=== PATIENT | female | born 1940 ===

== ENCOUNTER 2021-10-03 14:04 | Inpatient (IN) | payer MEDICARE, OTHER ==
[~2021-10-03] VITALS: Ht 152.4 cm; Wt 58.9 kg
--- NOTE | 2021-10-03 15:00 | NUR ---
Admission Note with Justification for Admission to [facility] Patient admitted to [facility] for protective oversight for emergency stabilization of acute psychiatric crisis. Pt admitted from: Home Mode of arrival: POV Accompanied By: Family Precipitating behaviors that initiated intake and admission: Description of failure of out patient attempts at stabilization in previous setting list behavior and medication trials: Behaviors and assessment findings upon admission: Patient is friendly with staff. She is upset with family as they told her she is just coming to do PT not to be admitted. She has a small skin tear on left forearm. She reports 10/10 anxiety, denies SI/pain/discomfort. Patient is A/O X3, not oriented to situation as she wasn't informed. She has upper dentures. She has clean clothes on but skin is dirty under breast. Plan: Admit for protective oversight for adjustment and stabilization of medications, behaviors and mood. Intense treatment regimen including groups, medication adjustments, therapy, consistent regimen for ADL's, self care, and sleep hygiene. Daily monitoring by Inpatient staff, Psychiatry, and Medical Physician.
[2021-10-03 16:28] VITALS: BP 160/85
[2021-10-03] MEDS ORDERED: METHYL SALICYLATE/MENTHOL TOPICAL OINTMENT 57GM TUBE. TP PRN (17:00)
[2021-10-03] MEDS ORDERED: MAGNESIUM HYDROXIDE 2,400 MG/30 ML ORAL.SUSP. PO PRN (17:00)
[2021-10-03] MEDS ORDERED: DONE10TA7 PO (18:30)
[2021-10-03] MEDS ORDERED: ASPI-171 PO (18:30)
[2021-10-03] MEDS ORDERED: CELE-20 PO (18:30)
[2021-10-03] MEDS ORDERED: LISI5TAB15 PO (18:30)
[2021-10-03] MEDS ORDERED: ATOR40TA59 PO (18:30)
[2021-10-03] MEDS ORDERED: ALPR0.254 PO (18:30)
[2021-10-03] MEDS ORDERED: MULT-445 PO (19:36)
[2021-10-03] MEDS ORDERED: LIDO700A21 TP (19:36)
[2021-10-03] MEDS ORDERED: traZODone 50 MG TABLET. PO PRN (19:45)
[2021-10-03 19:47] LABS: BASO % 0 % (0-3); EOS # 0.1 x10^3/uL (0.0-0.7); EOS % 1 % (0-3); HEMATOCRIT 37.7 % (36.0-47.0); HEMOGLOBIN 12.6 g/dL (12.0-15.5); LYMPH # 1.4 x10^3/uL (1.0-4.8); LYMPH % 16 % (24-48); MEAN CORPUSCULAR HEMOGLOBIN 31 pg (25-35); MEAN CORPUSCULAR HGB CONC 34 g/dL (31-37); MEAN CORPUSCULAR VOLUME 93 fL (79-100); MONO # 0.7 x10^3/uL (0.0-1.1); MONO % 8 % (0-9); NEUT # 6.6 x10^3uL (1.8-7.7); NEUT % 74 % (31-73); PLATELET COUNT 206 x10^3/uL (140-400); RED BLOOD COUNT 4.05 x10^6/uL (3.50-5.40); RED CELL DISTRIBUTION WIDTH 14.1 % (11.5-14.5); WHITE BLOOD COUNT 8.9 x10^3/uL (4.0-11.0)
[2021-10-03 20:00] LABS: ALBUMIN 3.3 g/dL (3.4-5.0); ALBUMIN/GLOBULIN RATIO 0.9 (1.0-1.7); CALCIUM 8.7 mg/dL (8.5-10.1); CREATININE 0.9 mg/dL (0.6-1.0); GFR 59.8; MAGNESIUM 2.4 mg/dL (1.8-2.4); POTASSIUM 3.9 mmol/L (3.5-5.1); TOTAL BILIRUBIN 0.4 mg/dL (0.2-1.0); TOTAL PROTEIN 7.1 g/dL (6.4-8.2)
[2021-10-03] MEDS: DONEPEZIL HCL 10 MG TABLET PO SCH (20:30)
[2021-10-03] MEDS: ALPRAZolam 0.25 MG TABLET PO SCH (20:30)
[2021-10-03] MEDS: PATCH REMOVAL. MC SCH (20:30)
--- NOTE | 2021-10-03 20:32 | PDOC ---
Exam Note: Rip Note: Please also refer to the separate dictated note~for this date of service dictated separately.~Patient seen individually. Discussed the patient with Nursing staff reviewed the chart.~Reviewed interim history and current functioning. Reviewed vital signs,~Labs/ Radiology~and current medications noted below. Continue current treatment with the changes noted in the dictated addendum note Assessment: Vital Signs/I&O: Vital Signs Date Time Temp Pulse Resp B/P (MAP) Pulse Ox O2 Delivery O2 Flow Rate FiO2 10/03/21 16:28 98.6 91 18 160/85 (110) 97 Labs: Laboratory Tests Test 10/03/21 19:33 Sodium Level 144 mmol/L (136-145) Potassium Level 3.9 mmol/L (3.5-5.1) Chloride Level 107 mmol/L (98-107) Carbon Dioxide Level 27 mmol/L (21-32) Anion Gap 10 (6-14) Blood Urea Nitrogen 14 mg/dL (7-20) Creatinine 0.9 mg/dL (0.6-1.0) Estimated GFR (Cockcroft-Gault) 59.8 BUN/Creatinine Ratio 16 (6-20) Glucose Level 95 mg/dL (70-99) Calcium Level 8.7 mg/dL (8.5-10.1) Magnesium Level 2.4 mg/dL (1.8-2.4) Total Bilirubin 0.4 mg/dL (0.2-1.0) Aspartate Amino Transferase (AST) 21 U/L (15-37) Alanine Aminotransferase (ALT) 19 U/L (14-59) Alkaline Phosphatase 83 U/L (46-116) Total Protein 7.1 g/dL (6.4-8.2) Albumin 3.3 g/dL (3.4-5.0) L Albumin/Globulin Ratio 0.9 (1.0-1.7) L Current Medications: Meds: Current Medications Medications (Trade) Dose Ordered Sig/Mayito Route PRN Reason Start Time Stop Time Status Last Admin Dose Admin Alprazolam (Xanax) 0.25 mg QHS PO 10/03/21 21:00 10/03/21 20:30 Donepezil HCl (Aricept) 10 mg QHS PO 10/03/21 21:00 10/03/21 20:30 I have reviewed the current psychotropics carefully including drug interactions. Risk benefit ratio favors no change other than as noted in my dictated progress note. NÉSTOR WONG MD Oct 03, 2021 20:32
[2021-10-03] MEDS ORDERED: DONEPEZIL 23 MG TABLET PO SCH (21:00)
[2021-10-03] MEDS ORDERED: ALPRAZolam 0.25 MG TABLET PO ONE (21:00)
[2021-10-03] MEDS ORDERED: PATCH REMOVAL. MC SCH (21:00)
--- NOTE | 2021-10-03 22:28 | NUR ---
Pt located in her room this evening. Pt pleasant and interactive. Appears very anxious and is hyperverbal. A/O x3, except to situation. Pt states that her 4 children brought her here and told her she was going to PT. Pt compliant with whole medications. Pt knew the 2 pills that she takes at night and what their indications were. Pt reported that she has had numerous falls; she has broken her L femur, both knees and her right wrist is currently healing from a recent fall. Pt currently sleeping in bed with bed alarm on.
[2021-10-04 00:23] LABS: BACTERIA,URINE FEW /HPF (0-FEW); BILIRUBIN,URINE NEG (NEG); CLARITY,URINE CLEAR; COLOR,URINE YELLOW; GLUCOSE,URINE NEG (NEG); NITRITE,URINE NEG (NEG); RBC,URINE 0 /HPF (0-2); UROBILINOGEN,URINE 0.2 mg/dL (0.2 mg/dL)
[2021-10-04 00:24] LABS: SQUAMOUS EPITHELIAL CELL,UR FEW /LPF
[2021-10-04 05:52] VITALS: BP 126/73
[2021-10-04] MEDS ORDERED: ASPIRIN CHEWABLE 81 MG TABLET. PO SCH (08:00)
[2021-10-04] MEDS: ASPIRIN ENTERIC COATED 81 MG TABLET.DR. PO SCH (09:00)
[2021-10-04] MEDS ORDERED: LISINOPRIL 5 MG TABLET. PO SCH (09:00)
[2021-10-04] MEDS ORDERED: ATORVASTATIN CALCIUM 20 MG TABLET PO SCH ×2 (09:00)
[2021-10-04] MEDS: LISINOPRIL 5 MG TABLET. PO SCH (09:00)
[2021-10-04] MEDS ORDERED: CELECOXIB 100 MG CAPSULE PO SCH (09:00)
[2021-10-04] MEDS ORDERED: LIDOCAINE (700MG/PATCH) PATCH. TD SCH (09:00)
[2021-10-04] MEDS: LIDOCAINE (700MG/PATCH) PATCH. TP SCH (09:00)
[2021-10-04] MEDS: MULTIVITAMIN with MINERAL TABLET. PO SCH (09:01)
[2021-10-04] MEDS: CELECOXIB 100 MG CAPSULE PO SCH (09:01)
[2021-10-04 15:23] VITALS: BP 124/59
--- NOTE | 2021-10-04 15:33 | NUR ---
Nursing note: Patient is in bed room for morning medication & assessment. She is compliant with medications taken whole. She is alert and oriented x 4, she needed reminders for situation. She ambulates independently with walker, can be unstable at times. She denies any SI at this time. Patient denies pain/discomfort. She can be forgetful, anxious, & hyperverbal. She walked in the hallway several times through the day. She is currently in her room. Will continue to monitor.
--- NOTE | 2021-10-04 16:10 | NUR ---
BRIANNA received a call from pt dtr/DENNY, Jaylene, and informed her that SW planned to see pt tomorrow and would also call her to confirm pt reports. Jaylene wanted to let SW know that she would not be going home. Pt has medical issues and his main concern is his heart; he does not feel that he is able to care for pt as she has had more falls and he completes most of the house work. This has been discussed with pt but the family is able to recognize pt does not have a great memory and are not sure she has retained this. SW will attempt to have this discussion with pt and see if she remembers having this conversation and touch base with her tomorrow.
[2021-10-04 16:55] LABS: THYROID STIM HORMONE (TSH) 1.624 uIU/mL (0.358-3.740)
--- NOTE | 2021-10-04 20:55 | PDOC ---
Exam Note: Rip Note: Please also refer to the separate dictated note~for this date of service dictated separately.~Patient seen individually. Discussed the patient with Nursing staff reviewed the chart.~Reviewed interim history and current functioning. Reviewed vital signs,~Labs/ Radiology~and current medications noted below. Continue current treatment with the changes noted in the dictated addendum note Assessment: Vital Signs/I&O: Vital Signs Date Time Temp Pulse Resp B/P (MAP) Pulse Ox O2 Delivery O2 Flow Rate FiO2 10/04/21 15:23 97.8 79 18 124/59 (80) 97 I & O 10/03/21 10/03/21 10/04/21 15:00 23:00 07:00 Intake Total 600 ml Balance 600 ml Labs: Laboratory Tests Test 10/03/21 22:30 Urine Collection Type Unknown Urine Color Yellow Urine Clarity Clear Urine pH 6.0 Urine Specific Rudyard 1.025 Urine Protein Neg (NEG-TRACE) Urine Glucose (UA) Neg mg/dL (NEG) Urine Ketones (Stick) Neg mg/dL (NEG) Urine Blood Neg (NEG) Urine Nitrite Neg (NEG) Urine Bilirubin Neg (NEG) Urine Urobilinogen Dipstick 0.2 mg/dL (0.2 mg/dL) Urine Leukocyte Esterase Small (NEG) Urine RBC 0 /HPF (0-2) Urine WBC 1-4 /HPF (0-4) Urine Squamous Epithelial Cells Few /LPF Urine Bacteria Few /HPF (0-FEW) Current Medications: Meds: Current Medications Medications (Trade) Dose Ordered Sig/Mayito Route PRN Reason Start Time Stop Time Status Last Admin Dose Admin Alprazolam (Xanax) 0.25 mg QHS PO 10/03/21 21:00 10/03/21 20:30 Aspirin (Aspirin Enteric Coated) 81 mg DAILY PO 10/04/21 09:00 10/04/21 09:00 Donepezil HCl (Aricept) 10 mg QHS PO 10/03/21 21:00 10/03/21 20:30 Lisinopril (Prinivil) 5 mg DAILY PO 10/04/21 09:00 10/04/21 09:00 Atorvastatin Calcium (Lipitor) 40 mg DAILY PO 10/04/21 09:00 10/04/21 09:01 Celecoxib (CeleBREX) 200 mg DAILY PO 10/04/21 09:00 10/04/21 09:01 Multivitamins/ Calcium (Thera-M Plus) 1 tab DAILY PO 10/04/21 09:00 10/04/21 09:01 I have reviewed the current psychotropics carefully including drug interactions. Risk benefit ratio favors no change other than as noted in my dictated progress note. NÉSTOR WONG MD Oct 04, 2021 20:55
[2021-10-04] MEDS: PATCH REMOVAL. MC SCH (21:00)
[2021-10-04] MEDS: DONEPEZIL HCL 10 MG TABLET PO SCH (21:36)
[2021-10-04] MEDS: ALPRAZolam 0.25 MG TABLET PO SCH (21:36)
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
[2021-10-05 00:38] LABS: THYROXINE 7.7 ug/dL (4.5-12.0)
[2021-10-05 01:13] LABS: HEMOGLOBIN A1C 5.8 % (4.8-5.6)
--- NOTE | 2021-10-05 04:35 | NUR ---
Nursing Note The patient was located in her room for her assessment and medication pass. The patient took her medication whole. The patient was alert to name, date and location. The patient is currently sleeping in her room.
[2021-10-05 06:09] VITALS: BP 123/72
[2021-10-05] MEDS: ASPIRIN ENTERIC COATED 81 MG TABLET.DR. PO SCH (08:25)
[2021-10-05] MEDS: MULTIVITAMIN with MINERAL TABLET. PO SCH (08:25)
[2021-10-05] MEDS: SERTRALINE 25 MG TABLET. PO SCH (08:25)
[2021-10-05] MEDS: CELECOXIB 100 MG CAPSULE PO SCH (08:26)
[2021-10-05] MEDS: LISINOPRIL 5 MG TABLET. PO SCH (08:26)
[2021-10-05] MEDS: LIDOCAINE (700MG/PATCH) PATCH. TP SCH (09:00)
--- NOTE | 2021-10-05 09:14 | NUR ---
Pt A&Ox4, pleasant and cooperative. She is compliant with whole meds. She is appropriate with her interactions and is absent of disruptive behaviors on the unit. She c/o 8/10 pain in the R shoulder, Lidocaine patch applied and reassessment is pending. Plan of care continues, will pass to next shift.
--- NOTE | 2021-10-05 12:42 | CONS ---
DATE OF CONSULTATION: 10/04/2021 REASON FOR CONSULTATION: Medical management. HISTORY OF PRESENT ILLNESS: The patient is an 81-year-old female patient who presented from home ____ on account of being paranoid with suicidal thoughts, wants to , sundowning, agitated, helpless, decreased appetite. She is agitated, expresses no one likes her; hopeless, feels worthless, has no appetite and sleeps excessively. She was seen by her primary care physician and was started on Xanax and Aricept. Her family has been visiting here with support with care; however, apparently her grandson has committed suicide at 15 years, couple of years ago that she mentioned that and was therefore admitted to [facility] for inpatient psychiatric stabilization. PAST MEDICAL HISTORY: Significant for hypertension, hyperlipidemia. Has also generalized osteoarthritis as well as essential tremors. PAST SURGICAL HISTORY: Significant for left femur fracture, status post open reduction internal fixation, bilateral total knee arthroplasty and fracture of the right forearm treated with splint. PAST PSYCHIATRIC HISTORY: Significant for anxiety, paranoia and dementia. ALLERGIES: SHE IS ALLERGIC TO PENICILLIN. MEDICATIONS: She is currently on Aricept 10 mg once a day, atorvastatin calcium 40 mg at bedtime, lisinopril 5 mg once a day, aspirin 81 mg once a day, Celebrex 200 mg once a day, alprazolam 0.25 mg at bedtime. She is on Lidoderm patch apply topically for 12 hours on, 12 hours off. Multivitamin 1 tablet once a day. FAMILY HISTORY: Noncontributory. SOCIAL HISTORY: She is and lives with her second . She does not smoke, drink alcohol or recreational drugs. REVIEW OF SYSTEMS: As per history of present illness. PHYSICAL EXAMINATION: GENERAL: When I examined her, she was sitting comfortably in her chair in no apparent respiratory distress. No pallor, jaundice, cyanosis or thyromegaly. No jugular venous distention. No limb edema. VITAL SIGNS: Her heart rate was 79, blood pressure is 124/59, temperature was 97.8, respiratory rate was 18 and oxygen saturation was 97% on room air. HEAD, EYES, EARS, NOSE, AND THROAT: Normocephalic, atraumatic. NECK: Supple. HEART: Normal first and second heart sounds. No gallop, rub or murmur. CHEST: Clear to auscultation, no crepitation or rhonchi. ABDOMEN: Distended, soft, nontender. NEUROLOGIC: She is awake, alert, responding appropriately. All cranial nerves intact. She moves extremities without difficulty. She ambulates with a walker. LABORATORY DATA: Showed a white cell count of 8,900, hemoglobin 12.6, hematocrit 37.7, MCV 93 and platelet count 206,000 with normal manual differential. Her chemistry showed a serum sodium 144, potassium 3.9, chloride 107, bicarbonate 27, anion gap of 10, BUN 14, creatinine 0.9. Estimated GFR was 59 mL per minute. Her glucose was 95, calcium was 8.7, magnesium was 2.4. Serum iron, TIBC and serum iron saturation are all consistent with replete iron stores. Her total bilirubin, AST, ALT, alkaline phosphatase were normal. Total protein 7.1, albumin 3.3. Serum triglyceride was 61. Total cholesterol 176, LDL cholesterol was 86, VLDL was 12, HDL was 78 and the ratio was 2. Her serum vitamin B12 was 898 picograms per mL, 25-hydroxy vitamin D was 39.8. TSH was 1.6324. Her D-dimer was 1.64. Urinalysis essentially unremarkable and her Treponema pallidum antibodies were nonreactive. ASSESSMENT: In summary, this is an 81-year-old female patient who was admitted from home on account of being paranoid with suicidal ideation, she wants to , sundowning, agitated, expresses no one likes her, hopeless, feels worthless, with no appetite and sleeps excessively. All this in a background of major depressive disorder. She is here for inpatient psychiatric stabilization. Medically, she seemed to be generally stable. Her vital signs are well within acceptable range. Her lab works are all within acceptable range. PLAN: My plan is to continue with all her current medications. I will obviously follow with labs and make necessary recommendation. Thank you, Dr. Paiz, for allowing me to participate in the care of this patient. BETTINA/REESE/ANDRE JONES: Akilah TID: [id number]
--- NOTE | 2021-10-05 15:00 | NUR ---
PSYCHOSOCIAL ASSESSMENT ADMISSION DATE: 10/03/21 CONTACT INFORMATION: DPOA/Guardian Contact Name: Jaylene Tony Contact Address: [place], [place] Contact Phone #: ETHNIC ORIGIN: REASONS FOR ADMISSION: Agitated Confusion/Disoriented Depressed Relation/conflict Suicidal ideation Suspicious/paranoid ADDITIONAL ADMISSION COMMENTS: According to the intake, pt is paranoid re: her stepdtr, has SI thoughts of taking pills/wants to , sundowning, agitated, expresses no one likes her, hopeless, feels worthless, no appetite, sleeping excessively REASON FOR ADMISSION IN PATIENT/FAMILY'S OWN WORDS: She's continuing to have a difficult time and needs to be evaluated for further care. PATIENT/FAMILY EXPECTATIONS FOR ADMISSION: Behavior and medication management. LIVING SITUATION: Patient lives with: Spouse Other living arrangements: Lives at home with Contact Name: Contact Address: [facility] [address] [place] [address]; [place] [address] Contact Phone #: Contact Fax #: FAMILY RELATIONS: Marital Status: # of Marriages: 2 # of Children: 6 [facility] Family Support: Concerned Cooperative Involved in [place] Planning Additional Comments r/t Family: Pt her first Juan Jose right out of high school in 1956. Pt reports that she met Juan Jose through a friend. She was 13 and he was 17; the second she graduated high school the two were . Pt and Ray had 6 children: Their oldest Rizwana at the age of 60 due to Pulmonary Fibrosis. The other five of her children are living and live in [place], [place] area. Juan Jose on February 26, 2009 due to having lung complications. Pt knew her neighbor Nadir for some time as he and her were acquaintances. Nadir paid his respects to the pt, as he also lost his around the same time. The two started talking and began further dating. Pt and her Nadir dated for 7 years and then 4 years ago on 08/07/17 "in [facility] in [place]". SIGNIFICANT PSYCHIATRIC/MEDICAL HISTORY: Psychiatric/Treatment History: This is pt first psychiatric stay on [facility]. Pt has previous diagnosis of Dementia and Anxiety through her PCP Pertinent Family History: Pt mother had Dementia; her father passed from a heart attack and her sister from lung cancer. HISTORICAL DATA: Childhood Environment: [place] Supportive Childhood Environment Additional Comments: According to pt, "oh I had the best childhood". Pt reports that she and her twin sister were born two months early. "my mother almost during delivery but they save her and saved us". Pt reports being very closer to her sister and brother. Pt mother at the age of 80 and her father at the age of 76. Pt sister has also in and her brother in 2010. 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 Prior to pt worked at a [employer] "off and [employer]" on the 10pm to 6AM shift. SW questioned what pt did and she noted that she went over receipts and aguiar once restaurant dropped their bags off after hours. service: N Jainism background: Pt attends the [employer] in [place] Sexual orientation: Heterosexual Educational Level: Pt graduated the 12th grade Past/Present Interests/Hobbies: Pt notes that she loves to travel and wished she could do more. Financial support/resources: Other Monthly income: Person handling finances: Pt and family handle pt finances Do you have a history of legal problems: N Cultural considerations: SOCIAL RELATIONSHIPS-CURRENT/PAST: Psychiatrist: None PCP: Dr. Valentin Counselor/Therapist: None [facility]: None Support Group: None [employer] Customer Service: None Other relationships: None STRENGTHS & WEAKNESSES: Patient's strengths: Good family support Financial support Ambulatory Approachable Other patient strengths: Patient's weaknesses: Impulsive Education level Other patient weaknesses: PRELIMINARY PLAN OF TREATMENT: Preliminary plan: Dec. Anxiety/Panic Dec. Symp. Depression Decrease Isolation Promote Coping Skill Medication Stabilization Other preliminary treatment comments: DISCHARGE PLANNING: Discharge planning/disposition: Placement Needed Additional discharge needs identified: Referrals to a higher level of care ADDITIONAL INFORMATION: Other Pertinent Data: SW met with pt to complete the PSA. Pt was very forthcoming and pleasant during the assessment. Pt noted that she has fallen a couple times within the last few months. She noted breaking both femurs and having surgery for those and her right wrist which currently has a brace on. Pt was very hyper focused on being able to get out and get back home to her . "he needs me to help take care of him". Pt noted that her is having heart trouble and does not want to be here in the event something happens. Pt also stated that she felt that her step-daughter created a lot of the issue happening. "She never liked me. He does whatever she tells him to do, which means he will probably divorce me and I'll have no home to go to". Pt informed SW that she does do things around the house (e.g. vacuum, dusting, dishes) and her does the cooking. He also makes sure pt gets her medications. Pt was able to tell SW the medications that she was on and hoped that no other medications were given to her. SW questioned pt about her depression and pt noted "you know, you make me feel better just allowing me to get it all out like this". Pt denies any SI but refused any further counseling as she feels SW just worked wonders with her. SW questioned what would happen if she was not able to go home. "Then I'll sleep in my car. If he doesn't want me back because his daughter who acts more like his wants him to divorce me, then I'll sleep in my car because I don't want to be anywhere near him if he doesn't want me to continue to be a Brown". Pt questioned SW if she would for sure be out in two weeks. SW noted that two weeks is the minimum amount for the program but it could be longer depending on medications and what is found out about her placement. Pt noted that she has money so she can get her own place if she needed to. Pt continued to state that she won the lottery "November. It was [employer] . I took my dollar, chose my children's date of and ended up winning". (SW was able to confirm with the family that this is true). SW will continue to meet with pt and keep her family updated on pt progress.
[2021-10-05 15:13] VITALS: BP 116/71
--- NOTE | 2021-10-05 16:42 | NUR ---
BRIANNA contacted pt dtr/DPOA, Jaylene, to update her on the completion of the psychosocial with pt. Jaylene was able to confirm the information that pt gave, as well as input more information that pt left out. Pt did not mention to SW that pt mother had Dementia. Jaylene is not sure why her mother always "leaves that bit of information out, but I know it's important for you guys to know". Pt dtr is not surprised on how fixated she is with pt and step-daughter although pt step-daughter has never done anything bad towards pt. SW was able to inform Jaylene that she still believes that he is going home to live with her , Nadir, despite being told that he can no longer physically care for pt any longer. BRIANNA will plan to contact Jaylene for treatment team tomorrow.
[2021-10-05] MEDS: DONEPEZIL HCL 10 MG TABLET PO SCH (20:19)
[2021-10-05] MEDS: PATCH REMOVAL. MC SCH (20:19)
[2021-10-05] MEDS: ATORVASTATIN CALCIUM 20 MG TABLET PO SCH (20:19)
[2021-10-05] MEDS: ALPRAZolam 0.25 MG TABLET PO SCH (20:19)
--- NOTE | 2021-10-05 20:23 | PDOC ---
Exam Note: Rip Note: Please also refer to the separate dictated note~for this date of service dictated separately.~Patient seen individually. Discussed the patient with Nursing staff reviewed the chart.~Reviewed interim history and current functioning. Reviewed vital signs,~Labs/ Radiology~and current medications noted below. Continue current treatment with the changes noted in the dictated addendum note Assessment: Vital Signs/I&O: Vital Signs Date Time Temp Pulse Resp B/P (MAP) Pulse Ox O2 Delivery O2 Flow Rate FiO2 10/05/21 15:13 98.3 85 16 116/71 (86) 100 I & O 10/04/21 10/04/21 10/05/21 15:00 23:00 07:00 Intake Total 860 ml 360 ml Balance 860 ml 360 ml Current Medications: Meds: Current Medications Medications (Trade) Dose Ordered Sig/Mayito Route PRN Reason Start Time Stop Time Status Last Admin Dose Admin Acetaminophen (Tylenol) 650 mg PRN Q6HRS PRN PO MILD PAIN / TEMP > 100.3'F 10/03/21 17:00 Multi-Ingredient Ointment (Analgesic [place]) 1 claudia PRN QID PRN TP MUSCLE PAIN 10/03/21 17:00 Al Hydroxide/Mg Hydroxide (Mylanta Plus Xs) 15 ml PRN AFTMEALHC PRN PO DYSPEPSIA 10/03/21 17:00 Magnesium Hydroxide (Milk Of Magnesia) 2,400 mg PRN QHS PRN PO CONSTIPATION 10/03/21 17:00 Celecoxib (CeleBREX) 200 mg DAILY PO 10/04/21 09:00 UNV Aspirin (Aspirin Chewable) 81 mg DAILYWBKFT PO 10/04/21 08:00 UNV Alprazolam (Xanax) 0.25 mg QHS ONCE PO 10/03/21 21:00 10/03/21 21:01 UNV Atorvastatin Calcium (Lipitor) 40 mg DAILY PO 10/04/21 09:00 UNV Lisinopril (Prinivil) 5 mg DAILY PO 10/04/21 09:00 UNV Donepezil HCl (Aricept) 10 mg QHS PO 10/03/21 21:00 UNV Lidocaine (Lidoderm) 1 patch DAILY TD 10/04/21 09:00 UNV Miscellaneous (Lidoderm Patch Removal) 1 ea QHS MC 10/03/21 21:00 UNV Trazodone HCl (Desyrel) 25 mg PRN QHS PRN PO INSOMNIA, MAY REPEAT X1 10/03/21 19:45 Alprazolam (Xanax) 0.25 mg QHS PO 10/03/21 21:00 10/05/21 20:19 Aspirin (Aspirin Enteric Coated) 81 mg DAILY PO 10/04/21 09:00 10/05/21 08:25 Donepezil HCl (Aricept) 10 mg QHS PO 10/03/21 21:00 10/05/21 20:19 Lisinopril (Prinivil) 5 mg DAILY PO 10/04/21 09:00 10/05/21 08:26 Atorvastatin Calcium (Lipitor) 40 mg DAILY PO 10/04/21 09:00 10/05/21 15:26 DC 10/04/21 09:01 Celecoxib (CeleBREX) 200 mg DAILY PO 10/04/21 09:00 10/05/21 08:26 Lidocaine (Lidoderm) 1 patch DAILY TP 10/04/21 09:00 10/05/21 09:00 Multivitamins/ Calcium (Thera-M Plus) 1 tab DAILY PO 10/04/21 09:00 10/05/21 08:25 Miscellaneous (Lidoderm Patch Removal) 1 ea QHS 10/03/21 21:00 10/05/21 20:19 Sertraline HCl (Zoloft) 25 mg DAILY PO 10/05/21 09:00 10/07/21 10:00 10/05/21 08:25 Sertraline HCl (Zoloft) 50 mg DAILY PO 10/08/21 09:00 Atorvastatin Calcium (Lipitor) 40 mg HS PO 10/05/21 21:00 10/05/21 20:19 Current Medications Medications (Trade) Dose Ordered Sig/Mayito Route PRN Reason Start Time Stop Time Status Last Admin Dose Admin Sertraline HCl (Zoloft) 25 mg DAILY PO 10/05/21 09:00 10/07/21 10:00 10/05/21 08:25 Atorvastatin Calcium (Lipitor) 40 mg HS PO 10/05/21 21:00 10/05/21 20:19 I have reviewed the current psychotropics carefully including drug interactions. Risk benefit ratio favors no change other than as noted in my dictated progress note. Diagnosis: Problems: (1) Major depressive disorder, recurrent episode (2) Mild cognitive impairment (3) Anxiety disorder, unspecified NÉSTOR WONG MD Oct 05, 2021 20:23
--- NOTE | 2021-10-06 02:08 | NUR ---
Nursing Note The patient was located in her room for her assessment and medication pass. The patient took her medication whole. The patient was alert to name, date and location. The patient was very resistive to taking a shower but agreed to take one in the AM during am cares. The patient is currently sleeping in her room.
[2021-10-06 06:17] VITALS: BP 112/70
--- NOTE | 2021-10-06 06:58 | PDOC ---
Exam Note: Rip Note: This note is a late entry for 10/04/2021 covers elements not covered in my initial note. Subjective: The patient was seen individually in the evening of 10/04/2021 with Ramiro HINKLE, discussed and reviewed the chart. The patient slept 7-1/4 hours previous night. She minimizes that she is depressed or anxious but in fact as per nursing report she does appear quite anxious and depressed. She has a history of falls. Denies suicidal ideation. I met with her at length in her room. Review of Systems: Impaired ambulation. No CV, , pulmonary, eye, ENT system symptoms on review. Mental Status Exam: The patient is reasonably oriented. Speech is coherent, quite pressured at times, anxious, somewhat obsessing about discharge plans, feels her will pass away if she does not get home quickly, totally rationalizes any symptoms that prompted this hospitalization. Insight is limited. Judgment intact to standard questioning. Attention span short. Mood and affect depressed and anxious. Laboratory Data: Reviewed. Impression: Major depressive disorder, recurrent. Mild cognitive impairment. Anxiety disorder unspecified. Plan: Start patient on Zoloft 25 mg a day for 3 days, then 50 mg a day thereafter. Make further adjustments as clinically indicated. Assessment: Vital Signs/I&O: Vital Signs Date Time Temp Pulse Resp B/P (MAP) Pulse Ox O2 Delivery O2 Flow Rate FiO2 10/06/21 06:17 97.7 76 16 112/70 (84) 96 I & O 10/05/21 10/05/21 10/06/21 15:00 23:00 07:00 Intake Total 840 ml 120 ml Balance 840 ml 120 ml Current Medications: Meds: Current Medications Medications (Trade) Dose Ordered Sig/Mayito Route PRN Reason Start Time Stop Time Status Last Admin Dose Admin Acetaminophen (Tylenol) 650 mg PRN Q6HRS PRN PO MILD PAIN / TEMP > 100.3'F 10/03/21 17:00 Multi-Ingredient Ointment (Analgesic [place]) 1 claudia PRN QID PRN TP MUSCLE PAIN 10/03/21 17:00 Al Hydroxide/Mg Hydroxide (Mylanta Plus Xs) 15 ml PRN AFTMEALHC PRN PO DYSPEPSIA 10/03/21 17:00 Magnesium Hydroxide (Milk Of Magnesia) 2,400 mg PRN QHS PRN PO CONSTIPATION 10/03/21 17:00 Celecoxib (CeleBREX) 200 mg DAILY PO 10/04/21 09:00 UNV Aspirin (Aspirin Chewable) 81 mg DAILYWBKFT PO 10/04/21 08:00 UNV Alprazolam (Xanax) 0.25 mg QHS ONCE PO 10/03/21 21:00 10/03/21 21:01 UNV Atorvastatin Calcium (Lipitor) 40 mg DAILY PO 10/04/21 09:00 UNV Lisinopril (Prinivil) 5 mg DAILY PO 10/04/21 09:00 UNV Donepezil HCl (Aricept) 10 mg QHS PO 10/03/21 21:00 UNV Lidocaine (Lidoderm) 1 patch DAILY TD 10/04/21 09:00 UNV Miscellaneous (Lidoderm Patch Removal) 1 ea QHS MC 10/03/21 21:00 UNV Trazodone HCl (Desyrel) 25 mg PRN QHS PRN PO INSOMNIA, MAY REPEAT X1 10/03/21 19:45 Alprazolam (Xanax) 0.25 mg QHS PO 10/03/21 21:00 10/05/21 20:19 Aspirin (Aspirin Enteric Coated) 81 mg DAILY PO 10/04/21 09:00 10/05/21 08:25 Donepezil HCl (Aricept) 10 mg QHS PO 10/03/21 21:00 10/05/21 20:19 Lisinopril (Prinivil) 5 mg DAILY PO 10/04/21 09:00 10/05/21 08:26 Atorvastatin Calcium (Lipitor) 40 mg DAILY PO 10/04/21 09:00 10/05/21 15:26 DC 10/04/21 09:01 Celecoxib (CeleBREX) 200 mg DAILY PO 10/04/21 09:00 10/05/21 08:26 Lidocaine (Lidoderm) 1 patch DAILY TP 10/04/21 09:00 10/05/21 09:00 Multivitamins/ Calcium (Thera-M Plus) 1 tab DAILY PO 10/04/21 09:00 10/05/21 08:25 Miscellaneous (Lidoderm Patch Removal) 1 ea QHS MC 10/03/21 21:00 10/05/21 20:19 Sertraline HCl (Zoloft) 25 mg DAILY PO 10/05/21 09:00 10/07/21 10:00 10/05/21 08:25 Sertraline HCl (Zoloft) 50 mg DAILY PO 10/08/21 09:00 Atorvastatin Calcium (Lipitor) 40 mg HS PO 10/05/21 21:00 10/05/21 20:19 Current Medications Medications (Trade) Dose Ordered Sig/Mayito Route PRN Reason Start Time Stop Time Status Last Admin Dose Admin Sertraline HCl (Zoloft) 25 mg DAILY PO 10/05/21 09:00 10/07/21 10:00 10/05/21 08:25 Atorvastatin Calcium (Lipitor) 40 mg HS PO 10/05/21 21:00 10/05/21 20:19 I have reviewed the current psychotropics carefully including drug interactions. Risk benefit ratio favors no change other than as noted in my dictated progress note. Diagnosis: Problems: (1) Major depressive disorder, recurrent episode (2) Mild cognitive impairment (3) Anxiety disorder, unspecified NÉSTOR WONG MD Oct 06, 2021 06:58
--- NOTE | 2021-10-06 07:17 | PDOC ---
Exam Note: Rip Note: This note is a late entry for 10/05/2021 covers elements not covered in my initial note. Subjective: The patient was seen individually in the evening of 10/05/2021 with Nannette HINKLE, discussed and reviewed the chart. The patient slept 8-1/4 hours previous night. She has been fairly pleasant, compliant but again minimizes, rationalizes most of what prompted her admission, very limited insight in this respect despite my lengthy discussion with her on what got her to the hospital in the first place. She is alert and oriented x4. Review of Systems: No CV, , pulmonary, eye, ENT system symptoms on review. Mental Status Exam: The patient is reasonably oriented. Speech is coherent, rapid. Abstraction fair. Computation impaired. Language function intact. She does have some short-term memory deficits. No active suicidal or homicidal ideation. She is somewhat paranoid states she talked to the social media assistant today but the social media assistant was making notes and the patient believes these will be held against her. I addressed this with her at some length to help placate her, improve her insight with limited result. Laboratory Data: Reviewed. Impression: Major depressive disorder, recurrent, rule out psychotic features. Mild cognitive impairment. Anxiety disorder unspecified. Plan: Continue current psychotropics including gradually increase the Zoloft, may add BuSpar for anxiety. Maintain Aricept, Xanax 0.25 mg daily, trazodone h.s. p.r.n. insomnia. Assessment: Vital Signs/I&O: Vital Signs Date Time Temp Pulse Resp B/P (MAP) Pulse Ox O2 Delivery O2 Flow Rate FiO2 10/06/21 06:17 97.7 76 16 112/70 (84) 96 I & O 10/05/21 10/05/21 10/06/21 15:00 23:00 07:00 Intake Total 840 ml 120 ml Balance 840 ml 120 ml Current Medications: Meds: Current Medications Medications (Trade) Dose Ordered Sig/Mayito Route PRN Reason Start Time Stop Time Status Last Admin Dose Admin Acetaminophen (Tylenol) 650 mg PRN Q6HRS PRN PO MILD PAIN / TEMP > 100.3'F 10/03/21 17:00 Multi-Ingredient Ointment (Analgesic [place]) 1 claudia PRN QID PRN TP MUSCLE PAIN 10/03/21 17:00 Al Hydroxide/Mg Hydroxide (Mylanta Plus Xs) 15 ml PRN AFTMEALHC PRN PO DYSPEPSIA 10/03/21 17:00 Magnesium Hydroxide (Milk Of Magnesia) 2,400 mg PRN QHS PRN PO CONSTIPATION 10/03/21 17:00 Celecoxib (CeleBREX) 200 mg DAILY PO 10/04/21 09:00 UNV Aspirin (Aspirin Chewable) 81 mg DAILYWBKFT PO 10/04/21 08:00 UNV Alprazolam (Xanax) 0.25 mg QHS ONCE PO 10/03/21 21:00 10/03/21 21:01 UNV Atorvastatin Calcium (Lipitor) 40 mg DAILY PO 10/04/21 09:00 UNV Lisinopril (Prinivil) 5 mg DAILY PO 10/04/21 09:00 UNV Donepezil HCl (Aricept) 10 mg QHS PO 10/03/21 21:00 UNV Lidocaine (Lidoderm) 1 patch DAILY TD 10/04/21 09:00 UNV Miscellaneous (Lidoderm Patch Removal) 1 ea QHS MC 10/03/21 21:00 UNV Trazodone HCl (Desyrel) 25 mg PRN QHS PRN PO INSOMNIA, MAY REPEAT X1 10/03/21 19:45 Alprazolam (Xanax) 0.25 mg QHS PO 10/03/21 21:00 10/05/21 20:19 Aspirin (Aspirin Enteric Coated) 81 mg DAILY PO 10/04/21 09:00 10/05/21 08:25 Donepezil HCl (Aricept) 10 mg QHS PO 10/03/21 21:00 10/05/21 20:19 Lisinopril (Prinivil) 5 mg DAILY PO 10/04/21 09:00 10/05/21 08:26 Atorvastatin Calcium (Lipitor) 40 mg DAILY PO 10/04/21 09:00 10/05/21 15:26 DC 10/04/21 09:01 Celecoxib (CeleBREX) 200 mg DAILY PO 10/04/21 09:00 10/05/21 08:26 Lidocaine (Lidoderm) 1 patch DAILY TP 10/04/21 09:00 10/05/21 09:00 Multivitamins/ Calcium (Thera-M Plus) 1 tab DAILY PO 10/04/21 09:00 10/05/21 08:25 Miscellaneous (Lidoderm Patch Removal) 1 ea QHS MC 10/03/21 21:00 10/05/21 20:19 Sertraline HCl (Zoloft) 25 mg DAILY PO 10/05/21 09:00 10/07/21 10:00 10/05/21 08:25 Sertraline HCl (Zoloft) 50 mg DAILY PO 10/08/21 09:00 Atorvastatin Calcium (Lipitor) 40 mg HS PO 10/05/21 21:00 10/05/21 20:19 Current Medications Medications (Trade) Dose Ordered Sig/Mayito Route PRN Reason Start Time Stop Time Status Last Admin Dose Admin Sertraline HCl (Zoloft) 25 mg DAILY PO 10/05/21 09:00 10/07/21 10:00 10/05/21 08:25 Atorvastatin Calcium (Lipitor) 40 mg HS PO 10/05/21 21:00 10/05/21 20:19 I have reviewed the current psychotropics carefully including drug interactions. Risk benefit ratio favors no change other than as noted in my dictated progress note. Diagnosis: Problems: (1) Major depressive disorder, recurrent episode (2) Mild cognitive impairment (3) Anxiety disorder, unspecified NÉSTOR WONG MD Oct 06, 2021 07:17
[2021-10-06] MEDS: MULTIVITAMIN with MINERAL TABLET. PO SCH (10:40)
[2021-10-06] MEDS: SERTRALINE 25 MG TABLET. PO SCH (10:40)
[2021-10-06] MEDS: LISINOPRIL 5 MG TABLET. PO SCH (10:41)
[2021-10-06] MEDS: ASPIRIN ENTERIC COATED 81 MG TABLET.DR. PO SCH (10:41)
[2021-10-06] MEDS: CELECOXIB 100 MG CAPSULE PO SCH (10:41)
[2021-10-06] MEDS: LIDOCAINE (700MG/PATCH) PATCH. TP SCH (10:42)
--- NOTE | 2021-10-06 11:09 | NUR ---
WEEKLY ACTIVITY THERAPY NOTE Date of Admission: 10/03/21 Date of AT Assessment: TBD Precipitating behaviors that initiated intake and admission:paranoid, SI, wants to , sundowning, agitated Goal aimed: TBD Initial Goal: TBD Weekly progress towards goal: NA Group participation level: NA Weekly highlights: arrived on [facility] Behaviors observed: Plan: meet/assess pt Beneficial adaptations:
--- NOTE | 2021-10-06 11:45 | NUR ---
ACTIVITY THERAPY ASSESSMENT completed based on notes, observation and interview. Pt was laying in bed and was compliant with assessment questions. Pt was social and pleasant during the entire session. Pt was a bit fixated on wanting to go home. Pt spoke about her children and said that she has six kids and is . Pt reports that her first after 51 years of marriage. Pt has remarried sense that point. Pt reports that she enjoys traveling, coloring books and country music. Pt said they use to go dancing a lot. Pt was repetitive with her stories at times and didn't recall telling them a few minutes before. Pt was able to answer all orientation questions without error. Pt said she thought she was brought here for PT but her family really brought her here for memory problems. Pt again expressed that she was worried about her being at home alone. Pt said that she goes to doctors appointments with him and he is having heart troubles. Pt did not report that she was stressed but she is just worried about her . Pt remained very social and pleasant. Per notes pt is cooperative and pleasant with staff. Initial goal aimed to increase socialization and engagement. Pt will participate in at least three Activity Therapy sessions per week. Addendum: 10/20/21 at 1254 by LOULOU MARINELLI ACT Goal changed 10/20:Pt will participate in all Activity Therapy sessions offered
--- NOTE | 2021-10-06 14:41 | NUR ---
Initial treatment team: Pt zuleykar/DENNY, Jaylene, participated in treatment team via phone. Pt is eating roughly 50% of meals and sleeping on average 7 hours per night. Pt is very appropriate, medication compliant and has no major behavioral concerns. It was noted that last night pt did have a minor meltdown because she did not wish to shower at night but in the morning for fear she would catch pneumonia. SW noted that she did complain about it being very cold and how her nose continually dripped. Pt was compliant in taking a shower this morning and thankful towards staff. Pt did also refuse her Lipitor last night because she felt that her Cholesterol was just fine. Pt has been noted to have some short term memory deficits and SW will perform a SLUMS to further evaluate cognition. A head CT will also be completed if one has not already been done. Pt was started on Zoloft 25mg for three days then increase to 50mg; although pt is on Aricept, will consider having pt start on Namenda as well. Pt family will be looking for placement as pt is 88 and having heart trouble; he feels unable to continue to care for pt at this time. SW will continue to help the family in finding placement.
--- NOTE | 2021-10-06 15:00 | NUR ---
Nursing note: Pt is very pleasant, compliant with meds whole and cooperative with assessment. Pt states that her shoulder does not really hurt, it is just tender, but says scheduled lidocaine patch helps. Pt reports enjoying having someone to talk to and socialize with, but is currently resting quietly in her bed. Will continue to monitor.
[2021-10-06 15:39] VITALS: BP 145/73
--- NOTE | 2021-10-06 15:42 | RAD ---
CT Head without contrast 10/06/2021 3:15 PM Indication: Reason: baseline : Comparison: None Findings: No intracranial hemorrhage is seen. No evidence of acute territorial infarct is seen. Note that CT is limited in sensitivity for acute ischemia. Age-related atrophic changes are noted. Ther e is patchy periventricular and deep white matter hypoattenuation which is nonspecific, but most comm only relates to chronic small vessel disease. No abnormal extra axial fluid collection is identified . No mass effect or midline shift is seen. No acute osseous abnormalities are seen. Impression: 1. No acute intracranial process identified 2. Age-related atrophy, and evidence of chronic small vessel disease as described CT DOSING PQRS STATEMENT: One or more of the following individualized dose reduction techniques were utilized for this examinat ion: 1. Automated exposure control 2. Adjustment of the mA and/or kV according to patient size 3. Use of iterative reconstruction technique Electronically signed by: Deep Aggarwal MD (10/06/2021 3:40 PM) [id number]
[2021-10-06] MEDS: PATCH REMOVAL. MC SCH (21:00)
[2021-10-06] MEDS: ALPRAZolam 0.25 MG TABLET PO SCH (21:02)
[2021-10-06] MEDS: DONEPEZIL HCL 10 MG TABLET PO SCH (21:02)
[2021-10-06] MEDS: ATORVASTATIN CALCIUM 20 MG TABLET PO SCH (21:05)
--- NOTE | 2021-10-06 21:23 | PDOC ---
Exam Note: Rip Note: Please also refer to the separate dictated note~for this date of service dictated separately.~Patient seen individually. Discussed the patient with Nursing staff reviewed the chart.~Reviewed interim history and current functioning. Reviewed vital signs,~Labs/ Radiology~and current medications noted below. Continue current treatment with the changes noted in the dictated addendum note Assessment: Vital Signs/I&O: Vital Signs Date Time Temp Pulse Resp B/P (MAP) Pulse Ox O2 Delivery O2 Flow Rate FiO2 10/06/21 15:39 98.3 81 20 145/73 (97) 95 I & O 10/05/21 10/05/21 10/06/21 15:00 23:00 07:00 Intake Total 840 ml 120 ml Balance 840 ml 120 ml Current Medications: Meds: Current Medications Medications (Trade) Dose Ordered Sig/Mayito Route PRN Reason Start Time Stop Time Status Last Admin Dose Admin Acetaminophen (Tylenol) 650 mg PRN Q6HRS PRN PO MILD PAIN / TEMP > 100.3'F 10/03/21 17:00 Multi-Ingredient Ointment (Analgesic [place]) 1 claudia PRN QID PRN TP MUSCLE PAIN 10/03/21 17:00 Al Hydroxide/Mg Hydroxide (Mylanta Plus Xs) 15 ml PRN AFTMEALHC PRN PO DYSPEPSIA 10/03/21 17:00 Magnesium Hydroxide (Milk Of Magnesia) 2,400 mg PRN QHS PRN PO CONSTIPATION 10/03/21 17:00 Celecoxib (CeleBREX) 200 mg DAILY PO 10/04/21 09:00 UNV Aspirin (Aspirin Chewable) 81 mg DAILYWBKFT PO 10/04/21 08:00 UNV Alprazolam (Xanax) 0.25 mg QHS ONCE PO 10/03/21 21:00 10/03/21 21:01 UNV Atorvastatin Calcium (Lipitor) 40 mg DAILY PO 10/04/21 09:00 UNV Lisinopril (Prinivil) 5 mg DAILY PO 10/04/21 09:00 UNV Donepezil HCl (Aricept) 10 mg QHS PO 10/03/21 21:00 UNV Lidocaine (Lidoderm) 1 patch DAILY TD 10/04/21 09:00 UNV Miscellaneous (Lidoderm Patch Removal) 1 ea QHS MC 10/03/21 21:00 UNV Trazodone HCl (Desyrel) 25 mg PRN QHS PRN PO INSOMNIA, MAY REPEAT X1 10/03/21 19:45 Alprazolam (Xanax) 0.25 mg QHS PO 10/03/21 21:00 10/06/21 21:02 Aspirin (Aspirin Enteric Coated) 81 mg DAILY PO 10/04/21 09:00 10/06/21 10:41 Donepezil HCl (Aricept) 10 mg QHS PO 10/03/21 21:00 10/06/21 21:02 Lisinopril (Prinivil) 5 mg DAILY PO 10/04/21 09:00 10/06/21 10:41 Atorvastatin Calcium (Lipitor) 40 mg DAILY PO 10/04/21 09:00 10/05/21 15:26 DC 10/04/21 09:01 Celecoxib (CeleBREX) 200 mg DAILY PO 10/04/21 09:00 10/06/21 10:41 Lidocaine (Lidoderm) 1 patch DAILY TP 10/04/21 09:00 10/06/21 10:42 Multivitamins/ Calcium (Thera-M Plus) 1 tab DAILY PO 10/04/21 09:00 10/06/21 10:40 Miscellaneous (Lidoderm Patch Removal) 1 ea QHS 10/03/21 21:00 10/06/21 21:00 Sertraline HCl (Zoloft) 25 mg DAILY PO 10/05/21 09:00 10/07/21 10:00 10/06/21 10:40 Sertraline HCl (Zoloft) 50 mg DAILY PO 10/08/21 09:00 Atorvastatin Calcium (Lipitor) 40 mg HS PO 10/05/21 21:00 10/06/21 21:05 I have reviewed the current psychotropics carefully including drug interactions. Risk benefit ratio favors no change other than as noted in my dictated progress note. Diagnosis: Problems: (1) Major depressive disorder, recurrent episode (2) Mild cognitive impairment (3) Anxiety disorder, unspecified NÉSTOR WONG MD Oct 06, 2021 21:23
--- NOTE | 2021-10-07 05:49 | NUR ---
Nursing Note The patient was located in her room for her assessment and medication pass. The patient was calm and cooperative and took her medication whole. The patient was alert to name, date and location. The patient is currently laying in bed awake.
[2021-10-07 06:16] VITALS: BP 132/69
[2021-10-07] MEDS: ASPIRIN ENTERIC COATED 81 MG TABLET.DR. PO SCH (09:08)
[2021-10-07] MEDS: MULTIVITAMIN with MINERAL TABLET. PO SCH (09:08)
[2021-10-07] MEDS: LISINOPRIL 5 MG TABLET. PO SCH (09:08)
[2021-10-07] MEDS: CELECOXIB 100 MG CAPSULE PO SCH (09:08)
[2021-10-07] MEDS: SERTRALINE 25 MG TABLET. PO SCH (09:09)
[2021-10-07] MEDS: LIDOCAINE (700MG/PATCH) PATCH. TP SCH (09:09)
[2021-10-07 15:22] VITALS: BP 146/78
--- NOTE | 2021-10-07 20:27 | PDOC ---
Exam Note: Rip Note: Please also refer to the separate dictated note~for this date of service dictated separately.~Patient seen individually. Discussed the patient with Nursing staff reviewed the chart.~Reviewed interim history and current functioning. Reviewed vital signs,~Labs/ Radiology~and current medications noted below. Continue current treatment with the changes noted in the dictated addendum note Assessment: Vital Signs/I&O: Vital Signs Date Time Temp Pulse Resp B/P (MAP) Pulse Ox O2 Delivery O2 Flow Rate FiO2 10/07/21 15:22 98.2 76 18 146/78 (100) 96 I & O 10/06/21 10/06/21 10/07/21 15:00 23:00 07:00 Intake Total 500 ml 480 ml Balance 500 ml 480 ml Labs: Laboratory Tests Test 10/07/21 06:00 SARS-CoV-2 (PCR) Not detected (NOT DETECTD) Current Medications: Meds: Laboratory Tests Test 10/07/21 06:00 Coronavirus (COVID-19)(PCR) Not detected Current Medications Medications (Trade) Dose Ordered Sig/Mayito Route PRN Reason Start Time Stop Time Status Last Admin Dose Admin Acetaminophen (Tylenol) 650 mg PRN Q6HRS PRN PO MILD PAIN / TEMP > 100.3'F 10/03/21 17:00 Multi-Ingredient Ointment (Analgesic [place]) 1 claudia PRN QID PRN TP MUSCLE PAIN 10/03/21 17:00 Al Hydroxide/Mg Hydroxide (Mylanta Plus Xs) 15 ml PRN AFTMEALHC PRN PO DYSPEPSIA 10/03/21 17:00 Magnesium Hydroxide (Milk Of Magnesia) 2,400 mg PRN QHS PRN PO CONSTIPATION 10/03/21 17:00 Celecoxib (CeleBREX) 200 mg DAILY PO 10/04/21 09:00 UNV Aspirin (Aspirin Chewable) 81 mg DAILYWBKFT PO 10/04/21 08:00 UNV Alprazolam (Xanax) 0.25 mg QHS ONCE PO 10/03/21 21:00 10/03/21 21:01 UNV Atorvastatin Calcium (Lipitor) 40 mg DAILY PO 10/04/21 09:00 UNV Lisinopril (Prinivil) 5 mg DAILY PO 10/04/21 09:00 UNV Donepezil HCl (Aricept) 10 mg QHS PO 10/03/21 21:00 UNV Lidocaine (Lidoderm) 1 patch DAILY TD 10/04/21 09:00 UNV Miscellaneous (Lidoderm Patch Removal) 1 ea QHS MC 10/03/21 21:00 UNV Trazodone HCl (Desyrel) 25 mg PRN QHS PRN PO INSOMNIA, MAY REPEAT X1 10/03/21 19:45 Alprazolam (Xanax) 0.25 mg QHS PO 10/03/21 21:00 10/06/21 21:02 Aspirin (Aspirin Enteric Coated) 81 mg DAILY PO 10/04/21 09:00 10/07/21 09:08 Donepezil HCl (Aricept) 10 mg QHS PO 10/03/21 21:00 10/06/21 21:02 Lisinopril (Prinivil) 5 mg DAILY PO 10/04/21 09:00 10/07/21 09:08 Atorvastatin Calcium (Lipitor) 40 mg DAILY PO 10/04/21 09:00 10/05/21 15:26 DC 10/04/21 09:01 Celecoxib (CeleBREX) 200 mg DAILY PO 10/04/21 09:00 10/07/21 09:08 Lidocaine (Lidoderm) 1 patch DAILY TP 10/04/21 09:00 10/07/21 09:09 Multivitamins/ Calcium (Thera-M Plus) 1 tab DAILY PO 10/04/21 09:00 10/07/21 09:08 Miscellaneous (Lidoderm Patch Removal) 1 ea QHS MC 10/03/21 21:00 10/06/21 21:00 Sertraline HCl (Zoloft) 25 mg DAILY PO 10/05/21 09:00 10/07/21 10:00 DC 10/07/21 09:09 Sertraline HCl (Zoloft) 50 mg DAILY PO 10/08/21 09:00 Atorvastatin Calcium (Lipitor) 40 mg HS PO 10/05/21 21:00 10/06/21 21:05 I have reviewed the current psychotropics carefully including drug interactions. Risk benefit ratio favors no change other than as noted in my dictated progress note. Diagnosis: Problems: (1) Major depressive disorder, recurrent episode (2) Mild cognitive impairment (3) Anxiety disorder, unspecified NÉSTOR WONG MD Oct 07, 2021 20:27
[2021-10-07] MEDS: PATCH REMOVAL. MC SCH (21:00)
[2021-10-07] MEDS: ALPRAZolam 0.25 MG TABLET PO SCH (21:10)
[2021-10-07] MEDS: ATORVASTATIN CALCIUM 20 MG TABLET PO SCH (21:10)
[2021-10-07] MEDS: DONEPEZIL HCL 10 MG TABLET PO SCH (21:10)
--- NOTE | 2021-10-07 23:00 | NUR ---
Patient is located in her room on assumption of care, awake in bed. She is alert and oriented x4. She denies any current feelings of SI. She stated that she is depressed and anxious, worrying about her sick . States "He has an enlarged heart, I take care of him at home. Who will take care of him with me being in the hospital?" This nurse reassured patient that her family was most likely taking care of him in her absence. She went on to elaborate "He's my second , my kids aren't his kids. We've only been about 4 years. His daughter doesn't like me, she's been trying to convince him to divorce me." This nurse encouraged patient to try not to perseverate on things that are out of her control at this moment. She agreed, stating "Well, whatever happens, happens. I just want to get better so I can get out of here and take care of my ." She was compliant with assessments and took her medications whole. She denies any pain or discomfort so far this shift. Patient appears to be sleeping comfortably at present time. Will continue to monitor.
--- NOTE | 2021-10-08 07:09 | PDOC ---
Exam Note: Rip Note: This note is a late entry for 10/06/2021 covers elements not covered in my initial note. Subjective: The patient was reviewed at treatment team meeting individually in the morning on 10/06/2021 with Allyson Robb, Eli Cook, and Katia Jesus (social services director), Sury, activity therapy, and Melly HINKLE, discussed and reviewed the chart. The patient slept 5-1/2 hours previous night. Her daughter Justina also attended the treatment team meeting. She had some short-term memory deficits with worsening depression, anger and irritability. We reviewed her history. At one point she won over $1 million in a lottery and she distributed some of it to her family. Previous evening she became extremely agitated, refusing her shower and daughter explained that the patient always feels very cold and not accepting shower in the evening. She did take one this morning. Refused Lipitor at night. We will check CT head if not done recently. Review of Systems: No CV, , pulmonary, eye, ENT system symptoms on review. She does complain of feeling cold. Mental Status Exam: The patient is oriented to herself and situation. Speech is coherent has some latency. Abstraction fair. Computation impaired. Language function intact. Mood and affect still depressed, anxious which she minimizes. Laboratory Data: Reviewed. Impression: Major depressive disorder, recurrent, rule out psychotic features. Mild cognitive impairment. Anxiety disorder unspecified. Plan: Continue current psychotropics. Make further adjustments as clinically indicated. Assessment: Vital Signs/I&O: Vital Signs Date Time Temp Pulse Resp B/P (MAP) Pulse Ox O2 Delivery O2 Flow Rate FiO2 10/07/21 15:22 98.2 76 18 146/78 (100) 96 I & O 10/07/21 10/07/21 10/08/21 15:00 23:00 07:00 Intake Total 360 ml 360 ml Balance 360 ml 360 ml Current Medications: Meds: Current Medications Medications (Trade) Dose Ordered Sig/Mayito Route PRN Reason Start Time Stop Time Status Last Admin Dose Admin Acetaminophen (Tylenol) 650 mg PRN Q6HRS PRN PO MILD PAIN / TEMP > 100.3'F 10/03/21 17:00 Multi-Ingredient Ointment (Analgesic [place]) 1 claudia PRN QID PRN TP MUSCLE PAIN 10/03/21 17:00 Al Hydroxide/Mg Hydroxide (Mylanta Plus Xs) 15 ml PRN AFTMEALHC PRN PO DYSPEPSIA 10/03/21 17:00 Magnesium Hydroxide (Milk Of Magnesia) 2,400 mg PRN QHS PRN PO CONSTIPATION 10/03/21 17:00 Celecoxib (CeleBREX) 200 mg DAILY PO 10/04/21 09:00 UNV Aspirin (Aspirin Chewable) 81 mg DAILYWBKFT PO 10/04/21 08:00 UNV Alprazolam (Xanax) 0.25 mg QHS ONCE PO 10/03/21 21:00 10/03/21 21:01 UNV Atorvastatin Calcium (Lipitor) 40 mg DAILY PO 10/04/21 09:00 UNV Lisinopril (Prinivil) 5 mg DAILY PO 10/04/21 09:00 UNV Donepezil HCl (Aricept) 10 mg QHS PO 10/03/21 21:00 UNV Lidocaine (Lidoderm) 1 patch DAILY TD 10/04/21 09:00 UNV Miscellaneous (Lidoderm Patch Removal) 1 ea QHS MC 10/03/21 21:00 UNV Trazodone HCl (Desyrel) 25 mg PRN QHS PRN PO INSOMNIA, MAY REPEAT X1 10/03/21 19:45 Alprazolam (Xanax) 0.25 mg QHS PO 10/03/21 21:00 10/07/21 21:10 Aspirin (Aspirin Enteric Coated) 81 mg DAILY PO 10/04/21 09:00 10/07/21 09:08 Donepezil HCl (Aricept) 10 mg QHS PO 10/03/21 21:00 10/07/21 21:10 Lisinopril (Prinivil) 5 mg DAILY PO 10/04/21 09:00 10/07/21 09:08 Atorvastatin Calcium (Lipitor) 40 mg DAILY PO 10/04/21 09:00 10/05/21 15:26 DC 10/04/21 09:01 Celecoxib (CeleBREX) 200 mg DAILY PO 10/04/21 09:00 10/07/21 09:08 Lidocaine (Lidoderm) 1 patch DAILY TP 10/04/21 09:00 10/07/21 09:09 Multivitamins/ Calcium (Thera-M Plus) 1 tab DAILY PO 10/04/21 09:00 10/07/21 09:08 Miscellaneous (Lidoderm Patch Removal) 1 ea QHS 10/03/21 21:00 10/07/21 21:00 Sertraline HCl (Zoloft) 25 mg DAILY PO 10/05/21 09:00 10/07/21 10:00 DC 10/07/21 09:09 Sertraline HCl (Zoloft) 50 mg DAILY PO 10/08/21 09:00 Atorvastatin Calcium (Lipitor) 40 mg HS PO 10/05/21 21:00 10/07/21 21:10 I have reviewed the current psychotropics carefully including drug interactions. Risk benefit ratio favors no change other than as noted in my dictated progress note. Diagnosis: Problems: (1) Major depressive disorder, recurrent episode (2) Mild cognitive impairment (3) Anxiety disorder, unspecified NÉSTOR WONG MD Oct 08, 2021 07:09
[2021-10-08 07:22] VITALS: BP 117/57
--- NOTE | 2021-10-08 07:22 | PDOC ---
Exam Note: Rip Note: This note is a late entry for 10/07/2021 covers elements not covered in my initial note. Subjective: The patient was seen individually in the evening of 10/07/2021 with Lazara HINKLE, discussed and reviewed the chart. The patient slept 8-1/4 hours previous night. She has been isolative, withdrawn, needs much encouragement to come out Review of Systems: Ambulation impaired with walker. No CV, , pulmonary, eye, ENT system symptoms on review. Mental Status Exam: The patient is oriented to herself and situation. Speech is coherent, has some latency. Abstraction fair. Computation impaired. She minimizes any problems prompting admission. No suicidal ideation. Laboratory Data: Reviewed. Impression: Major depressive disorder, recurrent, rule out psychotic features. Mild cognitive impairment. Anxiety disorder unspecified. Plan: Continue current psychotropics. Assessment: Vital Signs/I&O: Vital Signs Date Time Temp Pulse Resp B/P (MAP) Pulse Ox O2 Delivery O2 Flow Rate FiO2 10/07/21 15:22 98.2 76 18 146/78 (100) 96 I & O 10/07/21 10/07/21 10/08/21 15:00 23:00 07:00 Intake Total 360 ml 360 ml Balance 360 ml 360 ml Current Medications: Meds: Current Medications Medications (Trade) Dose Ordered Sig/Mayito Route PRN Reason Start Time Stop Time Status Last Admin Dose Admin Acetaminophen (Tylenol) 650 mg PRN Q6HRS PRN PO MILD PAIN / TEMP > 100.3'F 10/03/21 17:00 Multi-Ingredient Ointment (Analgesic [place]) 1 claudia PRN QID PRN TP MUSCLE PAIN 10/03/21 17:00 Al Hydroxide/Mg Hydroxide (Mylanta Plus Xs) 15 ml PRN AFTMEALHC PRN PO DYSPEPSIA 10/03/21 17:00 Magnesium Hydroxide (Milk Of Magnesia) 2,400 mg PRN QHS PRN PO CONSTIPATION 10/03/21 17:00 Celecoxib (CeleBREX) 200 mg DAILY PO 10/04/21 09:00 UNV Aspirin (Aspirin Chewable) 81 mg DAILYWBKFT PO 10/04/21 08:00 UNV Alprazolam (Xanax) 0.25 mg QHS ONCE PO 10/03/21 21:00 10/03/21 21:01 UNV Atorvastatin Calcium (Lipitor) 40 mg DAILY PO 10/04/21 09:00 UNV Lisinopril (Prinivil) 5 mg DAILY PO 10/04/21 09:00 UNV Donepezil HCl (Aricept) 10 mg QHS PO 10/03/21 21:00 UNV Lidocaine (Lidoderm) 1 patch DAILY TD 10/04/21 09:00 UNV Miscellaneous (Lidoderm Patch Removal) 1 ea QHS MC 10/03/21 21:00 UNV Trazodone HCl (Desyrel) 25 mg PRN QHS PRN PO INSOMNIA, MAY REPEAT X1 10/03/21 19:45 Alprazolam (Xanax) 0.25 mg QHS PO 10/03/21 21:00 10/07/21 21:10 Aspirin (Aspirin Enteric Coated) 81 mg DAILY PO 10/04/21 09:00 10/07/21 09:08 Donepezil HCl (Aricept) 10 mg QHS PO 10/03/21 21:00 10/07/21 21:10 Lisinopril (Prinivil) 5 mg DAILY PO 10/04/21 09:00 10/07/21 09:08 Atorvastatin Calcium (Lipitor) 40 mg DAILY PO 10/04/21 09:00 10/05/21 15:26 DC 10/04/21 09:01 Celecoxib (CeleBREX) 200 mg DAILY PO 10/04/21 09:00 10/07/21 09:08 Lidocaine (Lidoderm) 1 patch DAILY TP 10/04/21 09:00 10/07/21 09:09 Multivitamins/ Calcium (Thera-M Plus) 1 tab DAILY PO 10/04/21 09:00 10/07/21 09:08 Miscellaneous (Lidoderm Patch Removal) 1 ea QHS MC 10/03/21 21:00 10/07/21 21:00 Sertraline HCl (Zoloft) 25 mg DAILY PO 10/05/21 09:00 10/07/21 10:00 DC 10/07/21 09:09 Sertraline HCl (Zoloft) 50 mg DAILY PO 10/08/21 09:00 Atorvastatin Calcium (Lipitor) 40 mg HS PO 10/05/21 21:00 10/07/21 21:10 I have reviewed the current psychotropics carefully including drug interactions. Risk benefit ratio favors no change other than as noted in my dictated progress note. Diagnosis: Problems: (1) Major depressive disorder, recurrent episode (2) Mild cognitive impairment (3) Anxiety disorder, unspecified NÉSTOR WONG MD Oct 08, 2021 07:22
[2021-10-08] MEDS: LISINOPRIL 5 MG TABLET. PO SCH (09:14)
[2021-10-08] MEDS: MULTIVITAMIN with MINERAL TABLET. PO SCH (09:14)
[2021-10-08] MEDS: ASPIRIN ENTERIC COATED 81 MG TABLET.DR. PO SCH (09:14)
[2021-10-08] MEDS: CELECOXIB 100 MG CAPSULE PO SCH (09:14)
[2021-10-08] MEDS: LIDOCAINE (700MG/PATCH) PATCH. TP SCH (09:15)
[2021-10-08] MEDS: SERTRALINE 50 MG TABLET. PO SCH (09:16)
[2021-10-08 15:14] VITALS: BP 123/76
--- NOTE | 2021-10-08 16:13 | NUR ---
Nursing note: Pt is very pleasant, compliant with meds whole and cooperative with assessment. Pt reports that her depression is much better this AM and says that she can smile all day long now, as she has a big grin on her face. Pt was cooperative with her shower but did not wish to wash her hair today as she was already cold. Pt accepted a warm blanket as soon as she got out of her shower and was very grateful. She is currently sitting in the wang socializing with other pt's. Will continue to monitor.
--- NOTE | 2021-10-08 20:53 | PDOC ---
Exam Note: Rip Note: Please also refer to the separate dictated note~for this date of service dictated separately.~Patient seen individually. Discussed the patient with Nursing staff reviewed the chart.~Reviewed interim history and current functioning. Reviewed vital signs,~Labs/ Radiology~and current medications noted below. Continue current treatment with the changes noted in the dictated addendum note Assessment: Vital Signs/I&O: Vital Signs Date Time Temp Pulse Resp B/P (MAP) Pulse Ox O2 Delivery O2 Flow Rate FiO2 10/08/21 15:14 97.4 75 17 123/76 (92) 96 I & O 10/07/21 10/07/21 10/08/21 15:00 23:00 07:00 Intake Total 360 ml 360 ml Balance 360 ml 360 ml Current Medications: Meds: Current Medications Medications (Trade) Dose Ordered Sig/Mayito Route PRN Reason Start Time Stop Time Status Last Admin Dose Admin Acetaminophen (Tylenol) 650 mg PRN Q6HRS PRN PO MILD PAIN / TEMP > 100.3'F 10/03/21 17:00 Multi-Ingredient Ointment (Analgesic [place]) 1 claudia PRN QID PRN TP MUSCLE PAIN 10/03/21 17:00 Al Hydroxide/Mg Hydroxide (Mylanta Plus Xs) 15 ml PRN AFTMEALHC PRN PO DYSPEPSIA 10/03/21 17:00 Magnesium Hydroxide (Milk Of Magnesia) 2,400 mg PRN QHS PRN PO CONSTIPATION 10/03/21 17:00 Celecoxib (CeleBREX) 200 mg DAILY PO 10/04/21 09:00 UNV Aspirin (Aspirin Chewable) 81 mg DAILYWBKFT PO 10/04/21 08:00 UNV Alprazolam (Xanax) 0.25 mg QHS ONCE PO 10/03/21 21:00 10/03/21 21:01 UNV Atorvastatin Calcium (Lipitor) 40 mg DAILY PO 10/04/21 09:00 UNV Lisinopril (Prinivil) 5 mg DAILY PO 10/04/21 09:00 UNV Donepezil HCl (Aricept) 10 mg QHS PO 10/03/21 21:00 UNV Lidocaine (Lidoderm) 1 patch DAILY TD 10/04/21 09:00 UNV Miscellaneous (Lidoderm Patch Removal) 1 ea QHS MC 10/03/21 21:00 UNV Trazodone HCl (Desyrel) 25 mg PRN QHS PRN PO INSOMNIA, MAY REPEAT X1 10/03/21 19:45 Alprazolam (Xanax) 0.25 mg QHS PO 10/03/21 21:00 10/07/21 21:10 Aspirin (Aspirin Enteric Coated) 81 mg DAILY PO 10/04/21 09:00 10/08/21 09:14 Donepezil HCl (Aricept) 10 mg QHS PO 10/03/21 21:00 10/07/21 21:10 Lisinopril (Prinivil) 5 mg DAILY PO 10/04/21 09:00 10/08/21 09:14 Atorvastatin Calcium (Lipitor) 40 mg DAILY PO 10/04/21 09:00 10/05/21 15:26 NV 10/04/21 09:01 Celecoxib (CeleBREX) 200 mg DAILY PO 10/04/21 09:00 10/08/21 09:14 Lidocaine (Lidoderm) 1 patch DAILY TP 10/04/21 09:00 10/08/21 09:15 Multivitamins/ Calcium (Thera-M Plus) 1 tab DAILY PO 10/04/21 09:00 10/08/21 09:14 Miscellaneous (Lidoderm Patch Removal) 1 ea QHS 10/03/21 21:00 10/07/21 21:00 Sertraline HCl (Zoloft) 25 mg DAILY PO 10/05/21 09:00 10/07/21 10:00 NV 10/07/21 09:09 Sertraline HCl (Zoloft) 50 mg DAILY PO 10/08/21 09:00 10/08/21 09:16 Atorvastatin Calcium (Lipitor) 40 mg HS PO 10/05/21 21:00 10/07/21 21:10 Current Medications Medications (Trade) Dose Ordered Sig/Mayito Route PRN Reason Start Time Stop Time Status Last Admin Dose Admin Sertraline HCl (Zoloft) 50 mg DAILY PO 10/08/21 09:00 10/08/21 09:16 I have reviewed the current psychotropics carefully including drug interactions. Risk benefit ratio favors no change other than as noted in my dictated progress note. Diagnosis: Problems: (1) Major depressive disorder, recurrent episode (2) Mild cognitive impairment (3) Anxiety disorder, unspecified MARVIN,MAN M MD Oct 08, 2021 20:53
[2021-10-08] MEDS: PATCH REMOVAL. MC SCH (21:00)
[2021-10-08] MEDS: ATORVASTATIN CALCIUM 20 MG TABLET PO SCH (21:27)
[2021-10-08] MEDS: DONEPEZIL HCL 10 MG TABLET PO SCH (21:27)
[2021-10-08] MEDS: ALPRAZolam 0.25 MG TABLET PO SCH (21:28)
[2021-10-08] MEDS: ACETAMINOPHEN 325 MG TABLET PO PRN (21:28)
--- NOTE | 2021-10-08 23:00 | NUR ---
Patient is located in her room on assumption of care, awake in bed. She is alert and oriented x4. States that she feels much less depressed and denies any current feelings of SI. She was compliant with assessments and took her medications whole. She denies any pain or discomfort so far this shift. Patient appears to be sleeping comfortably at present time. Will continue to monitor.
[2021-10-09 05:44] VITALS: BP 123/64
[2021-10-09] MEDS: ASPIRIN ENTERIC COATED 81 MG TABLET.DR. PO SCH (08:29)
[2021-10-09] MEDS: LISINOPRIL 5 MG TABLET. PO SCH (08:30)
[2021-10-09] MEDS: MULTIVITAMIN with MINERAL TABLET. PO SCH (08:30)
[2021-10-09] MEDS: CELECOXIB 100 MG CAPSULE PO SCH (08:30)
[2021-10-09] MEDS: LIDOCAINE (700MG/PATCH) PATCH. TP SCH (08:30)
[2021-10-09] MEDS: SERTRALINE 50 MG TABLET. PO SCH (08:30)
--- NOTE | 2021-10-09 15:09 | NUR ---
Nursing note: Patient is in hallway for morning medication & assessment. She is compliant with medications taken whole. She is alert and oriented x 4, she needed reminders for situation. She ambulates independently with walker, can be unstable at times. She denies any SI at this time. Patient denies pain/discomfort. She can be forgetful, anxious, & hyperverbal. She walked in the hallway several times through the day. She is currently resting in bed with eyes closed. Will continue to monitor.
[2021-10-09 15:44] VITALS: BP 149/76
[2021-10-09] MEDS ORDERED: LIDOCAINE (700MG/PATCH) PATCH. TP PRN (16:00)
[2021-10-09] MEDS: ACETAMINOPHEN 325 MG TABLET PO PRN (17:01)
[2021-10-09] MEDS: PATCH REMOVAL. MC SCH (19:20)
[2021-10-09] MEDS: DONEPEZIL HCL 10 MG TABLET PO SCH (20:01)
[2021-10-09] MEDS: ALPRAZolam 0.25 MG TABLET PO SCH (20:01)
[2021-10-09] MEDS: ATORVASTATIN CALCIUM 20 MG TABLET PO SCH (20:01)
--- NOTE | 2021-10-09 20:40 | PDOC ---
Exam Note: Rip Note: Please also refer to the separate dictated note~for this date of service dictated separately.~Patient seen individually. Discussed the patient with Nursing staff reviewed the chart.~Reviewed interim history and current functioning. Reviewed vital signs,~Labs/ Radiology~and current medications noted below. Continue current treatment with the changes noted in the dictated addendum note Assessment: Vital Signs/I&O: Vital Signs Date Time Temp Pulse Resp B/P (MAP) Pulse Ox O2 Delivery O2 Flow Rate FiO2 10/09/21 15:44 98.5 67 16 149/76 (100) 98 I & O 10/08/21 10/08/21 10/09/21 15:00 23:00 07:00 Intake Total 720 ml 640 ml Balance 720 ml 640 ml Current Medications: Meds: Current Medications Medications (Trade) Dose Ordered Sig/Mayito Route PRN Reason Start Time Stop Time Status Last Admin Dose Admin Acetaminophen (Tylenol) 650 mg PRN Q6HRS PRN PO MILD PAIN / TEMP > 100.3'F 10/03/21 17:00 10/09/21 17:01 Multi-Ingredient Ointment (Analgesic [place]) 1 claudia PRN QID PRN TP MUSCLE PAIN 10/03/21 17:00 Al Hydroxide/Mg Hydroxide (Mylanta Plus Xs) 15 ml PRN AFTMEALHC PRN PO DYSPEPSIA 10/03/21 17:00 Magnesium Hydroxide (Milk Of Magnesia) 2,400 mg PRN QHS PRN PO CONSTIPATION 10/03/21 17:00 10/08/21 21:28 Celecoxib (CeleBREX) 200 mg DAILY PO 10/04/21 09:00 UNV Aspirin (Aspirin Chewable) 81 mg DAILYWBKFT PO 10/04/21 08:00 UNV Alprazolam (Xanax) 0.25 mg QHS ONCE PO 10/03/21 21:00 10/03/21 21:01 UNV Atorvastatin Calcium (Lipitor) 40 mg DAILY PO 10/04/21 09:00 UNV Lisinopril (Prinivil) 5 mg DAILY PO 10/04/21 09:00 UNV Donepezil HCl (Aricept) 10 mg QHS PO 10/03/21 21:00 UNV Lidocaine (Lidoderm) 1 patch DAILY TD 10/04/21 09:00 UNV Miscellaneous (Lidoderm Patch Removal) 1 ea QHS MC 10/03/21 21:00 UNV Trazodone HCl (Desyrel) 25 mg PRN QHS PRN PO INSOMNIA, MAY REPEAT X1 10/03/21 19:45 Alprazolam (Xanax) 0.25 mg QHS PO 10/03/21 21:00 10/09/21 20:01 Aspirin (Aspirin Enteric Coated) 81 mg DAILY PO 10/04/21 09:00 10/09/21 08:29 Donepezil HCl (Aricept) 10 mg QHS PO 10/03/21 21:00 10/09/21 20:01 Lisinopril (Prinivil) 5 mg DAILY PO 10/04/21 09:00 10/09/21 08:30 Atorvastatin Calcium (Lipitor) 40 mg DAILY PO 10/04/21 09:00 10/05/21 15:26 DC 10/04/21 09:01 Celecoxib (CeleBREX) 200 mg DAILY PO 10/04/21 09:00 10/09/21 08:30 Lidocaine (Lidoderm) 1 patch DAILY TP 10/04/21 09:00 10/09/21 15:44 DC 10/08/21 09:15 Multivitamins/ Calcium (Thera-M Plus) 1 tab DAILY PO 10/04/21 09:00 10/09/21 08:30 Miscellaneous (Lidoderm Patch Removal) 1 ea QHS 10/03/21 21:00 10/08/21 21:00 Sertraline HCl (Zoloft) 25 mg DAILY PO 10/05/21 09:00 10/07/21 10:00 DC 10/07/21 09:09 Sertraline HCl (Zoloft) 50 mg DAILY PO 10/08/21 09:00 10/09/21 08:30 Atorvastatin Calcium (Lipitor) 40 mg HS PO 10/05/21 21:00 10/09/21 20:01 Lidocaine (Lidoderm) 1 patch PRN DAILY PRN TP PAIN 10/09/21 16:00 I have reviewed the current psychotropics carefully including drug interactions. Risk benefit ratio favors no change other than as noted in my dictated progress note. Diagnosis: Problems: (1) Major depressive disorder, recurrent episode (2) Mild cognitive impairment (3) Anxiety disorder, unspecified NÉSTOR WONG MD Oct 09, 2021 20:40
[2021-10-10 06:00] VITALS: BP 119/69
[2021-10-10 06:13] LABS: BASO % 1 % (0-3); EOS # 0.1 x10^3/uL (0.0-0.7); EOS % 2 % (0-3); HEMATOCRIT 36.4 % (36.0-47.0); HEMOGLOBIN 12.3 g/dL (12.0-15.5); LYMPH # 1.6 x10^3/uL (1.0-4.8); LYMPH % 18 % (24-48); MEAN CORPUSCULAR HEMOGLOBIN 31 pg (25-35); MEAN CORPUSCULAR HGB CONC 34 g/dL (31-37); MEAN CORPUSCULAR VOLUME 93 fL (79-100); MONO # 0.8 x10^3/uL (0.0-1.1); MONO % 10 % (0-9); NEUT % 70 % (31-73); PLATELET COUNT 181 x10^3/uL (140-400); RED BLOOD COUNT 3.91 x10^6/uL (3.50-5.40); WHITE BLOOD COUNT 8.6 x10^3/uL (4.0-11.0)
[2021-10-10 06:30] LABS: ALBUMIN 3.3 g/dL (3.4-5.0); ALBUMIN/GLOBULIN RATIO 0.9 (1.0-1.7); CALCIUM 8.6 mg/dL (8.5-10.1); CREATININE 0.8 mg/dL (0.6-1.0); GFR 68.5; POTASSIUM 4.2 mmol/L (3.5-5.1); TOTAL BILIRUBIN 0.6 mg/dL (0.2-1.0); TOTAL PROTEIN 6.8 g/dL (6.4-8.2)
--- NOTE | 2021-10-10 08:15 | PDOC ---
Exam Note: Rip Note: This note is an addendum and corrects the initial entry of 10/07/2021. The patient was reviewed on rounds. Discussed with nursing staff, reviewed the chart. Rest of the elements dictated for DOS 10/07/2021 remain unchanged as originally dictated. Assessment: Vital Signs/I&O: Vital Signs Date Time Temp Pulse Resp B/P (MAP) Pulse Ox O2 Delivery O2 Flow Rate FiO2 10/10/21 06:00 97.9 75 18 119/69 (86) 95 I & O 10/09/21 10/09/21 10/10/21 15:00 23:00 07:00 Intake Total 480 ml 240 ml Balance 480 ml 240 ml Labs: Laboratory Tests Test 10/10/21 06:00 White Blood Count 8.6 x10^3/uL (4.0-11.0) Red Blood Count 3.91 x10^6/uL (3.50-5.40) Hemoglobin 12.3 g/dL (12.0-15.5) Hematocrit 36.4 % (36.0-47.0) Mean Corpuscular Volume 93 fL (79-100) Mean Corpuscular Hemoglobin 31 pg (25-35) Mean Corpuscular Hemoglobin Concent 34 g/dL (31-37) Red Cell Distribution Width 14.0 % (11.5-14.5) Platelet Count 181 x10^3/uL (140-400) Neutrophils (%) (Auto) 70 % (31-73) Lymphocytes (%) (Auto) 18 % (24-48) L Monocytes (%) (Auto) 10 % (0-9) H Eosinophils (%) (Auto) 2 % (0-3) Basophils (%) (Auto) 1 % (0-3) Neutrophils # (Auto) 6.0 x10^3uL (1.8-7.7) Lymphocytes # (Auto) 1.6 x10^3/uL (1.0-4.8) Monocytes # (Auto) 0.8 x10^3/uL (0.0-1.1) Eosinophils # (Auto) 0.1 x10^3/uL (0.0-0.7) Basophils # (Auto) 0.0 x10^3/uL (0.0-0.2) Sodium Level 143 mmol/L (136-145) Potassium Level 4.2 mmol/L (3.5-5.1) Chloride Level 107 mmol/L (98-107) Carbon Dioxide Level 26 mmol/L (21-32) Anion Gap 10 (6-14) Blood Urea Nitrogen 13 mg/dL (7-20) Creatinine 0.8 mg/dL (0.6-1.0) Estimated GFR (Cockcroft-Gault) 68.5 BUN/Creatinine Ratio 16 (6-20) Glucose Level 93 mg/dL (70-99) Calcium Level 8.6 mg/dL (8.5-10.1) Total Bilirubin 0.6 mg/dL (0.2-1.0) Aspartate Amino Transferase (AST) 17 U/L (15-37) Alanine Aminotransferase (ALT) 22 U/L (14-59) Alkaline Phosphatase 67 U/L (46-116) Total Protein 6.8 g/dL (6.4-8.2) Albumin 3.3 g/dL (3.4-5.0) L Albumin/Globulin Ratio 0.9 (1.0-1.7) L Current Medications: Meds: Laboratory Tests Test 10/10/21 06:00 White Blood Count 8.6 x10^3/uL Red Blood Count 3.91 x10^6/uL Hemoglobin 12.3 g/dL Hematocrit 36.4 % Mean Corpuscular Volume 93 fL Mean Corpuscular Hemoglobin 31 pg Mean Corpuscular Hemoglobin Concent 34 g/dL Red Cell Distribution Width 14.0 % Platelet Count 181 x10^3/uL Neutrophils (%) (Auto) 70 % Lymphocytes (%) (Auto) 18 % Monocytes (%) (Auto) 10 % Eosinophils (%) (Auto) 2 % Basophils (%) (Auto) 1 % Neutrophils # (Auto) 6.0 x10^3uL Lymphocytes # (Auto) 1.6 x10^3/uL Monocytes # (Auto) 0.8 x10^3/uL Eosinophils # (Auto) 0.1 x10^3/uL Basophils # (Auto) 0.0 x10^3/uL Sodium Level 143 mmol/L Potassium Level 4.2 mmol/L Chloride Level 107 mmol/L Carbon Dioxide Level 26 mmol/L Anion Gap 10 Blood Urea Nitrogen 13 mg/dL Creatinine 0.8 mg/dL Estimated GFR (Cockcroft-Gault) 68.5 BUN/Creatinine Ratio 16 Glucose Level 93 mg/dL Calcium Level 8.6 mg/dL Total Bilirubin 0.6 mg/dL Aspartate Amino Transf (AST/SGOT) 17 U/L Alanine Aminotransferase (ALT/SGPT) 22 U/L Alkaline Phosphatase 67 U/L Total Protein 6.8 g/dL Albumin 3.3 g/dL Albumin/Globulin Ratio 0.9 Current Medications Medications (Trade) Dose Ordered Sig/Mayito Route PRN Reason Start Time Stop Time Status Last Admin Dose Admin Acetaminophen (Tylenol) 650 mg PRN Q6HRS PRN PO MILD PAIN / TEMP > 100.3'F 10/03/21 17:00 10/09/21 17:01 Multi-Ingredient Ointment (Analgesic [place]) 1 claudia PRN QID PRN TP MUSCLE PAIN 10/03/21 17:00 Al Hydroxide/Mg Hydroxide (Mylanta Plus Xs) 15 ml PRN AFTMEALHC PRN PO DYSPEPSIA 10/03/21 17:00 Magnesium Hydroxide (Milk Of Magnesia) 2,400 mg PRN QHS PRN PO CONSTIPATION 10/03/21 17:00 10/08/21 21:28 Celecoxib (CeleBREX) 200 mg DAILY PO 10/04/21 09:00 UNV Aspirin (Aspirin Chewable) 81 mg DAILYWBKFT PO 10/04/21 08:00 UNV Alprazolam (Xanax) 0.25 mg QHS ONCE PO 10/03/21 21:00 10/03/21 21:01 UNV Atorvastatin Calcium (Lipitor) 40 mg DAILY PO 10/04/21 09:00 UNV Lisinopril (Prinivil) 5 mg DAILY PO 10/04/21 09:00 UNV Donepezil HCl (Aricept) 10 mg QHS PO 10/03/21 21:00 UNV Lidocaine (Lidoderm) 1 patch DAILY TD 10/04/21 09:00 UNV Miscellaneous (Lidoderm Patch Removal) 1 ea QHS MC 10/03/21 21:00 UNV Trazodone HCl (Desyrel) 25 mg PRN QHS PRN PO INSOMNIA, MAY REPEAT X1 10/03/21 19:45 Alprazolam (Xanax) 0.25 mg QHS PO 10/03/21 21:00 10/09/21 20:01 Aspirin (Aspirin Enteric Coated) 81 mg DAILY PO 10/04/21 09:00 10/09/21 08:29 Donepezil HCl (Aricept) 10 mg QHS PO 10/03/21 21:00 10/09/21 20:01 Lisinopril (Prinivil) 5 mg DAILY PO 10/04/21 09:00 10/09/21 08:30 Atorvastatin Calcium (Lipitor) 40 mg DAILY PO 10/04/21 09:00 10/05/21 15:26 DC 10/04/21 09:01 Celecoxib (CeleBREX) 200 mg DAILY PO 10/04/21 09:00 10/09/21 08:30 Lidocaine (Lidoderm) 1 patch DAILY TP 10/04/21 09:00 10/09/21 15:44 DC 10/08/21 09:15 Multivitamins/ Calcium (Thera-M Plus) 1 tab DAILY PO 10/04/21 09:00 10/09/21 08:30 Miscellaneous (Lidoderm Patch Removal) 1 ea QHS MC 10/03/21 21:00 10/08/21 21:00 Sertraline HCl (Zoloft) 25 mg DAILY PO 10/05/21 09:00 10/07/21 10:00 DC 10/07/21 09:09 Sertraline HCl (Zoloft) 50 mg DAILY PO 10/08/21 09:00 10/09/21 08:30 Atorvastatin Calcium (Lipitor) 40 mg HS PO 10/05/21 21:00 10/09/21 20:01 Lidocaine (Lidoderm) 1 patch PRN DAILY PRN TP PAIN 10/09/21 16:00 I have reviewed the current psychotropics carefully including drug interactions. Risk benefit ratio favors no change other than as noted in my dictated progress note. Diagnosis: Problems: (1) Major depressive disorder, recurrent episode (2) Mild cognitive impairment (3) Anxiety disorder, unspecified NÉSTOR WONG MD Oct 10, 2021 08:15
--- NOTE | 2021-10-10 08:27 | PDOC ---
Exam Note: Rip Note: This note is a late entry for 10/08/2021 covers elements not covered in my initial note. Subjective: The patient was seen individually in the evening of 10/08/2021 with Lazara HINKLE, discussed and reviewed the chart. The patient slept 6 hours previous night. I met with the patient individually at length in her room. She complains of feeling cold. As I met at length in her room she was expressing she is anxious, wants to get home to take care of her . In fact prior to admission her was the one taking care of her and he is unable to do that. Review of Systems: Ambulation impaired with walker. No CV, , pulmonary, eye, ENT system symptoms on review. She does complain of feeling cold. Mental Status Exam: The patient is alert and oriented x4. Speech is somewhat rapid, coherent. She is anxious. Abstraction fair. Computation impaired. Language function intact. Attention span short. Mood and affect dysphoric, anxious, depressed though she minimizes everything. Laboratory Data: Reviewed. Impression: Major depressive disorder, recurrent. Mild cognitive impairment. Anxiety disorder unspecified. Plan: Continue current psychotropics. Assessment: Vital Signs/I&O: Vital Signs Date Time Temp Pulse Resp B/P (MAP) Pulse Ox O2 Delivery O2 Flow Rate FiO2 10/10/21 06:00 97.9 75 18 119/69 (86) 95 I & O 10/09/21 10/09/21 10/10/21 15:00 23:00 07:00 Intake Total 480 ml 240 ml Balance 480 ml 240 ml Labs: Laboratory Tests Test 10/10/21 06:00 White Blood Count 8.6 x10^3/uL (4.0-11.0) Red Blood Count 3.91 x10^6/uL (3.50-5.40) Hemoglobin 12.3 g/dL (12.0-15.5) Hematocrit 36.4 % (36.0-47.0) Mean Corpuscular Volume 93 fL (79-100) Mean Corpuscular Hemoglobin 31 pg (25-35) Mean Corpuscular Hemoglobin Concent 34 g/dL (31-37) Red Cell Distribution Width 14.0 % (11.5-14.5) Platelet Count 181 x10^3/uL (140-400) Neutrophils (%) (Auto) 70 % (31-73) Lymphocytes (%) (Auto) 18 % (24-48) L Monocytes (%) (Auto) 10 % (0-9) H Eosinophils (%) (Auto) 2 % (0-3) Basophils (%) (Auto) 1 % (0-3) Neutrophils # (Auto) 6.0 x10^3uL (1.8-7.7) Lymphocytes # (Auto) 1.6 x10^3/uL (1.0-4.8) Monocytes # (Auto) 0.8 x10^3/uL (0.0-1.1) Eosinophils # (Auto) 0.1 x10^3/uL (0.0-0.7) Basophils # (Auto) 0.0 x10^3/uL (0.0-0.2) Sodium Level 143 mmol/L (136-145) Potassium Level 4.2 mmol/L (3.5-5.1) Chloride Level 107 mmol/L (98-107) Carbon Dioxide Level 26 mmol/L (21-32) Anion Gap 10 (6-14) Blood Urea Nitrogen 13 mg/dL (7-20) Creatinine 0.8 mg/dL (0.6-1.0) Estimated GFR (Cockcroft-Gault) 68.5 BUN/Creatinine Ratio 16 (6-20) Glucose Level 93 mg/dL (70-99) Calcium Level 8.6 mg/dL (8.5-10.1) Total Bilirubin 0.6 mg/dL (0.2-1.0) Aspartate Amino Transferase (AST) 17 U/L (15-37) Alanine Aminotransferase (ALT) 22 U/L (14-59) Alkaline Phosphatase 67 U/L (46-116) Total Protein 6.8 g/dL (6.4-8.2) Albumin 3.3 g/dL (3.4-5.0) L Albumin/Globulin Ratio 0.9 (1.0-1.7) L Current Medications: Meds: Laboratory Tests Test 10/10/21 06:00 White Blood Count 8.6 x10^3/uL Red Blood Count 3.91 x10^6/uL Hemoglobin 12.3 g/dL Hematocrit 36.4 % Mean Corpuscular Volume 93 fL Mean Corpuscular Hemoglobin 31 pg Mean Corpuscular Hemoglobin Concent 34 g/dL Red Cell Distribution Width 14.0 % Platelet Count 181 x10^3/uL Neutrophils (%) (Auto) 70 % Lymphocytes (%) (Auto) 18 % Monocytes (%) (Auto) 10 % Eosinophils (%) (Auto) 2 % Basophils (%) (Auto) 1 % Neutrophils # (Auto) 6.0 x10^3uL Lymphocytes # (Auto) 1.6 x10^3/uL Monocytes # (Auto) 0.8 x10^3/uL Eosinophils # (Auto) 0.1 x10^3/uL Basophils # (Auto) 0.0 x10^3/uL Sodium Level 143 mmol/L Potassium Level 4.2 mmol/L Chloride Level 107 mmol/L Carbon Dioxide Level 26 mmol/L Anion Gap 10 Blood Urea Nitrogen 13 mg/dL Creatinine 0.8 mg/dL Estimated GFR (Cockcroft-Gault) 68.5 BUN/Creatinine Ratio 16 Glucose Level 93 mg/dL Calcium Level 8.6 mg/dL Total Bilirubin 0.6 mg/dL Aspartate Amino Transf (AST/SGOT) 17 U/L Alanine Aminotransferase (ALT/SGPT) 22 U/L Alkaline Phosphatase 67 U/L Total Protein 6.8 g/dL Albumin 3.3 g/dL Albumin/Globulin Ratio 0.9 Current Medications Medications (Trade) Dose Ordered Sig/Mayito Route PRN Reason Start Time Stop Time Status Last Admin Dose Admin Acetaminophen (Tylenol) 650 mg PRN Q6HRS PRN PO MILD PAIN / TEMP > 100.3'F 10/03/21 17:00 10/09/21 17:01 Multi-Ingredient Ointment (Analgesic [place]) 1 claudia PRN QID PRN TP MUSCLE PAIN 10/03/21 17:00 Al Hydroxide/Mg Hydroxide (Mylanta Plus Xs) 15 ml PRN AFTMEALHC PRN PO DYSPEPSIA 10/03/21 17:00 Magnesium Hydroxide (Milk Of Magnesia) 2,400 mg PRN QHS PRN PO CONSTIPATION 10/03/21 17:00 10/08/21 21:28 Celecoxib (CeleBREX) 200 mg DAILY PO 10/04/21 09:00 UNV Aspirin (Aspirin Chewable) 81 mg DAILYWBKFT PO 10/04/21 08:00 UNV Alprazolam (Xanax) 0.25 mg QHS ONCE PO 10/03/21 21:00 10/03/21 21:01 UNV Atorvastatin Calcium (Lipitor) 40 mg DAILY PO 10/04/21 09:00 UNV Lisinopril (Prinivil) 5 mg DAILY PO 10/04/21 09:00 UNV Donepezil HCl (Aricept) 10 mg QHS PO 10/03/21 21:00 UNV Lidocaine (Lidoderm) 1 patch DAILY TD 10/04/21 09:00 UNV Miscellaneous (Lidoderm Patch Removal) 1 ea QHS MC 10/03/21 21:00 UNV Trazodone HCl (Desyrel) 25 mg PRN QHS PRN PO INSOMNIA, MAY REPEAT X1 10/03/21 19:45 Alprazolam (Xanax) 0.25 mg QHS PO 10/03/21 21:00 10/09/21 20:01 Aspirin (Aspirin Enteric Coated) 81 mg DAILY PO 10/04/21 09:00 10/09/21 08:29 Donepezil HCl (Aricept) 10 mg QHS PO 10/03/21 21:00 10/09/21 20:01 Lisinopril (Prinivil) 5 mg DAILY PO 10/04/21 09:00 10/09/21 08:30 Atorvastatin Calcium (Lipitor) 40 mg DAILY PO 10/04/21 09:00 10/05/21 15:26 DC 10/04/21 09:01 Celecoxib (CeleBREX) 200 mg DAILY PO 10/04/21 09:00 10/09/21 08:30 Lidocaine (Lidoderm) 1 patch DAILY TP 10/04/21 09:00 10/09/21 15:44 DC 10/08/21 09:15 Multivitamins/ Calcium (Thera-M Plus) 1 tab DAILY PO 10/04/21 09:00 10/09/21 08:30 Miscellaneous (Lidoderm Patch Removal) 1 ea QHS MC 10/03/21 21:00 10/08/21 21:00 Sertraline HCl (Zoloft) 25 mg DAILY PO 10/05/21 09:00 10/07/21 10:00 DC 10/07/21 09:09 Sertraline HCl (Zoloft) 50 mg DAILY PO 10/08/21 09:00 10/09/21 08:30 Atorvastatin Calcium (Lipitor) 40 mg HS PO 10/05/21 21:00 10/09/21 20:01 Lidocaine (Lidoderm) 1 patch PRN DAILY PRN TP PAIN 10/09/21 16:00 I have reviewed the current psychotropics carefully including drug interactions. Risk benefit ratio favors no change other than as noted in my dictated progress note. Diagnosis: Problems: (1) Major depressive disorder, recurrent episode (2) Mild cognitive impairment (3) Anxiety disorder, unspecified NÉSTOR WONG MD Oct 10, 2021 08:27
--- NOTE | 2021-10-10 08:42 | PDOC ---
Exam Note: Rip Note: This note is a late entry for 10/09/2021 covers elements not covered in my initial note. Subjective: The patient was seen individually in the evening of 10/09/2021 with Lazara HINKLE, discussed and reviewed the chart. The patient slept 7-1/4 hours previous night. She is eager to move to the regular side of the unit. Review of Systems: She does complain of flowing nose and sore throat. We will defer to Dr. Julien. Covid screen on the 10/07 was negative. No CV, , eye, ENT system symptoms on review. Positive for feeling cold. Mental Status Exam: The patient is reasonably oriented. Speech is coherent. Abstraction fair. Computation impaired. Language function intact. Mood and affect still depressed, anxious. No suicidal ideation. Laboratory Data: Reviewed. Impression: Major depressive disorder, recurrent, rule out psychotic features. Mild cognitive impairment. Anxiety disorder unspecified. Plan: Continue current psychotropics. I asked the nursing staff to give her some heated blankets and she is very appreciative of this. Assessment: Vital Signs/I&O: Vital Signs Date Time Temp Pulse Resp B/P (MAP) Pulse Ox O2 Delivery O2 Flow Rate FiO2 10/10/21 06:00 97.9 75 18 119/69 (86) 95 I & O 10/09/21 10/09/21 10/10/21 15:00 23:00 07:00 Intake Total 480 ml 240 ml Balance 480 ml 240 ml Labs: Laboratory Tests Test 10/10/21 06:00 White Blood Count 8.6 x10^3/uL (4.0-11.0) Red Blood Count 3.91 x10^6/uL (3.50-5.40) Hemoglobin 12.3 g/dL (12.0-15.5) Hematocrit 36.4 % (36.0-47.0) Mean Corpuscular Volume 93 fL (79-100) Mean Corpuscular Hemoglobin 31 pg (25-35) Mean Corpuscular Hemoglobin Concent 34 g/dL (31-37) Red Cell Distribution Width 14.0 % (11.5-14.5) Platelet Count 181 x10^3/uL (140-400) Neutrophils (%) (Auto) 70 % (31-73) Lymphocytes (%) (Auto) 18 % (24-48) L Monocytes (%) (Auto) 10 % (0-9) H Eosinophils (%) (Auto) 2 % (0-3) Basophils (%) (Auto) 1 % (0-3) Neutrophils # (Auto) 6.0 x10^3uL (1.8-7.7) Lymphocytes # (Auto) 1.6 x10^3/uL (1.0-4.8) Monocytes # (Auto) 0.8 x10^3/uL (0.0-1.1) Eosinophils # (Auto) 0.1 x10^3/uL (0.0-0.7) Basophils # (Auto) 0.0 x10^3/uL (0.0-0.2) Sodium Level 143 mmol/L (136-145) Potassium Level 4.2 mmol/L (3.5-5.1) Chloride Level 107 mmol/L (98-107) Carbon Dioxide Level 26 mmol/L (21-32) Anion Gap 10 (6-14) Blood Urea Nitrogen 13 mg/dL (7-20) Creatinine 0.8 mg/dL (0.6-1.0) Estimated GFR (Cockcroft-Gault) 68.5 BUN/Creatinine Ratio 16 (6-20) Glucose Level 93 mg/dL (70-99) Calcium Level 8.6 mg/dL (8.5-10.1) Total Bilirubin 0.6 mg/dL (0.2-1.0) Aspartate Amino Transferase (AST) 17 U/L (15-37) Alanine Aminotransferase (ALT) 22 U/L (14-59) Alkaline Phosphatase 67 U/L (46-116) Total Protein 6.8 g/dL (6.4-8.2) Albumin 3.3 g/dL (3.4-5.0) L Albumin/Globulin Ratio 0.9 (1.0-1.7) L Current Medications: Meds: Laboratory Tests Test 10/10/21 06:00 White Blood Count 8.6 x10^3/uL Red Blood Count 3.91 x10^6/uL Hemoglobin 12.3 g/dL Hematocrit 36.4 % Mean Corpuscular Volume 93 fL Mean Corpuscular Hemoglobin 31 pg Mean Corpuscular Hemoglobin Concent 34 g/dL Red Cell Distribution Width 14.0 % Platelet Count 181 x10^3/uL Neutrophils (%) (Auto) 70 % Lymphocytes (%) (Auto) 18 % Monocytes (%) (Auto) 10 % Eosinophils (%) (Auto) 2 % Basophils (%) (Auto) 1 % Neutrophils # (Auto) 6.0 x10^3uL Lymphocytes # (Auto) 1.6 x10^3/uL Monocytes # (Auto) 0.8 x10^3/uL Eosinophils # (Auto) 0.1 x10^3/uL Basophils # (Auto) 0.0 x10^3/uL Sodium Level 143 mmol/L Potassium Level 4.2 mmol/L Chloride Level 107 mmol/L Carbon Dioxide Level 26 mmol/L Anion Gap 10 Blood Urea Nitrogen 13 mg/dL Creatinine 0.8 mg/dL Estimated GFR (Cockcroft-Gault) 68.5 BUN/Creatinine Ratio 16 Glucose Level 93 mg/dL Calcium Level 8.6 mg/dL Total Bilirubin 0.6 mg/dL Aspartate Amino Transf (AST/SGOT) 17 U/L Alanine Aminotransferase (ALT/SGPT) 22 U/L Alkaline Phosphatase 67 U/L Total Protein 6.8 g/dL Albumin 3.3 g/dL Albumin/Globulin Ratio 0.9 Current Medications Medications (Trade) Dose Ordered Sig/Mayito Route PRN Reason Start Time Stop Time Status Last Admin Dose Admin Acetaminophen (Tylenol) 650 mg PRN Q6HRS PRN PO MILD PAIN / TEMP > 100.3'F 10/03/21 17:00 10/09/21 17:01 Multi-Ingredient Ointment (Analgesic [place]) 1 claudia PRN QID PRN TP MUSCLE PAIN 10/03/21 17:00 Al Hydroxide/Mg Hydroxide (Mylanta Plus Xs) 15 ml PRN AFTMEALHC PRN PO DYSPEPSIA 10/03/21 17:00 Magnesium Hydroxide (Milk Of Magnesia) 2,400 mg PRN QHS PRN PO CONSTIPATION 10/03/21 17:00 10/08/21 21:28 Celecoxib (CeleBREX) 200 mg DAILY PO 10/04/21 09:00 UNV Aspirin (Aspirin Chewable) 81 mg DAILYWBKFT PO 10/04/21 08:00 UNV Alprazolam (Xanax) 0.25 mg QHS ONCE PO 10/03/21 21:00 10/03/21 21:01 UNV Atorvastatin Calcium (Lipitor) 40 mg DAILY PO 10/04/21 09:00 UNV Lisinopril (Prinivil) 5 mg DAILY PO 10/04/21 09:00 UNV Donepezil HCl (Aricept) 10 mg QHS PO 10/03/21 21:00 UNV Lidocaine (Lidoderm) 1 patch DAILY TD 10/04/21 09:00 UNV Miscellaneous (Lidoderm Patch Removal) 1 ea QHS MC 10/03/21 21:00 UNV Trazodone HCl (Desyrel) 25 mg PRN QHS PRN PO INSOMNIA, MAY REPEAT X1 10/03/21 19:45 Alprazolam (Xanax) 0.25 mg QHS PO 10/03/21 21:00 10/09/21 20:01 Aspirin (Aspirin Enteric Coated) 81 mg DAILY PO 10/04/21 09:00 10/09/21 08:29 Donepezil HCl (Aricept) 10 mg QHS PO 10/03/21 21:00 10/09/21 20:01 Lisinopril (Prinivil) 5 mg DAILY PO 10/04/21 09:00 10/09/21 08:30 Atorvastatin Calcium (Lipitor) 40 mg DAILY PO 10/04/21 09:00 10/05/21 15:26 DC 10/04/21 09:01 Celecoxib (CeleBREX) 200 mg DAILY PO 10/04/21 09:00 10/09/21 08:30 Lidocaine (Lidoderm) 1 patch DAILY TP 10/04/21 09:00 10/09/21 15:44 DC 10/08/21 09:15 Multivitamins/ Calcium (Thera-M Plus) 1 tab DAILY PO 10/04/21 09:00 10/09/21 08:30 Miscellaneous (Lidoderm Patch Removal) 1 ea QHS MC 10/03/21 21:00 10/08/21 21:00 Sertraline HCl (Zoloft) 25 mg DAILY PO 10/05/21 09:00 10/07/21 10:00 DC 10/07/21 09:09 Sertraline HCl (Zoloft) 50 mg DAILY PO 10/08/21 09:00 10/09/21 08:30 Atorvastatin Calcium (Lipitor) 40 mg HS PO 10/05/21 21:00 10/09/21 20:01 Lidocaine (Lidoderm) 1 patch PRN DAILY PRN TP PAIN 10/09/21 16:00 I have reviewed the current psychotropics carefully including drug interactions. Risk benefit ratio favors no change other than as noted in my dictated progress note. Diagnosis: Problems: (1) Major depressive disorder, recurrent episode (2) Mild cognitive impairment (3) Anxiety disorder, unspecified NÉSTOR WONG MD Oct 10, 2021 08:42
[2021-10-10] MEDS: MULTIVITAMIN with MINERAL TABLET. PO SCH (08:46)
[2021-10-10] MEDS: ASPIRIN ENTERIC COATED 81 MG TABLET.DR. PO SCH (08:46)
[2021-10-10] MEDS: SERTRALINE 50 MG TABLET. PO SCH (08:46)
[2021-10-10] MEDS: LISINOPRIL 5 MG TABLET. PO SCH (08:46)
[2021-10-10] MEDS: CELECOXIB 100 MG CAPSULE PO SCH (08:46)
[2021-10-10] MEDS: ACETAMINOPHEN 325 MG TABLET PO PRN ×2 (08:49→21:11)
--- NOTE | 2021-10-10 15:08 | NUR ---
Nursing note: Patient is in hallway for morning medication & assessment. She is compliant with medications taken whole. She is alert and oriented x 4. She was moved to room 212 after breakfast. She ambulates independently with walker, can be unstable at times. She denies any SI at this time. Patient denies pain/discomfort. She can be forgetful, anxious, & hyperverbal. This nurse encouraged patient to go to day room after lunch, as she walked with her walker through east side doorway of day room she fell to her right side. No injury at this time, family and Dr Jc notified with no new orders to note. She did c/o some pain in her right wrist that has the splint on it, will continue to monitor. Staff provided w/c for transporting uses, she will require a standby assist for ambulating. She is currently resting in bed with eyes closed. Will continue to monitor.
[2021-10-10 15:20] VITALS: BP 103/52
--- NOTE | 2021-10-10 20:09 | PDOC ---
Exam Note: Rip Note: Please also refer to the separate dictated note~for this date of service dictated separately.~Patient seen individually. Discussed the patient with Nursing staff reviewed the chart.~Reviewed interim history and current functioning. Reviewed vital signs,~Labs/ Radiology~and current medications noted below. Continue current treatment with the changes noted in the dictated addendum note Assessment: Vital Signs/I&O: Vital Signs Date Time Temp Pulse Resp B/P (MAP) Pulse Ox O2 Delivery O2 Flow Rate FiO2 10/10/21 15:20 97.3 95 20 103/52 (69) 97 I & O 10/09/21 10/09/21 10/10/21 15:00 23:00 07:00 Intake Total 480 ml 240 ml Balance 480 ml 240 ml Labs: Laboratory Tests Test 10/10/21 06:00 White Blood Count 8.6 x10^3/uL (4.0-11.0) Red Blood Count 3.91 x10^6/uL (3.50-5.40) Hemoglobin 12.3 g/dL (12.0-15.5) Hematocrit 36.4 % (36.0-47.0) Mean Corpuscular Volume 93 fL (79-100) Mean Corpuscular Hemoglobin 31 pg (25-35) Mean Corpuscular Hemoglobin Concent 34 g/dL (31-37) Red Cell Distribution Width 14.0 % (11.5-14.5) Platelet Count 181 x10^3/uL (140-400) Neutrophils (%) (Auto) 70 % (31-73) Lymphocytes (%) (Auto) 18 % (24-48) L Monocytes (%) (Auto) 10 % (0-9) H Eosinophils (%) (Auto) 2 % (0-3) Basophils (%) (Auto) 1 % (0-3) Neutrophils # (Auto) 6.0 x10^3uL (1.8-7.7) Lymphocytes # (Auto) 1.6 x10^3/uL (1.0-4.8) Monocytes # (Auto) 0.8 x10^3/uL (0.0-1.1) Eosinophils # (Auto) 0.1 x10^3/uL (0.0-0.7) Basophils # (Auto) 0.0 x10^3/uL (0.0-0.2) Sodium Level 143 mmol/L (136-145) Potassium Level 4.2 mmol/L (3.5-5.1) Chloride Level 107 mmol/L (98-107) Carbon Dioxide Level 26 mmol/L (21-32) Anion Gap 10 (6-14) Blood Urea Nitrogen 13 mg/dL (7-20) Creatinine 0.8 mg/dL (0.6-1.0) Estimated GFR (Cockcroft-Gault) 68.5 BUN/Creatinine Ratio 16 (6-20) Glucose Level 93 mg/dL (70-99) Calcium Level 8.6 mg/dL (8.5-10.1) Total Bilirubin 0.6 mg/dL (0.2-1.0) Aspartate Amino Transferase (AST) 17 U/L (15-37) Alanine Aminotransferase (ALT) 22 U/L (14-59) Alkaline Phosphatase 67 U/L (46-116) Total Protein 6.8 g/dL (6.4-8.2) Albumin 3.3 g/dL (3.4-5.0) L Albumin/Globulin Ratio 0.9 (1.0-1.7) L Current Medications: Meds: Laboratory Tests Test 10/10/21 06:00 White Blood Count 8.6 x10^3/uL Red Blood Count 3.91 x10^6/uL Hemoglobin 12.3 g/dL Hematocrit 36.4 % Mean Corpuscular Volume 93 fL Mean Corpuscular Hemoglobin 31 pg Mean Corpuscular Hemoglobin Concent 34 g/dL Red Cell Distribution Width 14.0 % Platelet Count 181 x10^3/uL Neutrophils (%) (Auto) 70 % Lymphocytes (%) (Auto) 18 % Monocytes (%) (Auto) 10 % Eosinophils (%) (Auto) 2 % Basophils (%) (Auto) 1 % Neutrophils # (Auto) 6.0 x10^3uL Lymphocytes # (Auto) 1.6 x10^3/uL Monocytes # (Auto) 0.8 x10^3/uL Eosinophils # (Auto) 0.1 x10^3/uL Basophils # (Auto) 0.0 x10^3/uL Sodium Level 143 mmol/L Potassium Level 4.2 mmol/L Chloride Level 107 mmol/L Carbon Dioxide Level 26 mmol/L Anion Gap 10 Blood Urea Nitrogen 13 mg/dL Creatinine 0.8 mg/dL Estimated GFR (Cockcroft-Gault) 68.5 BUN/Creatinine Ratio 16 Glucose Level 93 mg/dL Calcium Level 8.6 mg/dL Total Bilirubin 0.6 mg/dL Aspartate Amino Transf (AST/SGOT) 17 U/L Alanine Aminotransferase (ALT/SGPT) 22 U/L Alkaline Phosphatase 67 U/L Total Protein 6.8 g/dL Albumin 3.3 g/dL Albumin/Globulin Ratio 0.9 Current Medications Medications (Trade) Dose Ordered Sig/Mayito Route PRN Reason Start Time Stop Time Status Last Admin Dose Admin Acetaminophen (Tylenol) 650 mg PRN Q6HRS PRN PO MILD PAIN / TEMP > 100.3'F 10/03/21 17:00 10/10/21 08:49 Multi-Ingredient Ointment (Analgesic [place]) 1 claudia PRN QID PRN TP MUSCLE PAIN 10/03/21 17:00 Al Hydroxide/Mg Hydroxide (Mylanta Plus Xs) 15 ml PRN AFTMEALHC PRN PO DYSPEPSIA 10/03/21 17:00 Magnesium Hydroxide (Milk Of Magnesia) 2,400 mg PRN QHS PRN PO CONSTIPATION 10/03/21 17:00 10/08/21 21:28 Celecoxib (CeleBREX) 200 mg DAILY PO 10/04/21 09:00 UNV Aspirin (Aspirin Chewable) 81 mg DAILYWBKFT PO 10/04/21 08:00 UNV Alprazolam (Xanax) 0.25 mg QHS ONCE PO 10/03/21 21:00 10/03/21 21:01 UNV Atorvastatin Calcium (Lipitor) 40 mg DAILY PO 10/04/21 09:00 UNV Lisinopril (Prinivil) 5 mg DAILY PO 10/04/21 09:00 UNV Donepezil HCl (Aricept) 10 mg QHS PO 10/03/21 21:00 UNV Lidocaine (Lidoderm) 1 patch DAILY TD 10/04/21 09:00 UNV Miscellaneous (Lidoderm Patch Removal) 1 ea QHS MC 10/03/21 21:00 UNV Trazodone HCl (Desyrel) 25 mg PRN QHS PRN PO INSOMNIA, MAY REPEAT X1 10/03/21 19:45 Alprazolam (Xanax) 0.25 mg QHS PO 10/03/21 21:00 10/09/21 20:01 Aspirin (Aspirin Enteric Coated) 81 mg DAILY PO 10/04/21 09:00 10/10/21 08:46 Donepezil HCl (Aricept) 10 mg QHS PO 10/03/21 21:00 10/09/21 20:01 Lisinopril (Prinivil) 5 mg DAILY PO 10/04/21 09:00 10/10/21 08:46 Atorvastatin Calcium (Lipitor) 40 mg DAILY PO 10/04/21 09:00 10/05/21 15:26 DC 10/04/21 09:01 Celecoxib (CeleBREX) 200 mg DAILY PO 10/04/21 09:00 10/10/21 08:46 Lidocaine (Lidoderm) 1 patch DAILY TP 10/04/21 09:00 10/09/21 15:44 DC 10/08/21 09:15 Multivitamins/ Calcium (Thera-M Plus) 1 tab DAILY PO 10/04/21 09:00 10/10/21 08:46 Miscellaneous (Lidoderm Patch Removal) 1 ea QHS 10/03/21 21:00 10/10/21 11:31 DC 10/08/21 21:00 Sertraline HCl (Zoloft) 25 mg DAILY PO 10/05/21 09:00 10/07/21 10:00 DC 10/07/21 09:09 Sertraline HCl (Zoloft) 50 mg DAILY PO 10/08/21 09:00 10/10/21 08:46 Atorvastatin Calcium (Lipitor) 40 mg HS PO 10/05/21 21:00 10/09/21 20:01 Lidocaine (Lidoderm) 1 patch PRN DAILY PRN TP PAIN 10/09/21 16:00 Miscellaneous (Lidoderm Patch Removal) 1 ea PRN QHS 10/10/21 21:00 I have reviewed the current psychotropics carefully including drug interactions. Risk benefit ratio favors no change other than as noted in my dictated progress note. Diagnosis: Problems: (1) Major depressive disorder, recurrent episode (2) Mild cognitive impairment (3) Anxiety disorder, unspecified NÉSTOR WONG MD Oct 10, 2021 20:09
[2021-10-10] MEDS ORDERED: PATCH REMOVAL. MC SCH (21:00)
[2021-10-10] MEDS: DONEPEZIL HCL 10 MG TABLET PO SCH (21:08)
[2021-10-10] MEDS: ATORVASTATIN CALCIUM 20 MG TABLET PO SCH (21:08)
[2021-10-10] MEDS: ALPRAZolam 0.25 MG TABLET PO SCH (21:08)
--- NOTE | 2021-10-10 23:55 | NUR ---
Nursing Note The patient was located in her room for her assessment and medication pass. The patient was alert to name, date, location. The patient was pleasant during interactions. The patient took her medication whole and is currently sleeping in her room. Received PRN Tylenol for right arm pain@HS.
[2021-10-11 06:04] VITALS: BP 109/65
--- NOTE | 2021-10-11 06:51 | PDOC ---
Exam Note: Rip Note: This note is a late entry for 10/10/2021 covers elements not covered in my initial note. Subjective: The patient was seen individually in the evening of 10/10/2021 with Ramiro HINKLE, discussed and reviewed the chart. The patient slept 8-3/4 hours previous night. Overall she remains somewhat depressed, anxious but minimizes all of this. She had a fall earlier today. She complains of pain in her right forearm on which she has a splint. Dr. Jc is addressing all of this. Review of Systems: No CV, , eye, ENT system symptoms on review. Mental Status Exam: The patient is reasonably oriented. Speech is coherent. Abstraction fair. Computation impaired. Language function intact. Attention span short. Mood and affect depressed, anxious. Laboratory Data: Reviewed. Impression: Major depressive disorder, recurrent, rule out psychotic features. Mild cognitive impairment. Anxiety disorder unspecified. Plan: Continue current psychotropics. Assessment: Vital Signs/I&O: Vital Signs Date Time Temp Pulse Resp B/P (MAP) Pulse Ox O2 Delivery O2 Flow Rate FiO2 10/11/21 06:04 97.5 77 16 109/65 (80) 92 I & O 0 10/10/21 10/10/21 10/11/21 15:00 23:00 07:00 Intake Total 720 ml 240 ml Balance 720 ml 240 ml Current Medications: Meds: Current Medications Medications (Trade) Dose Ordered Sig/Mayito Route PRN Reason Start Time Stop Time Status Last Admin Dose Admin Acetaminophen (Tylenol) 650 mg PRN Q6HRS PRN PO MILD PAIN / TEMP > 100.3'F 10/03/21 17:00 10/10/21 21:11 Multi-Ingredient Ointment (Analgesic [place]) 1 claudia PRN QID PRN TP MUSCLE PAIN 10/03/21 17:00 Al Hydroxide/Mg Hydroxide (Mylanta Plus Xs) 15 ml PRN AFTMEALHC PRN PO DYSPEPSIA 10/03/21 17:00 Magnesium Hydroxide (Milk Of Magnesia) 2,400 mg PRN QHS PRN PO CONSTIPATION 10/03/21 17:00 10/08/21 21:28 Celecoxib (CeleBREX) 200 mg DAILY PO 10/04/21 09:00 UNV Aspirin (Aspirin Chewable) 81 mg DAILYWBKFT PO 10/04/21 08:00 UNV Alprazolam (Xanax) 0.25 mg QHS ONCE PO 10/03/21 21:00 10/03/21 21:01 UNV Atorvastatin Calcium (Lipitor) 40 mg DAILY PO 10/04/21 09:00 UNV Lisinopril (Prinivil) 5 mg DAILY PO 10/04/21 09:00 UNV Donepezil HCl (Aricept) 10 mg QHS PO 10/03/21 21:00 UNV Lidocaine (Lidoderm) 1 patch DAILY TD 10/04/21 09:00 UNV Miscellaneous (Lidoderm Patch Removal) 1 ea QHS MC 10/03/21 21:00 UNV Trazodone HCl (Desyrel) 25 mg PRN QHS PRN PO INSOMNIA, MAY REPEAT X1 10/03/21 19:45 Alprazolam (Xanax) 0.25 mg QHS PO 10/03/21 21:00 10/10/21 21:08 Aspirin (Aspirin Enteric Coated) 81 mg DAILY PO 10/04/21 09:00 10/10/21 08:46 Donepezil HCl (Aricept) 10 mg QHS PO 10/03/21 21:00 10/10/21 21:08 Lisinopril (Prinivil) 5 mg DAILY PO 10/04/21 09:00 10/10/21 08:46 Atorvastatin Calcium (Lipitor) 40 mg DAILY PO 10/04/21 09:00 10/05/21 15:26 DC 10/04/21 09:01 Celecoxib (CeleBREX) 200 mg DAILY PO 10/04/21 09:00 10/10/21 08:46 Lidocaine (Lidoderm) 1 patch DAILY TP 10/04/21 09:00 10/09/21 15:44 DC 10/08/21 09:15 Multivitamins/ Calcium (Thera-M Plus) 1 tab DAILY PO 10/04/21 09:00 10/10/21 08:46 Miscellaneous (Lidoderm Patch Removal) 1 ea QHS MC 10/03/21 21:00 10/10/21 11:31 DC 10/08/21 21:00 Sertraline HCl (Zoloft) 25 mg DAILY PO 10/05/21 09:00 10/07/21 10:00 DC 10/07/21 09:09 Sertraline HCl (Zoloft) 50 mg DAILY PO 10/08/21 09:00 10/10/21 08:46 Atorvastatin Calcium (Lipitor) 40 mg HS PO 10/05/21 21:00 10/10/21 21:08 Lidocaine (Lidoderm) 1 patch PRN DAILY PRN TP PAIN 10/09/21 16:00 10/11/21 05:36 Miscellaneous (Lidoderm Patch Removal) 1 ea PRN QHS MC 10/10/21 21:00 I have reviewed the current psychotropics carefully including drug interactions. Risk benefit ratio favors no change other than as noted in my dictated progress note. Diagnosis: Problems: (1) Major depressive disorder, recurrent episode (2) Mild cognitive impairment (3) Anxiety disorder, unspecified NÉSTOR WONG MD Oct 11, 2021 06:50
[2021-10-11] MEDS: CELECOXIB 100 MG CAPSULE PO SCH (08:25)
[2021-10-11] MEDS: SERTRALINE 50 MG TABLET. PO SCH (08:25)
[2021-10-11] MEDS: LISINOPRIL 5 MG TABLET. PO SCH (08:25)
[2021-10-11] MEDS: MULTIVITAMIN with MINERAL TABLET. PO SCH (08:25)
[2021-10-11] MEDS: ASPIRIN ENTERIC COATED 81 MG TABLET.DR. PO SCH (08:26)
--- NOTE | 2021-10-11 16:03 | NUR ---
Nursing note: Patient is in dinning room for morning medication & assessment. She is compliant with medications taken whole. She is alert and oriented x 4. She propels self in w/c, if she walks she requires a walker and standby assist. She denies any SI at this time. Patient reports 9/10 right wrist pain, x-ray order noted; results still pending. She can be forgetful, anxious, & hyperverbal. This nurse noted new order for Zyrtec 10mg daily for runny nose. She is currently resting in bed with eyes closed. Will continue to monitor.
[2021-10-11 16:10] VITALS: BP 102/62
--- NOTE | 2021-10-11 16:24 | RAD ---
XR RT WRIST [id number] History: Reason: c/o pain, history of fracture / Spl. Instructions: / History: Technique: 3 views right wrist Comparison: None. Findings: Comminuted intra-articular impacted distal radial fracture with dorsal angulation and displacement. S clerosis along the fracture line. Mildly displaced distal ulnar fracture. 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 Impression: 1. Comminuted intra-articular impacted distal right radius fracture with dorsal angulation and mild displacement. 2. Mildly displaced distal ulnar fracture. Electronically signed by: Mauricio Espitia DO (10/11/2021 4:21 PM) [id number]
[2021-10-11] MEDS: DONEPEZIL HCL 10 MG TABLET PO SCH (20:52)
[2021-10-11] MEDS: ATORVASTATIN CALCIUM 20 MG TABLET PO SCH (20:52)
[2021-10-11] MEDS: ALPRAZolam 0.25 MG TABLET PO SCH (20:52)
--- NOTE | 2021-10-11 21:05 | PDOC ---
Exam Note: Rip Note: Please also refer to the separate dictated note~for this date of service dictated separately.~Patient seen individually. Discussed the patient with Nursing staff reviewed the chart.~Reviewed interim history and current functioning. Reviewed vital signs,~Labs/ Radiology~and current medications noted below. Continue current treatment with the changes noted in the dictated addendum note Assessment: Vital Signs/I&O: Vital Signs Date Time Temp Pulse Resp B/P (MAP) Pulse Ox O2 Delivery O2 Flow Rate FiO2 10/11/21 16:10 97.8 78 20 102/62 (75) 95 I & O 10/10/21 10/10/21 10/11/21 15:00 23:00 07:00 Intake Total 720 ml 240 ml Balance 720 ml 240 ml Current Medications: Meds: Current Medications Medications (Trade) Dose Ordered Sig/Mayito Route PRN Reason Start Time Stop Time Status Last Admin Dose Admin Acetaminophen (Tylenol) 650 mg PRN Q6HRS PRN PO MILD PAIN / TEMP > 100.3'F 10/03/21 17:00 10/10/21 21:11 Multi-Ingredient Ointment (Analgesic [place]) 1 claudia PRN QID PRN TP MUSCLE PAIN 10/03/21 17:00 Al Hydroxide/Mg Hydroxide (Mylanta Plus Xs) 15 ml PRN AFTMEALHC PRN PO DYSPEPSIA 10/03/21 17:00 Magnesium Hydroxide (Milk Of Magnesia) 2,400 mg PRN QHS PRN PO CONSTIPATION 10/03/21 17:00 10/08/21 21:28 Celecoxib (CeleBREX) 200 mg DAILY PO 10/04/21 09:00 UNV Aspirin (Aspirin Chewable) 81 mg DAILYWBKFT PO 10/04/21 08:00 UNV Alprazolam (Xanax) 0.25 mg QHS ONCE PO 10/03/21 21:00 10/03/21 21:01 UNV Atorvastatin Calcium (Lipitor) 40 mg DAILY PO 10/04/21 09:00 UNV Lisinopril (Prinivil) 5 mg DAILY PO 10/04/21 09:00 UNV Donepezil HCl (Aricept) 10 mg QHS PO 10/03/21 21:00 UNV Lidocaine (Lidoderm) 1 patch DAILY TD 10/04/21 09:00 UNV Miscellaneous (Lidoderm Patch Removal) 1 ea QHS 10/03/21 21:00 UNV Trazodone HCl (Desyrel) 25 mg PRN QHS PRN PO INSOMNIA, MAY REPEAT X1 10/03/21 19:45 Alprazolam (Xanax) 0.25 mg QHS PO 10/03/21 21:00 10/11/21 20:52 Aspirin (Aspirin Enteric Coated) 81 mg DAILY PO 10/04/21 09:00 10/11/21 08:26 Donepezil HCl (Aricept) 10 mg QHS PO 10/03/21 21:00 10/11/21 20:52 Lisinopril (Prinivil) 5 mg DAILY PO 10/04/21 09:00 10/11/21 08:25 Atorvastatin Calcium (Lipitor) 40 mg DAILY PO 10/04/21 09:00 10/05/21 15:26 DC 10/04/21 09:01 Celecoxib (CeleBREX) 200 mg DAILY PO 10/04/21 09:00 10/11/21 08:25 Lidocaine (Lidoderm) 1 patch DAILY TP 10/04/21 09:00 10/09/21 15:44 DC 10/08/21 09:15 Multivitamins/ Calcium (Thera-M Plus) 1 tab DAILY PO 10/04/21 09:00 10/11/21 08:25 Miscellaneous (Lidoderm Patch Removal) 1 ea QHS 10/03/21 21:00 10/10/21 11:31 DC 10/08/21 21:00 Sertraline HCl (Zoloft) 25 mg DAILY PO 10/05/21 09:00 10/07/21 10:00 DC 10/07/21 09:09 Sertraline HCl (Zoloft) 50 mg DAILY PO 10/08/21 09:00 10/11/21 08:25 Atorvastatin Calcium (Lipitor) 40 mg HS PO 10/05/21 21:00 10/11/21 20:52 Lidocaine (Lidoderm) 1 patch PRN DAILY PRN TP PAIN 10/09/21 16:00 10/11/21 05:36 Miscellaneous (Lidoderm Patch Removal) 1 ea PRN QHS 10/10/21 21:00 Cetirizine HCl (ZyrTEC) 10 mg DAILY PO 10/12/21 09:00 I have reviewed the current psychotropics carefully including drug interactions. Risk benefit ratio favors no change other than as noted in my dictated progress note. Diagnosis: Problems: (1) Major depressive disorder, recurrent episode (2) Mild cognitive impairment (3) Anxiety disorder, unspecified NÉSTOR WONG MD Oct 11, 2021 21:05
--- NOTE | 2021-10-11 23:42 | NUR ---
Nursing Note The patient was located in her room laying in bed for her assessment and medication pass. the patient was alert to name, location and date. The patient was compliant with her medication and took them whole. The patient is currently sleeping in her room.
[2021-10-12 05:59] VITALS: BP 132/70
--- NOTE | 2021-10-12 07:30 | PDOC ---
Exam Note: Rip Note: This note is a late entry for 10/11/2021 covers elements not covered in my initial note. Subjective: The patient was seen individually in the evening of 10/11/2021 with Ramiro HINKLE, discussed and reviewed the chart. The patient slept 6-3/4 hours previous night. She has been somewhat withdrawn, otherwise, compliant, depressed and anxious, minimizes this. She did have a repeat x-ray of her right lower forearm status post fall yesterday and a prior fracture. We will defer to Dr. Julien/Dr. Jc and nursing staff may contact her outpatient orthopedic surgeon for any recommendations as well and review in comparison of her previous x-ray with the current one today. Review of Systems: Pain in right forearm. No CV, , pulmonary, eye, ENT system symptoms on review. Mental Status Exam: The patient is reasonably oriented. Speech is coherent, little anxious, hyperverbal at times. Abstraction fair. Computation impaired. Language function intact. Attention span short. Mood and affect still anxious but improved, less depressed. No suicidal ideation. Laboratory Data: Reviewed. Impression: Major depressive disorder, recurrent, rule out psychotic features. Mild cognitive impairment. Anxiety disorder unspecified. Plan: Continue current psychotropics. Assessment: Vital Signs/I&O: Vital Signs Date Time Temp Pulse Resp B/P (MAP) Pulse Ox O2 Delivery O2 Flow Rate FiO2 10/12/21 05:59 97.8 74 16 132/70 (90) 96 I & O 10/11/21 10/11/21 10/12/21 15:00 23:00 07:00 Intake Total 720 ml 240 ml 120 ml Balance 720 ml 240 ml 120 ml Current Medications: Meds: Current Medications Medications (Trade) Dose Ordered Sig/Mayito Route PRN Reason Start Time Stop Time Status Last Admin Dose Admin Acetaminophen (Tylenol) 650 mg PRN Q6HRS PRN PO MILD PAIN / TEMP > 100.3'F 10/03/21 17:00 10/10/21 21:11 Multi-Ingredient Ointment (Analgesic [place]) 1 claudia PRN QID PRN TP MUSCLE PAIN 10/03/21 17:00 Al Hydroxide/Mg Hydroxide (Mylanta Plus Xs) 15 ml PRN AFTMEALHC PRN PO DYSPEPSIA 10/03/21 17:00 Magnesium Hydroxide (Milk Of Magnesia) 2,400 mg PRN QHS PRN PO CONSTIPATION 10/03/21 17:00 10/08/21 21:28 Celecoxib (CeleBREX) 200 mg DAILY PO 10/04/21 09:00 UNV Aspirin (Aspirin Chewable) 81 mg DAILYWBKFT PO 10/04/21 08:00 UNV Alprazolam (Xanax) 0.25 mg QHS ONCE PO 10/03/21 21:00 10/03/21 21:01 UNV Atorvastatin Calcium (Lipitor) 40 mg DAILY PO 10/04/21 09:00 UNV Lisinopril (Prinivil) 5 mg DAILY PO 10/04/21 09:00 UNV Donepezil HCl (Aricept) 10 mg QHS PO 10/03/21 21:00 UNV Lidocaine (Lidoderm) 1 patch DAILY TD 10/04/21 09:00 UNV Miscellaneous (Lidoderm Patch Removal) 1 ea QHS 10/03/21 21:00 UNV Trazodone HCl (Desyrel) 25 mg PRN QHS PRN PO INSOMNIA, MAY REPEAT X1 10/03/21 19:45 Alprazolam (Xanax) 0.25 mg QHS PO 10/03/21 21:00 10/11/21 20:52 Aspirin (Aspirin Enteric Coated) 81 mg DAILY PO 10/04/21 09:00 10/11/21 08:26 Donepezil HCl (Aricept) 10 mg QHS PO 10/03/21 21:00 10/11/21 20:52 Lisinopril (Prinivil) 5 mg DAILY PO 10/04/21 09:00 10/11/21 08:25 Atorvastatin Calcium (Lipitor) 40 mg DAILY PO 10/04/21 09:00 10/05/21 15:26 DC 10/04/21 09:01 Celecoxib (CeleBREX) 200 mg DAILY PO 10/04/21 09:00 10/11/21 08:25 Lidocaine (Lidoderm) 1 patch DAILY TP 10/04/21 09:00 10/09/21 15:44 DC 10/08/21 09:15 Multivitamins/ Calcium (Thera-M Plus) 1 tab DAILY PO 10/04/21 09:00 10/11/21 08:25 Miscellaneous (Lidoderm Patch Removal) 1 ea QHS MC 10/03/21 21:00 10/10/21 11:31 DC 10/08/21 21:00 Sertraline HCl (Zoloft) 25 mg DAILY PO 10/05/21 09:00 10/07/21 10:00 DC 10/07/21 09:09 Sertraline HCl (Zoloft) 50 mg DAILY PO 10/08/21 09:00 10/11/21 08:25 Atorvastatin Calcium (Lipitor) 40 mg HS PO 10/05/21 21:00 10/11/21 20:52 Lidocaine (Lidoderm) 1 patch PRN DAILY PRN TP PAIN 10/09/21 16:00 10/11/21 05:36 Miscellaneous (Lidoderm Patch Removal) 1 ea PRN QHS 10/10/21 21:00 Cetirizine HCl (ZyrTEC) 10 mg DAILY PO 10/12/21 09:00 I have reviewed the current psychotropics carefully including drug interactions. Risk benefit ratio favors no change other than as noted in my dictated progress note. Diagnosis: Problems: (1) Major depressive disorder, recurrent episode (2) Mild cognitive impairment (3) Anxiety disorder, unspecified NÉSTOR WONG MD Oct 12, 2021 07:30
[2021-10-12] MEDS: MULTIVITAMIN with MINERAL TABLET. PO SCH (08:58)
[2021-10-12] MEDS: LISINOPRIL 5 MG TABLET. PO SCH (08:58)
[2021-10-12] MEDS: SERTRALINE 50 MG TABLET. PO SCH (08:58)
[2021-10-12] MEDS: ASPIRIN ENTERIC COATED 81 MG TABLET.DR. PO SCH (08:58)
[2021-10-12] MEDS: CETIRIZINE HCL 10 MG TABLET PO SCH (08:59)
[2021-10-12] MEDS: CELECOXIB 100 MG CAPSULE PO SCH (08:59)
[2021-10-12] MEDS: ACETAMINOPHEN 325 MG TABLET PO PRN (08:59)
--- NOTE | 2021-10-12 15:08 | NUR ---
Nursing note: Pt has been pleasant, med compliant and cooperative this shift. She denies having any depression/SI, but c/o pain in her wrist that is relieved with tylenol. Pt is interactive with staff and peers. She is currently sitting quietly in her room looking out the window. Will continue to monitor.
[2021-10-12 15:59] VITALS: BP 112/63
[2021-10-12] MEDS: ATORVASTATIN CALCIUM 20 MG TABLET PO SCH (20:33)
[2021-10-12] MEDS: DONEPEZIL HCL 10 MG TABLET PO SCH (20:33)
[2021-10-12] MEDS: ALPRAZolam 0.25 MG TABLET PO SCH (20:33)
--- NOTE | 2021-10-12 21:00 | PDOC ---
Exam Note: Rip Note: Please also refer to the separate dictated note~for this date of service dictated separately.~Patient seen individually. Discussed the patient with Nursing staff reviewed the chart.~Reviewed interim history and current functioning. Reviewed vital signs,~Labs/ Radiology~and current medications noted below. Continue current treatment with the changes noted in the dictated addendum note Assessment: Vital Signs/I&O: Vital Signs Date Time Temp Pulse Resp B/P (MAP) Pulse Ox O2 Delivery O2 Flow Rate FiO2 10/12/21 15:59 97.8 77 18 112/63 (79) 96 Room Air I & O 10/11/21 10/11/21 10/12/21 15:00 23:00 07:00 Intake Total 720 ml 240 ml 120 ml Balance 720 ml 240 ml 120 ml Current Medications: Meds: Current Medications Medications (Trade) Dose Ordered Sig/Mayito Route PRN Reason Start Time Stop Time Status Last Admin Dose Admin Acetaminophen (Tylenol) 650 mg PRN Q6HRS PRN PO MILD PAIN / TEMP > 100.3'F 10/03/21 17:00 10/12/21 08:59 Multi-Ingredient Ointment (Analgesic [place]) 1 claudia PRN QID PRN TP MUSCLE PAIN 10/03/21 17:00 Al Hydroxide/Mg Hydroxide (Mylanta Plus Xs) 15 ml PRN AFTMEALHC PRN PO DYSPEPSIA 10/03/21 17:00 Magnesium Hydroxide (Milk Of Magnesia) 2,400 mg PRN QHS PRN PO CONSTIPATION 10/03/21 17:00 10/08/21 21:28 Celecoxib (CeleBREX) 200 mg DAILY PO 10/04/21 09:00 UNV Aspirin (Aspirin Chewable) 81 mg DAILYWBKFT PO 10/04/21 08:00 UNV Alprazolam (Xanax) 0.25 mg QHS ONCE PO 10/03/21 21:00 10/03/21 21:01 UNV Atorvastatin Calcium (Lipitor) 40 mg DAILY PO 10/04/21 09:00 UNV Lisinopril (Prinivil) 5 mg DAILY PO 10/04/21 09:00 UNV Donepezil HCl (Aricept) 10 mg QHS PO 10/03/21 21:00 UNV Lidocaine (Lidoderm) 1 patch DAILY TD 10/04/21 09:00 UNV Miscellaneous (Lidoderm Patch Removal) 1 ea QHS 10/03/21 21:00 UNV Trazodone HCl (Desyrel) 25 mg PRN QHS PRN PO INSOMNIA, MAY REPEAT X1 10/03/21 19:45 Alprazolam (Xanax) 0.25 mg QHS PO 10/03/21 21:00 10/12/21 20:33 Aspirin (Aspirin Enteric Coated) 81 mg DAILY PO 10/04/21 09:00 10/12/21 08:58 Donepezil HCl (Aricept) 10 mg QHS PO 10/03/21 21:00 10/12/21 20:33 Lisinopril (Prinivil) 5 mg DAILY PO 10/04/21 09:00 10/12/21 08:58 Atorvastatin Calcium (Lipitor) 40 mg DAILY PO 10/04/21 09:00 10/05/21 15:26 DC 10/04/21 09:01 Celecoxib (CeleBREX) 200 mg DAILY PO 10/04/21 09:00 10/12/21 08:59 Lidocaine (Lidoderm) 1 patch DAILY TP 10/04/21 09:00 10/09/21 15:44 DC 10/08/21 09:15 Multivitamins/ Calcium (Thera-M Plus) 1 tab DAILY PO 10/04/21 09:00 10/12/21 08:58 Miscellaneous (Lidoderm Patch Removal) 1 ea QHS 10/03/21 21:00 10/10/21 11:31 DC 10/08/21 21:00 Sertraline HCl (Zoloft) 25 mg DAILY PO 10/05/21 09:00 10/07/21 10:00 DC 10/07/21 09:09 Sertraline HCl (Zoloft) 50 mg DAILY PO 10/08/21 09:00 10/12/21 08:58 Atorvastatin Calcium (Lipitor) 40 mg HS PO 10/05/21 21:00 10/12/21 20:33 Lidocaine (Lidoderm) 1 patch PRN DAILY PRN TP PAIN 10/09/21 16:00 10/11/21 05:36 Miscellaneous (Lidoderm Patch Removal) 1 ea PRN QHS 10/10/21 21:00 Cetirizine HCl (ZyrTEC) 10 mg DAILY PO 10/12/21 09:00 10/12/21 08:59 Current Medications Medications (Trade) Dose Ordered Sig/Mayito Route PRN Reason Start Time Stop Time Status Last Admin Dose Admin Cetirizine HCl (ZyrTEC) 10 mg DAILY PO 10/12/21 09:00 10/12/21 08:59 I have reviewed the current psychotropics carefully including drug interactions. Risk benefit ratio favors no change other than as noted in my dictated progress note. Diagnosis: Problems: (1) Major depressive disorder, recurrent episode (2) Mild cognitive impairment (3) Anxiety disorder, unspecified NÉSTOR WONG MD Oct 12, 2021 21:00
--- NOTE | 2021-10-13 01:43 | NUR ---
Nursing Note The patient was located in her room for her assessment and medication pass. The patient was alert to name, year and location. The patient took her medication whole. The patient received a shower and was pleasant and cooperative during her shower. The patient is currently sleeping in her room.
[2021-10-13 05:50] VITALS: BP 120/62
--- NOTE | 2021-10-13 07:57 | PDOC ---
Exam Note: Rip Note: This note is a late entry for 10/12/2021 covers elements not covered in my initial note. Subjective: The patient was seen individually in the evening of 10/12/2021 with Melly HINKLE, discussed and reviewed the chart. The patient slept 7-3/4 hours previous night. She has been pleasant, smiling. She still complains of pain right upper extremity status post fall and prior fracture. I have discussed with nursing staff to coordinate with her outpatient orthopedic surgeon for comparison of prior x-ray of the right upper extremity and the recent x-ray done post fall in the hospital. Review of Systems: Other than the above, ambulation impaired. No CV, , pulmonary, eye, ENT system symptoms on review. Mental Status Exam: The patient is reasonably oriented. Speech is coherent, low in volume rate and rhythm. Abstraction fair. Computation impaired. Language function intact. Mood and affect still somewhat anxious but improved. Laboratory Data: Reviewed. Impression: Major depressive disorder, recurrent, rule out psychotic features. Mild cognitive impairment. Anxiety disorder unspecified. Plan: Continue current psychotropics. She denies suicidal ideation. We will increase Zoloft to 50 mg a day and gradually further increase as tolerated. Assessment: Vital Signs/I&O: Vital Signs Date Time Temp Pulse Resp B/P (MAP) Pulse Ox O2 Delivery O2 Flow Rate FiO2 10/13/21 05:50 98.2 66 18 120/62 (81) 97 10/12/21 15:59 Room Air I & O 10/12/21 10/12/21 10/13/21 15:00 23:00 07:00 Intake Total 720 ml 360 ml Balance 720 ml 360 ml Current Medications: Meds: Current Medications Medications (Trade) Dose Ordered Sig/Mayito Route PRN Reason Start Time Stop Time Status Last Admin Dose Admin Acetaminophen (Tylenol) 650 mg PRN Q6HRS PRN PO MILD PAIN / TEMP > 100.3'F 10/03/21 17:00 10/12/21 08:59 Multi-Ingredient Ointment (Analgesic [place]) 1 claudia PRN QID PRN TP MUSCLE PAIN 10/03/21 17:00 Al Hydroxide/Mg Hydroxide (Mylanta Plus Xs) 15 ml PRN AFTMEALHC PRN PO DYSPEPSIA 10/03/21 17:00 Magnesium Hydroxide (Milk Of Magnesia) 2,400 mg PRN QHS PRN PO CONSTIPATION 10/03/21 17:00 10/08/21 21:28 Celecoxib (CeleBREX) 200 mg DAILY PO 10/04/21 09:00 UNV Aspirin (Aspirin Chewable) 81 mg DAILYWBKFT PO 10/04/21 08:00 UNV Alprazolam (Xanax) 0.25 mg QHS ONCE PO 10/03/21 21:00 10/03/21 21:01 UNV Atorvastatin Calcium (Lipitor) 40 mg DAILY PO 10/04/21 09:00 UNV Lisinopril (Prinivil) 5 mg DAILY PO 10/04/21 09:00 UNV Donepezil HCl (Aricept) 10 mg QHS PO 10/03/21 21:00 UNV Lidocaine (Lidoderm) 1 patch DAILY TD 10/04/21 09:00 UNV Misc[facility] ([facility]) [facility] 10/03/21 21:00 UNV Trazodone HCl (Desyrel) 25 mg PRN QHS PRN PO INSOMNIA, MAY REPEAT X1 10/03/21 19:45 Alprazolam (Xanax) 0.25 mg QHS PO 10/03/21 21:00 10/12/21 20:33 Aspirin (Aspirin Enteric Coated) 81 mg DAILY PO 10/04/21 09:00 10/12/21 08:58 Donepezil HCl (Aricept) 10 mg QHS PO 10/03/21 21:00 10/12/21 20:33 Lisinopril (Prinivil) 5 mg DAILY PO 10/04/21 09:00 10/12/21 08:58 Atorvastatin Calcium (Lipitor) 40 mg DAILY PO 10/04/21 09:00 10/05/21 15:26 DC 10/04/21 09:01 Celecoxib (CeleBREX) 200 mg DAILY PO 10/04/21 09:00 10/12/21 08:59 Lidocaine (Lidoderm) 1 patch DAILY TP 10/04/21 09:00 10/09/21 15:44 DC 10/08/21 09:15 Multivitamins/ Calcium (Thera-M Plus) 1 tab DAILY PO 10/04/21 09:00 10/12/21 08:58 Miscellaneous (Lidoderm Patch Removal) 1 ea QHS MC 10/03/21 21:00 10/10/21 11:31 DC 10/08/21 21:00 Sertraline HCl (Zoloft) 25 mg DAILY PO 10/05/21 09:00 10/07/21 10:00 DC 10/07/21 09:09 Sertraline HCl (Zoloft) 50 mg DAILY PO 10/08/21 09:00 10/12/21 08:58 Atorvastatin Calcium (Lipitor) 40 mg HS PO 10/05/21 21:00 10/12/21 20:33 Lidocaine (Lidoderm) 1 patch PRN DAILY PRN TP PAIN 10/09/21 16:00 10/11/21 05:36 Miscellaneous ([facility]oderm [facility] Removal) [facility] 10/10/21 21:00 Cetirizine HCl (ZyrTEC) 10 mg DAILY PO 10/12/21 09:00 10/12/21 08:59 Current Medications Medications (Trade) Dose Ordered Sig/Mayito Route PRN Reason Start Time Stop Time Status Last Admin Dose Admin Cetirizine HCl (ZyrTEC) 10 mg DAILY PO 10/12/21 09:00 10/12/21 08:59 I have reviewed the current psychotropics carefully including drug interactions. Risk benefit ratio favors no change other than as noted in my dictated progress note. Diagnosis: Problems: (1) Major depressive disorder, recurrent episode (2) Mild cognitive impairment (3) Anxiety disorder, unspecified NÉSTOR WONG MD Oct 13, 2021 07:57
[2021-10-13] MEDS: ASPIRIN ENTERIC COATED 81 MG TABLET.DR. PO SCH (08:29)
[2021-10-13] MEDS: LISINOPRIL 5 MG TABLET. PO SCH (08:30)
[2021-10-13] MEDS: ACETAMINOPHEN 325 MG TABLET PO PRN ×3 (08:30→22:24)
[2021-10-13] MEDS: CETIRIZINE HCL 10 MG TABLET PO SCH (08:30)
[2021-10-13] MEDS: MULTIVITAMIN with MINERAL TABLET. PO SCH (08:30)
[2021-10-13] MEDS: CELECOXIB 100 MG CAPSULE PO SCH (08:30)
[2021-10-13] MEDS: SERTRALINE 50 MG TABLET. PO SCH (08:31)
--- NOTE | 2021-10-13 11:18 | NUR ---
WEEKLY ACTIVITY THERAPY NOTE Date of Admission: 10/03/21 Date of AT Assessment: 10/06 Precipitating behaviors that initiated intake and admission:paranoid, SI, wants to , sundowning, agitated Goal aimed: increase socialization and engagement Initial Goal: Pt will participate in at least three Activity Therapy sessions per week Weekly progress towards goal: moved to group therapy side 10/11, 12/01 Group participation level: 2 full Weekly highlights: participated in all exercises and finish the phrase questions Sunday morning Behaviors observed: pleasant, calm Plan: no change to goal Beneficial adaptations:
--- NOTE | 2021-10-13 14:41 | NUR ---
Nursing note: Pt has been pleasant, med compliant and cooperative this shift. She denies having any depression/SI, but c/o pain in her wrist that is relieved with tylenol. She reports "I've never felt so great both physically and mentally." Pt is interactive with staff and peers. She is currently sitting quietly in the day room. Will continue to monitor.
--- NOTE | 2021-10-13 15:45 | NUR ---
BRIANNA spoke with pt dtr, Jaylene, to follow up on the treatment team discussion on placement. Jaylene and her siblings have found a few places in the [facility] and SW gave a couple more options to look into for placement. BRIANNA noted that realistically, it could be another week by the time they secure everything and get pt moved. It may not be before [place] but the week of New Years [place]. BRIANNA and Jaylene also noted that pt has not fully grasped the understanding that she is not able to go home and live with her , despite her telling her that he can no longer physically care for her. Jaylene will make sure to contact pt and discuss this with her, knowing that it may create some behaviors. BRIANNA noted that was okay, considering she is in the best place to have behaviors if there are any. BRIANNA and Jaylene will continue to work with one another re: placement.
[2021-10-13 15:49] VITALS: BP 117/57
--- NOTE | 2021-10-13 17:35 | NUR ---
Treatment team note: Pt dtr/DENNY, Jaylene, participated in treatment team via phone. Pt is eating 50% of meals and sleeping on average 7.25 hours per night. Pt is mostly calm and cooperative with staff direction and medications. Pt does have pain complaints of wrist pain and will be instructed to follow up with ortho on an outpt basis. Pt has attended two groups with full participation. Pt dtr reports in conversations with pt., she has noted that she wants to live her life and handle her own affairs. She also told her dtr that she no longer wishes for her children to attend doctor appointments with her either. Pt also told her children that she only fell on Sunday is because physical therapy worked her too hard; despite nursing staff reporting her gait not being too steady prior to therapy. Pt will receive a small dose of Seroquel 12.5mg at HS and starting on Sunday Namenda 5mg q AM. Pt family will continue to look at AL facilities in which SW will also work with the family on making appropriate ones are looked into.
--- NOTE | 2021-10-13 21:06 | PDOC ---
Exam Note: Rip Note: Please also refer to the separate dictated note~for this date of service dictated separately.~Patient seen individually. Discussed the patient with Nursing staff reviewed the chart.~Reviewed interim history and current functioning. Reviewed vital signs,~Labs/ Radiology~and current medications noted below. Continue current treatment with the changes noted in the dictated addendum note Assessment: Vital Signs/I&O: Vital Signs Date Time Temp Pulse Resp B/P (MAP) Pulse Ox O2 Delivery O2 Flow Rate FiO2 10/13/21 15:49 98.2 70 18 117/57 (77) 97 Room Air I & O 10/12/21 10/12/21 10/13/21 15:00 23:00 07:00 Intake Total 720 ml 360 ml Balance 720 ml 360 ml Current Medications: Meds: Current Medications Medications (Trade) Dose Ordered Sig/Mayito Route PRN Reason Start Time Stop Time Status Last Admin Dose Admin Acetaminophen (Tylenol) 650 mg PRN Q6HRS PRN PO MILD PAIN / TEMP > 100.3'F 10/03/21 17:00 10/13/21 16:20 Multi-Ingredient Ointment (Analgesic [place]) 1 claudia PRN QID PRN TP MUSCLE PAIN 10/03/21 17:00 Al Hydroxide/Mg Hydroxide (Mylanta Plus Xs) 15 ml PRN AFTMEALHC PRN PO DYSPEPSIA 10/03/21 17:00 Magnesium Hydroxide (Milk Of Magnesia) 2,400 mg PRN QHS PRN PO CONSTIPATION 10/03/21 17:00 10/08/21 21:28 Celecoxib (CeleBREX) 200 mg DAILY PO 10/04/21 09:00 UNV Aspirin (Aspirin Chewable) 81 mg DAILYWBKFT PO 10/04/21 08:00 UNV Alprazolam (Xanax) 0.25 mg QHS ONCE PO 10/03/21 21:00 10/03/21 21:01 UNV Atorvastatin Calcium (Lipitor) 40 mg DAILY PO 10/04/21 09:00 UNV Lisinopril (Prinivil) 5 mg DAILY PO 10/04/21 09:00 UNV Donepezil HCl (Aricept) 10 mg QHS PO 10/03/21 21:00 UNV Lidocaine (Lidoderm) 1 patch DAILY TD 10/04/21 09:00 UNV Miscellaneous (Lidoderm Patch Removal) 1 ea QHS 10/03/21 21:00 UNV Trazodone HCl (Desyrel) 25 mg PRN QHS PRN PO INSOMNIA, MAY REPEAT X1 10/03/21 19:45 Alprazolam (Xanax) 0.25 mg QHS PO 10/03/21 21:00 10/12/21 20:33 Aspirin (Aspirin Enteric Coated) 81 mg DAILY PO 10/04/21 09:00 10/13/21 08:29 Donepezil HCl (Aricept) 10 mg QHS PO 10/03/21 21:00 10/12/21 20:33 Lisinopril (Prinivil) 5 mg DAILY PO 10/04/21 09:00 10/13/21 08:30 Atorvastatin Calcium (Lipitor) 40 mg DAILY PO 10/04/21 09:00 10/05/21 15:26 DC 10/04/21 09:01 Celecoxib (CeleBREX) 200 mg DAILY PO 10/04/21 09:00 10/13/21 08:30 Lidocaine (Lidoderm) 1 patch DAILY TP 10/04/21 09:00 10/09/21 15:44 DC 10/08/21 09:15 Multivitamins/ Calcium (Thera-M Plus) 1 tab DAILY PO 10/04/21 09:00 10/13/21 08:30 Miscellaneous (Lidoderm Patch Removal) 1 ea QHS 10/03/21 21:00 10/10/21 11:31 DC 10/08/21 21:00 Sertraline HCl (Zoloft) 25 mg DAILY PO 10/05/21 09:00 10/07/21 10:00 DC 10/07/21 09:09 Sertraline HCl (Zoloft) 50 mg DAILY PO 10/08/21 09:00 10/13/21 11:51 DC 10/13/21 08:31 Atorvastatin Calcium (Lipitor) 40 mg HS PO 10/05/21 21:00 10/12/21 20:33 Lidocaine (Lidoderm) 1 patch PRN DAILY PRN TP PAIN 10/09/21 16:00 10/11/21 05:36 Miscellaneous (Lidoderm Patch Removal) 1 ea PRN QHS 10/10/21 21:00 Cetirizine HCl (ZyrTEC) 10 mg DAILY PO 10/12/21 09:00 10/13/21 08:30 Sertraline HCl (Zoloft) 75 mg DAILY PO 10/14/21 09:00 Quetiapine Fumarate (SEROquel) 12.5 mg QHS PO 10/13/21 21:00 Memantine (Namenda) 5 mg DAILY PO 10/15/21 09:00 I have reviewed the current psychotropics carefully including drug interactions. Risk benefit ratio favors no change other than as noted in my dictated progress note. Diagnosis: Problems: (1) Major depressive disorder, recurrent episode (2) Mild cognitive impairment (3) Anxiety disorder, unspecified NÉSTOR WONG MD Oct 13, 2021 21:06
[2021-10-13] MEDS: ATORVASTATIN CALCIUM 20 MG TABLET PO SCH (21:21)
[2021-10-13] MEDS: DONEPEZIL HCL 10 MG TABLET PO SCH (21:21)
[2021-10-13] MEDS: ALPRAZolam 0.25 MG TABLET PO SCH (21:22)
[2021-10-13] MEDS: QUEtiapine 25 MG TABLET. PO SCH (21:22)
--- NOTE | 2021-10-14 00:49 | NUR ---
Patient has been pleasant and calm. She asked for assistance to transfer into her wheelchair from bed to go to bathroom. Patient had a fall and stated she doesn't want to fall again. She is cautious when transferring. Patient reports R. arm pain that radiates to her shoulder, PRN tylenol provided at 2200 per order.
[2021-10-14 06:06] VITALS: BP 121/71
--- NOTE | 2021-10-14 06:54 | PDOC ---
Exam Note: Rip Note: This note is a late entry for 10/13/2021 covers elements not covered in my initial note. Subjective: The patient was reviewed at treatment team meeting individually in the morning on 10/13/2021 with Allyson Robb, Eli Cook, and Katia Jesus (manager social media), Belem Benoit ([employer]), Sury, activity therapy, and Melly HINKLE, discussed and reviewed the chart. The patient slept 7- 3/4 hours previous night. Her daughter Justina who is the pharmacist attended the treatment team meeting. We had a lengthy discussion about the patients diagnosis, progress. Family is concerned that the patient is dismissive of the families involved in her care and has told the family she can do everything for herself and they do not need to have anything to do with her. Appetite is 50%. She has attended 2 groups in the past week. She is compliant with medications. Review of Systems: She does complain of pain in her wrist. We will check with outpatient orthopedic doctor if anything else needs to be addressed with her right forearm and we will defer to Dr. Julien. Ambulation impaired. No CV, , pulmonary, eye, ENT system symptoms on review. Mental Status Exam: The patient is reasonably oriented. Speech is coherent, little pressured. Abstraction fair. Computation impaired. Language function intact. Mood and affect still somewhat anxious. No suicidal or homicidal ideation. Laboratory Data: Reviewed. Impression: Major depressive disorder, recurrent, rule out psychotic features. Mild cognitive impairment. Anxiety disorder unspecified. Plan: We will go ahead and start Seroquel 12.5 mg p.o. h.s. Increase Zoloft to 75 mg a day and then in 2 days start Namenda 5 mg a day for one week and 5 mg b.i.d. Adjust further as clinically indicated. Assessment: Vital Signs/I&O: Vital Signs Date Time Temp Pulse Resp B/P (MAP) Pulse Ox O2 Delivery O2 Flow Rate FiO2 10/14/21 06:06 97.9 77 17 121/71 (88) 97 Room Air I & O 10/13/21 10/13/21 10/14/21 15:00 23:00 07:00 Intake Total 840 ml 600 ml Balance 840 ml 600 ml Current Medications: Meds: Current Medications Medications (Trade) Dose Ordered Sig/Mayito Route PRN Reason Start Time Stop Time Status Last Admin Dose Admin Acetaminophen (Tylenol) 650 mg PRN Q6HRS PRN PO MILD PAIN / TEMP > 100.3'F 10/03/21 17:00 10/13/21 22:24 Multi-Ingredient Ointment (Analgesic [place]) 1 claudia PRN QID PRN TP MUSCLE PAIN 10/03/21 17:00 Al Hydroxide/Mg Hydroxide (Mylanta Plus Xs) 15 ml PRN AFTMEALHC PRN PO DYSPEPSIA 10/03/21 17:00 Magnesium Hydroxide (Milk Of Magnesia) 2,400 mg PRN QHS PRN PO CONSTIPATION 10/03/21 17:00 10/08/21 21:28 Celecoxib (CeleBREX) 200 mg DAILY PO 10/04/21 09:00 UNV Aspirin (Aspirin Chewable) 81 mg DAILYWBKFT PO 10/04/21 08:00 UNV Alprazolam (Xanax) 0.25 mg QHS ONCE PO 10/03/21 21:00 10/03/21 21:01 UNV Atorvastatin Calcium (Lipitor) 40 mg DAILY PO 10/04/21 09:00 UNV Lisinopril (Prinivil) 5 mg DAILY PO 10/04/21 09:00 UNV Donepezil HCl (Aricept) 10 mg QHS PO 10/03/21 21:00 UNV Lidocaine (Lidoderm) 1 patch DAILY TD 10/04/21 09:00 UNV Miscellaneous (Lidoderm Patch Removal) 1 ea QHS MC 10/03/21 21:00 UNV Trazodone HCl (Desyrel) 25 mg PRN QHS PRN PO INSOMNIA, MAY REPEAT X1 10/03/21 19:45 Alprazolam (Xanax) 0.25 mg QHS PO 10/03/21 21:00 10/13/21 21:22 Aspirin (Aspirin Enteric Coated) 81 mg DAILY PO 10/04/21 09:00 10/13/21 08:29 Donepezil HCl (Aricept) 10 mg QHS PO 10/03/21 21:00 10/13/21 21:21 Lisinopril (Prinivil) 5 mg DAILY PO 10/04/21 09:00 10/13/21 08:30 Atorvastatin Calcium (Lipitor) 40 mg DAILY PO 10/04/21 09:00 10/05/21 15:26 DC 10/04/21 09:01 Celecoxib (CeleBREX) 200 mg DAILY PO 10/04/21 09:00 10/13/21 08:30 Lidocaine (Lidoderm) 1 patch DAILY TP 10/04/21 09:00 10/09/21 15:44 DC 10/08/21 09:15 Multivitamins/ Calcium (Thera-M Plus) 1 tab DAILY PO 10/04/21 09:00 10/13/21 08:30 Miscellaneous (Lidoderm Patch Removal) 1 ea QHS MC 10/03/21 21:00 10/10/21 11:31 DC 10/08/21 21:00 Sertraline HCl (Zoloft) 25 mg DAILY PO 10/05/21 09:00 10/07/21 10:00 DC 10/07/21 09:09 Sertraline HCl (Zoloft) 50 mg DAILY PO 10/08/21 09:00 10/13/21 11:51 DC 10/13/21 08:31 Atorvastatin Calcium (Lipitor) 40 mg HS PO 10/05/21 21:00 10/13/21 21:21 Lidocaine (Lidoderm) 1 patch PRN DAILY PRN TP PAIN 10/09/21 16:00 10/11/21 05:36 Miscellaneous (Lidoderm Patch Removal) 1 ea PRN QHS 10/10/21 21:00 Cetirizine HCl (ZyrTEC) 10 mg DAILY PO 10/12/21 09:00 10/13/21 08:30 Sertraline HCl (Zoloft) 75 mg DAILY PO 10/14/21 09:00 Quetiapine Fumarate (SEROquel) 12.5 mg QHS PO 10/13/21 21:00 10/13/21 21:22 Memantine (Namenda) 5 mg DAILY PO 10/15/21 09:00 Current Medications Medications (Trade) Dose Ordered Sig/Mayito Route PRN Reason Start Time Stop Time Status Last Admin Dose Admin Quetiapine Fumarate (SEROquel) 12.5 mg QHS PO 10/13/21 21:00 10/13/21 21:22 I have reviewed the current psychotropics carefully including drug interactions. Risk benefit ratio favors no change other than as noted in my dictated progress note. Diagnosis: Problems: (1) Major depressive disorder, recurrent episode (2) Mild cognitive impairment (3) Anxiety disorder, unspecified NÉSTOR WONG MD Oct 14, 2021 06:54
[2021-10-14] MEDS: CETIRIZINE HCL 10 MG TABLET PO SCH (08:34)
[2021-10-14] MEDS: MULTIVITAMIN with MINERAL TABLET. PO SCH (08:34)
[2021-10-14] MEDS: LISINOPRIL 5 MG TABLET. PO SCH (08:34)
[2021-10-14] MEDS: ASPIRIN ENTERIC COATED 81 MG TABLET.DR. PO SCH (08:34)
[2021-10-14] MEDS: CELECOXIB 100 MG CAPSULE PO SCH (08:35)
[2021-10-14] MEDS: SERTRALINE 50 MG TABLET. PO SCH (09:00)
[2021-10-14] MEDS: ACETAMINOPHEN 325 MG TABLET PO PRN ×2 (09:00→20:17)
--- NOTE | 2021-10-14 09:56 | NUR ---
Pt pleasant and calm, she completed breakfast and shortly after worked with rehab. She is compliant with whole medications and is receptive to education provided. She denies SI/HI/VH/AH, absent of delusional behaviors or statements. She is appropriate in her interactions with others and is absent of disruptive behaviors. She reports 9/10 pain in the R hand and shoulder, PRN Acetaminophen 650 mg PO administered at her request, reassessment pending. Plan of care continues, will pass to next shift.
[2021-10-14 15:26] VITALS: BP 112/66
[2021-10-14] MEDS: DONEPEZIL HCL 10 MG TABLET PO SCH (20:16)
[2021-10-14] MEDS: ATORVASTATIN CALCIUM 20 MG TABLET PO SCH (20:16)
[2021-10-14] MEDS: ALPRAZolam 0.25 MG TABLET PO SCH (20:18)
[2021-10-14] MEDS: QUEtiapine 25 MG TABLET. PO SCH (20:18)
--- NOTE | 2021-10-14 21:06 | PDOC ---
Exam Note: Rip Note: Please also refer to the separate dictated note~for this date of service dictated separately.~Patient seen individually. Discussed the patient with Nursing staff reviewed the chart.~Reviewed interim history and current functioning. Reviewed vital signs,~Labs/ Radiology~and current medications noted below. Continue current treatment with the changes noted in the dictated addendum note Assessment: Vital Signs/I&O: Vital Signs Date Time Temp Pulse Resp B/P (MAP) Pulse Ox O2 Delivery O2 Flow Rate FiO2 10/14/21 15:26 98.1 80 18 112/66 (81) 93 10/14/21 06:06 Room Air I & O 10/13/21 10/13/21 10/14/21 15:00 23:00 07:00 Intake Total 840 ml 600 ml Balance 840 ml 600 ml Current Medications: Meds: Current Medications Medications (Trade) Dose Ordered Sig/Mayito Route PRN Reason Start Time Stop Time Status Last Admin Dose Admin Acetaminophen (Tylenol) 650 mg PRN Q6HRS PRN PO MILD PAIN / TEMP > 100.3'F 10/03/21 17:00 10/14/21 20:17 Multi-Ingredient Ointment (Analgesic [place]) 1 claudia PRN QID PRN TP MUSCLE PAIN 10/03/21 17:00 Al Hydroxide/Mg Hydroxide (Mylanta Plus Xs) 15 ml PRN AFTMEALHC PRN PO DYSPEPSIA 10/03/21 17:00 Magnesium Hydroxide (Milk Of Magnesia) 2,400 mg PRN QHS PRN PO CONSTIPATION 10/03/21 17:00 10/08/21 21:28 Celecoxib (CeleBREX) 200 mg DAILY PO 10/04/21 09:00 UNV Aspirin (Aspirin Chewable) 81 mg DAILYWBKFT PO 10/04/21 08:00 UNV Alprazolam (Xanax) 0.25 mg QHS ONCE PO 10/03/21 21:00 10/03/21 21:01 UNV Atorvastatin Calcium (Lipitor) 40 mg DAILY PO 10/04/21 09:00 UNV Lisinopril (Prinivil) 5 mg DAILY PO 10/04/21 09:00 UNV Donepezil HCl (Aricept) 10 mg QHS PO 10/03/21 21:00 UNV Lidocaine (Lidoderm) 1 patch DAILY TD 10/04/21 09:00 UNV Miscellaneous (Lidoderm Patch Removal) 1 ea QHS 10/03/21 21:00 UNV Trazodone HCl (Desyrel) 25 mg PRN QHS PRN PO INSOMNIA, MAY REPEAT X1 10/03/21 19:45 Alprazolam (Xanax) 0.25 mg QHS PO 10/03/21 21:00 10/14/21 20:18 Aspirin (Aspirin Enteric Coated) 81 mg DAILY PO 10/04/21 09:00 10/14/21 08:34 Donepezil HCl (Aricept) 10 mg QHS PO 10/03/21 21:00 10/14/21 20:16 Lisinopril (Prinivil) 5 mg DAILY PO 10/04/21 09:00 10/14/21 08:34 Atorvastatin Calcium (Lipitor) 40 mg DAILY PO 10/04/21 09:00 10/05/21 15:26 DC 10/04/21 09:01 Celecoxib (CeleBREX) 200 mg DAILY PO 10/04/21 09:00 10/14/21 08:35 Lidocaine (Lidoderm) 1 patch DAILY TP 10/04/21 09:00 10/09/21 15:44 DC 10/08/21 09:15 Multivitamins/ Calcium (Thera-M Plus) 1 tab DAILY PO 10/04/21 09:00 10/14/21 08:34 Miscellaneous (Lidoderm Patch Removal) 1 ea QHS 10/03/21 21:00 10/10/21 11:31 DC 10/08/21 21:00 Sertraline HCl (Zoloft) 25 mg DAILY PO 10/05/21 09:00 10/07/21 10:00 DC 10/07/21 09:09 Sertraline HCl (Zoloft) 50 mg DAILY PO 10/08/21 09:00 10/13/21 11:51 DC 10/13/21 08:31 Atorvastatin Calcium (Lipitor) 40 mg HS PO 10/05/21 21:00 10/14/21 20:16 Lidocaine (Lidoderm) 1 patch PRN DAILY PRN TP PAIN 10/09/21 16:00 10/11/21 05:36 Miscellaneous (Lidoderm Patch Removal) 1 ea PRN QHS 10/10/21 21:00 Cetirizine HCl (ZyrTEC) 10 mg DAILY PO 10/12/21 09:00 10/14/21 08:34 Sertraline HCl (Zoloft) 75 mg DAILY PO 10/14/21 09:00 10/14/21 09:00 Quetiapine Fumarate (SEROquel) 12.5 mg QHS PO 10/13/21 21:00 10/14/21 20:18 Memantine (Namenda) 5 mg DAILY PO 10/15/21 09:00 Current Medications Medications (Trade) Dose Ordered Sig/Mayito Route PRN Reason Start Time Stop Time Status Last Admin Dose Admin Sertraline HCl (Zoloft) 75 mg DAILY PO 10/14/21 09:00 10/14/21 09:00 I have reviewed the current psychotropics carefully including drug interactions. Risk benefit ratio favors no change other than as noted in my dictated progress note. Diagnosis: Problems: (1) Major depressive disorder, recurrent episode (2) Mild cognitive impairment (3) Anxiety disorder, unspecified NÉSTOR WONG MD Oct 14, 2021 21:06
--- NOTE | 2021-10-14 22:00 | NUR ---
Patient is located in her room on assumption of care, sitting in her wheelchair and enjoying a conversation with her roommate. She is alert and oriented x4. States that she feels much less depressed and denies any current feelings of SI. She was compliant with assessments and took her medications whole. She complained of 7/10 right wrist pain and requested PRN Tylenol, which she received with her HS meds. Patient appears to be sleeping comfortably at present time. Will continue to monitor.
[2021-10-15 05:55] VITALS: BP 127/72
--- NOTE | 2021-10-15 07:58 | PDOC ---
Exam Note: Rip Note: This note is a late entry for 10/14/2021 covers elements not covered in my initial note. Subjective: The patient was seen individually in the evening of 10/14/2021 with Lazara HINKLE, discussed and reviewed the chart. The patient slept 7-1/2 hours previous night. Overall she is doing quite well. Nursing staff states she is pleasant, interactive. Dr. Julien is following up on her right forearm fracture with the orthopedic surgeon tomorrow. Review of Systems: Positive for some discomfort right forearm. No CV, , pulmonary, eye, ENT system symptoms on review. Mental Status Exam: The patient is oriented to herself and situation. Speech is coherent, has some latency, little pressured at times due to anxiety. Abstraction fair. Computation impaired. Language function intact. Mood and affect somewhat anxious, labile but improved. Laboratory Data: Reviewed. Impression: Major depressive disorder, recurrent, rule out psychotic features. Mild cognitive impairment. Anxiety disorder unspecified. Plan: Continue current psychotropics. Adjust as clinically indicated. Assessment: Vital Signs/I&O: Vital Signs Date Time Temp Pulse Resp B/P (MAP) Pulse Ox O2 Delivery O2 Flow Rate FiO2 10/15/21 05:55 96.9 72 20 127/72 (90) 93 Room Air I & O 10/14/21 10/14/21 10/15/21 15:00 23:00 07:00 Intake Total 480 ml 240 ml 120 ml Balance 480 ml 240 ml 120 ml Current Medications: Meds: Current Medications Medications (Trade) Dose Ordered Sig/Mayito Route PRN Reason Start Time Stop Time Status Last Admin Dose Admin Acetaminophen (Tylenol) 650 mg PRN Q6HRS PRN PO MILD PAIN / TEMP > 100.3'F 10/03/21 17:00 10/14/21 20:17 Multi-Ingredient Ointment (Analgesic [place]) 1 claudia PRN QID PRN TP MUSCLE PAIN 10/03/21 17:00 Al Hydroxide/Mg Hydroxide (Mylanta Plus Xs) 15 ml PRN AFTMEALHC PRN PO DYSPEPSIA 10/03/21 17:00 Magnesium Hydroxide (Milk Of Magnesia) 2,400 mg PRN QHS PRN PO CONSTIPATION 10/03/21 17:00 10/08/21 21:28 Celecoxib (CeleBREX) 200 mg DAILY PO 10/04/21 09:00 UNV Aspirin (Aspirin Chewable) 81 mg DAILYWBKFT PO 10/04/21 08:00 UNV Alprazolam (Xanax) 0.25 mg QHS ONCE PO 10/03/21 21:00 10/03/21 21:01 UNV Atorvastatin Calcium (Lipitor) 40 mg DAILY PO 10/04/21 09:00 UNV Lisinopril (Prinivil) 5 mg DAILY PO 10/04/21 09:00 UNV Donepezil HCl (Aricept) 10 mg QHS PO 10/03/21 21:00 UNV Lidocaine (Lidoderm) 1 patch DAILY TD 10/04/21 09:00 UNV Miscellaneous (Lidoderm Patch Removal) 1 ea QHS MC 10/03/21 21:00 UNV Trazodone HCl (Desyrel) 25 mg PRN QHS PRN PO INSOMNIA, MAY REPEAT X1 10/03/21 19:45 Alprazolam (Xanax) 0.25 mg QHS PO 10/03/21 21:00 10/14/21 20:18 Aspirin (Aspirin Enteric Coated) 81 mg DAILY PO 10/04/21 09:00 10/14/21 08:34 Donepezil HCl (Aricept) 10 mg QHS PO 10/03/21 21:00 10/14/21 20:16 Lisinopril (Prinivil) 5 mg DAILY PO 10/04/21 09:00 10/14/21 08:34 Atorvastatin Calcium (Lipitor) 40 mg DAILY PO 10/04/21 09:00 10/05/21 15:26 DC 10/04/21 09:01 Celecoxib (CeleBREX) 200 mg DAILY PO 10/04/21 09:00 10/14/21 08:35 Lidocaine (Lidoderm) 1 patch DAILY TP 10/04/21 09:00 10/09/21 15:44 DC 10/08/21 09:15 Multivitamins/ Calcium (Thera-M Plus) 1 tab DAILY PO 10/04/21 09:00 10/14/21 08:34 Miscellaneous (Lidoderm Patch Removal) 1 ea QHS MC 10/03/21 21:00 10/10/21 11:31 DC 10/08/21 21:00 Sertraline HCl (Zoloft) 25 mg DAILY PO 10/05/21 09:00 10/07/21 10:00 DC 10/07/21 09:09 Sertraline HCl (Zoloft) 50 mg DAILY PO 10/08/21 09:00 10/13/21 11:51 DC 10/13/21 08:31 Atorvastatin Calcium (Lipitor) 40 mg HS PO 10/05/21 21:00 10/14/21 20:16 Lidocaine (Lidoderm) 1 patch PRN DAILY PRN TP PAIN 10/09/21 16:00 10/11/21 05:36 Miscellaneous (Lidoderm Patch Removal) 1 ea PRN QHS MC 10/10/21 21:00 Cetirizine HCl (ZyrTEC) 10 mg DAILY PO 10/12/21 09:00 10/14/21 08:34 Sertraline HCl (Zoloft) 75 mg DAILY PO 10/14/21 09:00 10/14/21 09:00 Quetiapine Fumarate (SEROquel) 12.5 mg QHS PO 10/13/21 21:00 10/14/21 20:18 Memantine (Namenda) 5 mg DAILY PO 10/15/21 09:00 Current Medications Medications (Trade) Dose Ordered Sig/Mayito Route PRN Reason Start Time Stop Time Status Last Admin Dose Admin Sertraline HCl (Zoloft) 75 mg DAILY PO 10/14/21 09:00 10/14/21 09:00 I have reviewed the current psychotropics carefully including drug interactions. Risk benefit ratio favors no change other than as noted in my dictated progress note. Diagnosis: Problems: (1) Major depressive disorder, recurrent episode (2) Mild cognitive impairment (3) Anxiety disorder, unspecified NÉSTOR WONG MD Oct 15, 2021 07:58
[2021-10-15] MEDS: MULTIVITAMIN with MINERAL TABLET. PO SCH (08:30)
[2021-10-15] MEDS: LISINOPRIL 5 MG TABLET. PO SCH (08:30)
[2021-10-15] MEDS: ASPIRIN ENTERIC COATED 81 MG TABLET.DR. PO SCH (08:30)
[2021-10-15] MEDS: CETIRIZINE HCL 10 MG TABLET PO SCH (08:30)
[2021-10-15] MEDS: SERTRALINE 50 MG TABLET. PO SCH (08:30)
[2021-10-15] MEDS: CELECOXIB 100 MG CAPSULE PO SCH (08:31)
[2021-10-15] MEDS: MEMANTINE 5 MG TABLET. PO SCH (08:34)
[2021-10-15] MEDS: ACETAMINOPHEN 325 MG TABLET PO PRN ×3 (09:34→20:59)
[2021-10-15 15:08] VITALS: BP 110/67
--- NOTE | 2021-10-15 18:00 | NUR ---
Pt up in wc for meals. Has been compliant with meds and cares. Forgetful. C/O wrist pain x2 today. Decreased with tylenol.
[2021-10-15] MEDS: ALPRAZolam 0.25 MG TABLET PO SCH (20:14)
[2021-10-15] MEDS: DONEPEZIL HCL 10 MG TABLET PO SCH (20:14)
[2021-10-15] MEDS: QUEtiapine 25 MG TABLET. PO SCH (20:15)
[2021-10-15] MEDS: ATORVASTATIN CALCIUM 20 MG TABLET PO SCH (20:16)
--- NOTE | 2021-10-15 23:00 | NUR ---
Patient is located in her room on assumption of care, sitting in her wheelchair and enjoying a conversation with her roommate. She is alert and oriented x4. Denies any thoughts of SI or self harm. She was compliant with assessments and took her medications whole. She complained of 9/10 right wrist pain and requested PRN Tylenol, which she received with her HS meds. Patient appears to be sleeping comfortably at present time. Will continue to monitor.
[2021-10-16 05:28] VITALS: BP 120/60
[2021-10-16] MEDS: CELECOXIB 100 MG CAPSULE PO SCH (08:36)
[2021-10-16] MEDS: CETIRIZINE HCL 10 MG TABLET PO SCH (08:36)
[2021-10-16] MEDS: ASPIRIN ENTERIC COATED 81 MG TABLET.DR. PO SCH (08:36)
[2021-10-16] MEDS: MULTIVITAMIN with MINERAL TABLET. PO SCH (08:36)
[2021-10-16] MEDS: SERTRALINE 50 MG TABLET. PO SCH (08:36)
[2021-10-16] MEDS: MEMANTINE 5 MG TABLET. PO SCH (08:36)
[2021-10-16] MEDS: ACETAMINOPHEN 325 MG TABLET PO PRN ×2 (08:37→20:07)
[2021-10-16] MEDS: LISINOPRIL 5 MG TABLET. PO SCH (08:37)
[2021-10-16 09:27] LABS: BASO % 1 % (0-3); EOS # 0.3 x10^3/uL (0.0-0.7); EOS % 4 % (0-3); HEMATOCRIT 36.1 % (36.0-47.0); LYMPH # 1.3 x10^3/uL (1.0-4.8); LYMPH % 20 % (24-48); MEAN CORPUSCULAR HEMOGLOBIN 31 pg (25-35); MEAN CORPUSCULAR HGB CONC 33 g/dL (31-37); MEAN CORPUSCULAR VOLUME 94 fL (79-100); MONO # 0.7 x10^3/uL (0.0-1.1); MONO % 10 % (0-9); NEUT # 4.3 x10^3uL (1.8-7.7); NEUT % 66 % (31-73); PLATELET COUNT 173 x10^3/uL (140-400); RED BLOOD COUNT 3.85 x10^6/uL (3.50-5.40); RED CELL DISTRIBUTION WIDTH 14.7 % (11.5-14.5); WHITE BLOOD COUNT 6.5 x10^3/uL (4.0-11.0)
--- NOTE | 2021-10-16 09:58 | NUR ---
Pt social and appropriate on the unit, absent of disruptive behaviors. She is compliant with whole medications and is receptive to education provided. She reports 9/10 pain in the R hand and shoulder, PRN Acetaminophen 650 mg PO administered at her request, reassessment pending. Plan of care continues, will pass to next shift.
[2021-10-16 10:00] LABS: ALBUMIN 3.3 g/dL (3.4-5.0); ALBUMIN/GLOBULIN RATIO 0.9 (1.0-1.7); CALCIUM 8.7 mg/dL (8.5-10.1); CREATININE 0.7 mg/dL (0.6-1.0); GFR 79.9; POTASSIUM 4.3 mmol/L (3.5-5.1); TOTAL BILIRUBIN 0.5 mg/dL (0.2-1.0); TOTAL PROTEIN 6.8 g/dL (6.4-8.2)
[2021-10-16 15:37] VITALS: BP 112/69
[2021-10-16] MEDS: ATORVASTATIN CALCIUM 20 MG TABLET PO SCH (20:05)
[2021-10-16] MEDS: QUEtiapine 25 MG TABLET. PO SCH (20:05)
[2021-10-16] MEDS: ALPRAZolam 0.25 MG TABLET PO SCH (20:06)
[2021-10-16] MEDS: DONEPEZIL HCL 10 MG TABLET PO SCH (20:06)
--- NOTE | 2021-10-16 20:49 | PN ---
DATE: 10/16/2021 SUBJECTIVE: The patient was seen today, met with the staff, chart was reviewed, and also covering for Dr. Paiz. Staff reports major behavior problems. OBSERVATION: VITAL SIGNS: Temperature 97.9, blood pressure 120/60, pulse 62, respirations 16, O2 sat 95%. GENERAL: Slept about 8 hours last night. The patient's appetite improved. The patient denies having had any falls recently. CURRENT MEDICATIONS: The patient's current medications include Namenda 5 mg daily, Zoloft 75 mg daily, Seroquel 12.5 mg at night, Aricept 10 mg at night, Xanax 0.25 mg at night, and trazodone 25 mg at bedtime p.r.n. The patient is not having any side effects to medications. LABORATORY DATA: The patient's lab reviewed. ASSESSMENT: 1. Major depressive disorder, recurrent. 2. Generalized anxiety disorder. 3. Mild cognitive disorder. PLAN: Continue with the current treatment plan. LENGTH OF STAY: 10-[address]: Martha TID: [id number]
--- NOTE | 2021-10-16 21:05 | PN ---
DATE: 10/15/2021 This is a late entry for the service date 10/15/2021. SUBJECTIVE: The patient was seen today, met with the staff. Chart was reviewed and also covering for Dr. Paiz. Staff reports no major behavior problems. The patient continues to have mood swings. Denies of feeling depressed. OBSERVATION: VITAL SIGNS: Stable. GENERAL: The patient's appetite improved. Sleeping better. CURRENT MEDICATIONS: The patient's current medications include Namenda 5 mg daily, Aricept 10 mg at night, Zoloft 75 mg daily, Seroquel 12.5 mg at night, Xanax 0.25 mg at night, trazodone 25 mg at night p.r.n. The patient is not having any side effects. LABORATORY DATA: The patient's lab reviewed. ASSESSMENT: 1. Major depressive disorder, recurrent. 2. Generalized anxiety disorder. 3. Mild cognitive impairment. DAVINA DR: Martha TID: [id number] [facility]
[2021-10-17 05:49] VITALS: BP 100/56
[2021-10-17] MEDS: SERTRALINE 50 MG TABLET. PO SCH (08:47)
[2021-10-17] MEDS: ACETAMINOPHEN 325 MG TABLET PO PRN ×2 (08:47→21:04)
[2021-10-17] MEDS: ASPIRIN ENTERIC COATED 81 MG TABLET.DR. PO SCH (08:47)
[2021-10-17] MEDS: MULTIVITAMIN with MINERAL TABLET. PO SCH (08:47)
[2021-10-17] MEDS: CETIRIZINE HCL 10 MG TABLET PO SCH (08:47)
[2021-10-17] MEDS: LISINOPRIL 5 MG TABLET. PO SCH (08:48)
[2021-10-17] MEDS: MEMANTINE 5 MG TABLET. PO SCH (08:48)
[2021-10-17] MEDS: CELECOXIB 100 MG CAPSULE PO SCH (08:48)
--- NOTE | 2021-10-17 13:43 | NUR ---
Nursing note: Pt in dining room at time of AM med pass and assessment. She is pleasant, med compliant and cooperative. Pt c/o pain in her wrist that is relieved with tylenol. Pt is interactive with staff and peers. She is currently sitting in the day room for group. Will continue to monitor.
--- NOTE | 2021-10-17 14:08 | RAD ---
EXAM: Chest, 2 views. HISTORY: Cough. COMPARISON: None. FINDINGS: 2 views of the chest are obtained. There are chronic appearing interstitial changes. There is left greater than right lower lobe atelectasis, interstitial infiltrate or scarring. The heart is normal in size. There is no pneumothorax. There is lucency underlying the right hemidiaphragm. IMPRESSION: 1. Chronic appearing interstitial changes with superimposed left greater than right lower lobe atelec tasis, infiltrate or scarring. There is no consolidated pneumonia. 2. Lucency underlying the right hemidiaphragm. Pneumoperitoneum is not excluded. Correlate with a ded icated upright or lateral decubitus abdomen radiograph. Findings were discussed with Odette, the nurse caring for the patient, at 1400 hours on 10/17/2021. Electronically signed by: Aliya Espinoza MD (10/17/2021 2:06 PM) [id number]
[2021-10-17 15:34] VITALS: BP 109/60
--- NOTE | 2021-10-17 15:56 | NUR ---
SW returned call to Jaylene pt dtr, who wanted to follow up on her siblings concerns re: whether or not pt is able to call and speak to the pt. He has found out more information re: his health. Pt , Nadir, wants to make sure her kids know that he is not fully abandoning her and wants to be kept in the loop. SW questioned if Jaylene or one of her siblings has discussed with pt her inability to return home and she reports that they have discussed this with her multiple times over the weekend. In having this discussion, pt has not brought up her once. SW noted that if pt has been told about placement but did not mention Nadir, SW would not recommend having him call. This could potentially be a set back learning that he has more health problems than they realized; pt may insist on going home to "care for him" when in reality, he cared for her. Jaylene and BRIANNA discussed pt working with therapy and noted that they are recommending SNF at the time of discharge. SW will discuss this further to see if they think this could cognitively affect pt or if they feel she is will be okay. This may change the outcome for placement in which [facility] and then [facility] to [facility].
[2021-10-17] MEDS: QUEtiapine 25 MG TABLET. PO SCH (20:59)
[2021-10-17] MEDS: ATORVASTATIN CALCIUM 20 MG TABLET PO SCH (20:59)
[2021-10-17] MEDS: ALPRAZolam 0.25 MG TABLET PO SCH (20:59)
[2021-10-17] MEDS: DONEPEZIL HCL 10 MG TABLET PO SCH (20:59)
--- NOTE | 2021-10-17 23:53 | NUR ---
Patient was in her room sitting in her wheelchair looking towards the window when nurse entered the room. Patient is pleasant and interactive, calm and cooperative. She denies SI when asked and has made no statements regarding wanting to . Patient reports that her broken wrist/arm is still painful and was given PRN tylenol with HS medications.
--- NOTE | 2021-10-18 01:05 | PN ---
DATE: 10/17/2021 SUBJECTIVE: The patient was seen today, met with the staff. Chart was reviewed and also covering for Dr. Paiz. The patient's behavior has improved. She is medication compliant, getting along with the staff and residents and not expressed any major behavior problems. The patient is still complaining of pain on her arm. Apparently, she had multiple fractures in the past, currently she has a cast on her right forearm. OBJECTIVE: VITAL SIGNS: Temperature 97.4, blood pressure 100/56, pulse 75, respirations 16, O2 sat 96%. GENERAL: Slept about 7 hours last night. Her appetite has improved. LABORATORY DATA: The patient's lab reviewed. CURRENT MEDICATIONS: Include Namenda 5 mg daily, Aricept 10 mg at night, Zoloft 75 mg daily, Seroquel 12.5 mg at night, Xanax 0.25 mg at night, and trazodone 25 mg daily p.r.n. The patient is not having any side effects. Not having any major physical complaints. ASSESSMENT: 1. Major depressive disorder, recurrent. 2. Generalized anxiety disorder. 3. Mild cognitive disorder. PLAN: To continue with the treatment. LENGTH OF STAY: 5-[address]: Martha TID: [id number]
[2021-10-18 05:38] VITALS: BP 116/64
[2021-10-18] MEDS: CELECOXIB 100 MG CAPSULE PO SCH (08:41)
[2021-10-18] MEDS: CETIRIZINE HCL 10 MG TABLET PO SCH (08:41)
[2021-10-18] MEDS: ACETAMINOPHEN 325 MG TABLET PO PRN ×2 (08:41→19:54)
[2021-10-18] MEDS: ASPIRIN ENTERIC COATED 81 MG TABLET.DR. PO SCH (08:41)
[2021-10-18] MEDS: LISINOPRIL 5 MG TABLET. PO SCH (08:42)
[2021-10-18] MEDS: MULTIVITAMIN with MINERAL TABLET. PO SCH (08:42)
[2021-10-18] MEDS: SERTRALINE 50 MG TABLET. PO SCH (08:42)
[2021-10-18] MEDS: MEMANTINE 5 MG TABLET. PO SCH (08:42)
--- NOTE | 2021-10-18 10:01 | NUR ---
Nursing note: Pt in dining room at time of AM med pass and assessment. She is pleasant, med compliant and cooperative. Pt c/o pain in her wrist that is relieved with tylenol. Pt is interactive with staff and peers. She is currently sitting in the day room watching TV. Will continue to monitor.
[2021-10-18 15:07] VITALS: BP 104/63
[2021-10-18] MEDS: ATORVASTATIN CALCIUM 20 MG TABLET PO SCH (19:51)
[2021-10-18] MEDS: ALPRAZolam 0.25 MG TABLET PO SCH (19:51)
[2021-10-18] MEDS: DONEPEZIL HCL 10 MG TABLET PO SCH (19:52)
[2021-10-18] MEDS: QUEtiapine 25 MG TABLET. PO SCH (19:53)
--- NOTE | 2021-10-18 20:00 | NUR ---
Pt has been in her room tonight and has been pleasant and cooperative with staff. She took meds whole without difficulty and has had no behaviors. PRN Tylenol given for rt arm pain. Splint is on rt arm and CMS intact.
--- NOTE | 2021-10-18 20:30 | NUR ---
Pt resting in bed and has no further complaints of pain.
--- NOTE | 2021-10-18 23:53 | RAD ---
EXAM: ABDOMEN 2 VIEWS. HISTORY: Pneumoperitoneum. COMPARISON: None. FINDINGS: Supine and upright views of the abdomen are obtained. There is no appreciable pneumoperitoneum. There are no distended small bowel loops or significant air fluid levels. There is gas distally. Linear opacities in the bases are consistent with atelectasis or scarring and there is a mild thoraci c dextroscoliosis with moderate to severe degenerative disc disease. I total hip arthroplasty and chalino nges of internal fixation of a left proximal femoral fracture are partially visualized. IMPRESSION: 1. No appreciable pneumoperitoneum by radiographs. No evidence of obstruction. Electronically signed by: Jessie Lainez MD (10/18/2021 11:50 PM) [facility]
--- NOTE | 2021-10-19 00:22 | PN ---
DATE: 10/18/2021 SUBJECTIVE: The patient was seen today, met with the staff, chart reviewed. The patient reports no major behavior problems. The patient is mainly concerned about her chronic pain on her right forearm. Apparently, she has a cast. The patient had fracture. The patient has a past history of having multiple fractures. OBSERVATION: VITAL SIGNS: Temperature 97.0, blood pressure 116/64, pulse 68, respirations 16, O2 sat 98%. GENERAL: Slept about 6 hours last night. The patient's appetite is fair. The patient admits to feeling depressed at times because of her physical problems and she rates her pain level is 9 in her right forearm. The patient is getting Tylenol as p.r.n. LABORATORY DATA: The patient's lab reviewed. CURRENT MEDICATIONS: Include Namenda 5 mg daily, Aricept 10 mg at night, Zoloft 75 mg daily, Seroquel 12.5 mg at night, Xanax 0.25 mg at night, and trazodone 25 mg daily p.r.n. The patient is not having any side effects to medications. ASSESSMENT: 1. Major depressive disorder, recurrent. 2. Generalized anxiety disorder. 3. Mild cognitive disorder. PLAN: To continue treatment. LENGTH OF STAY: Five days. MARIELLE DR: Martha TID: [id number]
[2021-10-19 06:04] VITALS: BP 128/59
[2021-10-19] MEDS: MEMANTINE 5 MG TABLET. PO SCH (08:08)
[2021-10-19] MEDS: ASPIRIN ENTERIC COATED 81 MG TABLET.DR. PO SCH (08:08)
[2021-10-19] MEDS: MULTIVITAMIN with MINERAL TABLET. PO SCH (08:08)
[2021-10-19] MEDS: CETIRIZINE HCL 10 MG TABLET PO SCH (08:08)
[2021-10-19] MEDS: SERTRALINE 50 MG TABLET. PO SCH (08:08)
[2021-10-19] MEDS: CELECOXIB 100 MG CAPSULE PO SCH (08:08)
[2021-10-19] MEDS: LISINOPRIL 5 MG TABLET. PO SCH (08:09)
[2021-10-19] MEDS: ACETAMINOPHEN 325 MG TABLET PO PRN (08:22)
--- NOTE | 2021-10-19 08:59 | NUR ---
Pt social and appropriate on the unit. She is compliant with whole medications and receptive to education provided. She is A&Ox4, absent of disruptive behaviors on the unit. She requests standby assist when transferring or ambulating, she is able to make her needs known. Pt c/o 07/08 pain in the RUE, PRN Acetaminophen 650 mg PO administered at her request, reassessment pending. Plan of care continues, will pass to next shift.
--- NOTE | 2021-10-19 13:15 | NUR ---
SW met with pt and completed a Zoom interview with a couple of the nurses at [facility]. Pt repeated multiple times that she is doing well mentally and physically "the best I've ever been" and noted that she had six children, but one has in her 60s. The facility questioned pt on her ADL's and completed some orientation questions in which pt then repeated a few of her answers as though, she did not tell them about herself previously. The facility felt that pt would be a good fit; however, questioned if her would be coming with her in which pt stated "why would he come in here with me. He doesn't need rehab". Pt continued to state "I do hope to be out of here in time for Mily through. Is that possible for me to be out in time for Mily". SW explained that it more than likely would be next week, but lets see how the rest of the meeting went and SW could discuss this with her afterwards.
[2021-10-19 15:33] VITALS: BP 122/58
--- NOTE | 2021-10-19 16:20 | NUR ---
BRIANNA contacted Jaylene to update her on how pt evaluation went and to discuss the potential game plan. At this time, they do believe they can take pt, however, it would not be until the beginning of next week. They have concerns about pt getting efficient rehab at [facility] and BRIANNA was not able to inform Jaylene as to what that would look like. They did as for copies of pt medical cards and BRIANNA sent them update PT and OT notes as to how pt is doing. Jaylene will wait to see if someone reaches out to her to figure out next steps; both parties will plan to talk tomorrow afternoon.
[2021-10-19] MEDS: DONEPEZIL HCL 10 MG TABLET PO SCH (20:13)
[2021-10-19] MEDS: ALPRAZolam 0.25 MG TABLET PO SCH (20:14)
[2021-10-19] MEDS: ATORVASTATIN CALCIUM 20 MG TABLET PO SCH (20:14)
[2021-10-19] MEDS: QUEtiapine 25 MG TABLET. PO SCH (20:14)
--- NOTE | 2021-10-19 23:08 | NUR ---
Patient has been using walker to get to bathroom and to ambulate around her room. She asks for SBA with transfers, as she states she is afraid she will fall. Patient compliant with medications taken whole, she is laying in her bed awake, but with eyes closed. Patient was interactive when approached, she denies SI when asked and states she "has not felt this good mentally in years". Patient reports that her broken arm is still painful and she does not think it has healed very much. PRN tylenol given for pain this morning.
--- NOTE | 2021-10-20 01:26 | PN ---
DATE: 10/19/2021 SUBJECTIVE: The patient was seen today, met with the staff. Chart reviewed and also covering for Dr. Paiz. The patient's behavior has improved. She is pleasant. She is not having any physical complaints. The patient is jovial, interacting with the staff. Currently, not depressed. OBSERVATION: VITAL SIGNS: Temperature 97.8, blood pressure 128/59, pulse 78, respirations 16, O2 sat 95%. GENERAL: Slept about 8 hours last night. The patient's appetite normal. LABORATORY DATA: The patient's lab reviewed. CURRENT MEDICATIONS: The patient's current medications include Namenda 5 mg daily, Aricept 10 mg at night, Zoloft 75 mg daily, Seroquel 12.5 mg daily, Xanax 0.25 mg at night and trazodone 25 mg daily p.r.n. The patient denies of any side effects to medications. ASSESSMENT: 1. Major depressive disorder, recurrent. 2. Generalized anxiety disorder. 3. Mild cognitive disorder. PLAN: Continue treatment. LENGTH OF STAY: Five days. RUSS DR: Martha TID: [id number]
[2021-10-20 05:31] VITALS: BP 101/59
[2021-10-20] MEDS: ASPIRIN ENTERIC COATED 81 MG TABLET.DR. PO SCH (08:13)
[2021-10-20] MEDS: SERTRALINE 50 MG TABLET. PO SCH (08:13)
[2021-10-20] MEDS: CETIRIZINE HCL 10 MG TABLET PO SCH (08:14)
[2021-10-20] MEDS: ACETAMINOPHEN 325 MG TABLET PO PRN ×2 (08:14→20:32)
[2021-10-20] MEDS: LISINOPRIL 5 MG TABLET. PO SCH (08:14)
[2021-10-20] MEDS: MULTIVITAMIN with MINERAL TABLET. PO SCH (08:14)
[2021-10-20] MEDS: MEMANTINE 5 MG TABLET. PO SCH (08:14)
[2021-10-20] MEDS: CELECOXIB 100 MG CAPSULE PO SCH (08:14)
--- NOTE | 2021-10-20 08:21 | NUR ---
Pt A&ox4, denies SI/HI/VH/AH/delusions. She reports 8/10 pain in the RUE, PRN Acetaminophen 650 mg PO administered at her request, reassessment pending. She is med compliant, pleasant and polite in her interactions with others. Plan of care continues, will pass to next shift.
--- NOTE | 2021-10-20 12:26 | NUR ---
WEEKLY ACTIVITY THERAPY NOTE Date of Admission: 10/03/21 Date of AT Assessment: 10/06 Precipitating behaviors that initiated intake and admission:paranoid, SI, wants to , sundowning, agitated Goal aimed: increase socialization and engagement Initial Goal: Pt will participate in at least three Activity Therapy sessions per week Weekly progress towards goal: exceeded, 05/31 Group participation level: 1 mod, 7 full Weekly highlights: enjoyed a movie and ice cream , answered words within words with and without hints Sunday, answered grid categories independently Sunday, shared thoughts and feelings during leisure and emotions group Sunday Behaviors observed: independent, calm, pleasant, social Plan: change goal to: Pt will participate in all Activity Therapy sessions offered Beneficial adaptations: socialization, engagement
[2021-10-20 15:45] VITALS: BP 108/65
--- NOTE | 2021-10-20 16:00 | NUR ---
BRIANNA spoke with Jaylene, pt dtr/DPOA, to inform her about treatment team and noted that she could discharge at any time. Jaylene informed SW that the family has planned to send pt to SNF versus an AL or [facility]. They felt that pt physical needs are more of a hindrance and should be addressed first. BRIANNA noted that they would not hold the bed at [facility] and Jaylene understood in hopes that when the time was right, they could revisit placement either there or at [facility]. BRIANNA will send the referral on Sunday with tomorrow being considered the observed holiday and would plan to get back to Jaylene with their decision. With pt discharging to SNF, if they accept, pt can discharge the next day.
[2021-10-20] MEDS: MAG HYDROX/AL HYDROX/SIMETH 30 ML ORAL.SUSP PO PRN (18:03)
--- NOTE | 2021-10-20 18:04 | NUR ---
Pt c/o nausea. PRN Maalox 15 mL PO administered.
[2021-10-20] MEDS: ATORVASTATIN CALCIUM 20 MG TABLET PO SCH (20:32)
[2021-10-20] MEDS: QUEtiapine 25 MG TABLET. PO SCH (20:32)
[2021-10-20] MEDS: ALPRAZolam 0.25 MG TABLET PO SCH (20:34)
[2021-10-20] MEDS: DONEPEZIL HCL 10 MG TABLET PO SCH (21:16)
--- NOTE | 2021-10-21 02:49 | NUR ---
Last evening pt had nausea but did not have emesis and by bedtime was feeling better. She is oriented x4 then after talking with her for awhile she starts to repeat self and is forgetful at times. She took meds whole and has been pleasant and cooperative. She denies SI and has had no behaviors tonight.
--- NOTE | 2021-10-21 05:47 | PN ---
DATE: 10/20/2021 SUBJECTIVE: The patient was seen today, met with the staff. Chart was reviewed. Also covering for Dr. Paiz. Staff reports continued improvement. No major behavior problems. OBJECTIVE: VITAL SIGNS: Stable. GENERAL: The patient's appetite improved. CURRENT MEDICATIONS: Include Namenda 5 mg daily, Aricept 10 mg at night, Zoloft 75 mg daily, Seroquel 12.5 mg daily, Xanax 0.25 mg at night, and trazodone 25 mg daily p.r.n. She denies of any side effects to medications. ASSESSMENT: 1. Major depressive disorder, recurrent. 2. Generalized anxiety disorder. 3. Mild cognitive disorder. PLAN: To continue with the treatment. LENGTH OF STAY: Five days. MARIA LUISA/REESE/KENNY DR: Martha TID: [id number]
[2021-10-21 05:50] VITALS: BP 127/72
[2021-10-21] MEDS: LISINOPRIL 5 MG TABLET. PO SCH (07:32)
[2021-10-21] MEDS: ASPIRIN ENTERIC COATED 81 MG TABLET.DR. PO SCH (07:32)
[2021-10-21] MEDS: CETIRIZINE HCL 10 MG TABLET PO SCH (07:32)
[2021-10-21] MEDS: MULTIVITAMIN with MINERAL TABLET. PO SCH (07:32)
[2021-10-21] MEDS: MEMANTINE 5 MG TABLET. PO SCH (07:33)
[2021-10-21] MEDS: CELECOXIB 100 MG CAPSULE PO SCH (07:33)
[2021-10-21] MEDS: SERTRALINE 50 MG TABLET. PO SCH (07:33)
[2021-10-21] MEDS: ACETAMINOPHEN 325 MG TABLET PO PRN ×2 (07:43→20:15)
--- NOTE | 2021-10-21 13:25 | PN ---
DATE: 10/21/2021 SUBJECTIVE: The patient was seen today, met with the staff, chart was reviewed and also covering for Dr. Paiz. The patient's behavior has improved. Continues to have pain. The patient has not presented with any major behavior problems. OBSERVATION: VITAL SIGNS: Temperature 98.4, blood pressure 127/72, pulse 77, respirations 20, O2 sat 96%. GENERAL: Slept about 8 hours last night. The patient's appetite is fair. LABORATORY DATA: Reviewed. CURRENT MEDICATIONS: Include Namenda 5 mg daily, Aricept 10 mg at night, Zoloft 75 mg daily, Seroquel 12.5 mg daily, trazodone 25 mg daily p.r.n. and Xanax 0.25 mg at night. The patient is not having any side effects. The patient denies of any other major complaints. ASSESSMENT: 1. Major depressive disorder, recurrent. 2. Generalized anxiety disorder. 3. Mild cognitive disorder. PLAN: To continue with treatment. LENGTH OF STAY: Three to five days. ADDY DR: Martha TID: [id number]
--- NOTE | 2021-10-21 15:28 | NUR ---
Nursing note: Patient is in bed room for morning assessment. She is alert and oriented x 3, not to situation. She is pleasant & cooperative. She self propels in w/c, standby assist with walker. She c/o nausea after breakfast & lunch, no emesis. She denies any SI at this time. Patient denies pain/discomfort at this time. She can be forgetful, anxious, & hyperverbal. She is currently resting in bed with eyes closed. Will continue to monitor.
[2021-10-21 15:40] VITALS: BP 111/69
[2021-10-21] MEDS: QUEtiapine 25 MG TABLET. PO SCH (19:37)
[2021-10-21] MEDS: DONEPEZIL HCL 10 MG TABLET PO SCH (19:38)
[2021-10-21] MEDS: ATORVASTATIN CALCIUM 20 MG TABLET PO SCH (19:38)
[2021-10-21] MEDS: ALPRAZolam 0.25 MG TABLET PO SCH (19:38)
--- NOTE | 2021-10-21 21:15 | NUR ---
Patient is located in her room on assumption of care, awake in her bed. She is alert and oriented x4. Denies any thoughts of SI or self harm. She was compliant with assessments and took her medications whole. She complained of 7/10 right wrist pain and requested PRN Tylenol, which she received with her HS meds. Patient appears to be sleeping comfortably at present time. Will continue to monitor.
[2021-10-22 05:52] VITALS: BP 121/56
[2021-10-22] MEDS: MULTIVITAMIN with MINERAL TABLET. PO SCH (08:11)
[2021-10-22] MEDS: ASPIRIN ENTERIC COATED 81 MG TABLET.DR. PO SCH (08:11)
[2021-10-22] MEDS: CETIRIZINE HCL 10 MG TABLET PO SCH (08:11)
[2021-10-22] MEDS: CELECOXIB 100 MG CAPSULE PO SCH (08:11)
[2021-10-22] MEDS: LISINOPRIL 5 MG TABLET. PO SCH (08:11)
[2021-10-22] MEDS: MEMANTINE 5 MG TABLET. PO SCH (08:12)
[2021-10-22] MEDS: SERTRALINE 50 MG TABLET. PO SCH (08:12)
[2021-10-22] MEDS: ACETAMINOPHEN 325 MG TABLET PO PRN ×2 (08:15→19:46)
--- NOTE | 2021-10-22 09:29 | NUR ---
Pt social and appropriate. She is compliant with whole medications and is receptive to education provided. She reports 9/10 pain in the R hand and shoulder, PRN Acetaminophen 650 mg PO administered at her request, reassessment pending. Plan of care continues, will pass to next shift.
[2021-10-22 15:42] VITALS: BP 110/64
--- NOTE | 2021-10-22 17:50 | NUR ---
Pt declines dinner and elects to stay in bed and nap, stating she "doesn't feel good." Pt reports intermittent nausea but denies episodes of emesis. Will continue to monitor.
[2021-10-22] MEDS: ALPRAZolam 0.25 MG TABLET PO SCH (19:44)
[2021-10-22] MEDS: DONEPEZIL HCL 10 MG TABLET PO SCH (19:44)
[2021-10-22] MEDS: ATORVASTATIN CALCIUM 20 MG TABLET PO SCH (19:45)
[2021-10-22] MEDS: QUEtiapine 25 MG TABLET. PO SCH (19:45)
[2021-10-22] MEDS: MAG HYDROX/AL HYDROX/SIMETH 30 ML ORAL.SUSP PO PRN (19:48)
--- NOTE | 2021-10-22 21:27 | PN ---
DATE: 10/22/2021 SUBJECTIVE: The patient was seen today, met with the staff, chart was reviewed, and also covering for Dr. Paiz. The patient apparently has been compliant, appropriate with her behavior, apparently had a good day today. The patient still complains of severe pain in her right forearm and complaints of numbness and also severe pain, rates 9 when she tries to move. OBSERVATION: VITAL SIGNS: Temperature 98.0, blood pressure 121/56, pulse 78, respirations 16, O2 sat 95%. GENERAL: Slept about 7 hours last night. The patient's appetite is fair. LABORATORY DATA: The patient's lab reviewed. CURRENT MEDICATIONS: Namenda 5 mg daily, Aricept 10 mg at night, Zoloft 75 mg daily, Seroquel 12.5 mg daily, trazodone 25 mg daily p.r.n., and Xanax 0.25 mg at night. She is not having any side effects to medications. ASSESSMENT: 1. Major depressive disorder, recurrent. 2. Generalized anxiety disorder. 3. Mild cognitive disorder. PLAN: To continue treatment. LENGTH OF STAY: Three to five days. MARIELLE DR: Martha TID: [id number]
--- NOTE | 2021-10-22 23:04 | NUR ---
Patient is located in her room on assumption of care, awake in her bed. She is alert and oriented x4. Denies any thoughts of SI or self harm. She was compliant with assessments and took her medications whole. She enjoyed having a conversation with 2 of her daughters, and told this nurse about plans to have a belated holiday celebration with them when she leaves here. She complained of 7/10 right wrist pain and requested PRN Tylenol, which she received with her HS meds. Also complained of nausea/upset stomach, and received PRN Maalox with HS meds as well. Patient appears to be sleeping comfortably at present time. Will continue to monitor.
[2021-10-23 05:45] VITALS: BP 130/69
[2021-10-23] MEDS: CELECOXIB 100 MG CAPSULE PO SCH (07:59)
[2021-10-23] MEDS: ASPIRIN ENTERIC COATED 81 MG TABLET.DR. PO SCH (07:59)
[2021-10-23] MEDS: ACETAMINOPHEN 325 MG TABLET PO PRN ×2 (08:01→19:50)
[2021-10-23] MEDS: MEMANTINE 5 MG TABLET. PO SCH (08:01)
[2021-10-23] MEDS: SERTRALINE 50 MG TABLET. PO SCH (08:01)
[2021-10-23] MEDS: CETIRIZINE HCL 10 MG TABLET PO SCH (08:01)
[2021-10-23] MEDS: MULTIVITAMIN with MINERAL TABLET. PO SCH (08:01)
[2021-10-23] MEDS: LISINOPRIL 5 MG TABLET. PO SCH (08:02)
--- NOTE | 2021-10-23 09:40 | NUR ---
Pt appropriate so far this shift. Compliant with whole medications. She is absent of disruptive behaviors on the unit. She c/o 9/10 pain in the RUE, PRN Acetaminophen 650 mg PO administered by MANAN Haile prior to breakfast with apparent effectiveness. Plan of care continues, will pass to next shift.
[2021-10-23 11:14] LABS: BASO % 0 % (0-3); EOS # 0.1 x10^3/uL (0.0-0.7); EOS % 1 % (0-3); HEMATOCRIT 35.4 % (36.0-47.0); HEMOGLOBIN 11.5 g/dL (12.0-15.5); LYMPH # 1.2 x10^3/uL (1.0-4.8); LYMPH % 12 % (24-48); MEAN CORPUSCULAR HEMOGLOBIN 31 pg (25-35); MEAN CORPUSCULAR HGB CONC 33 g/dL (31-37); MEAN CORPUSCULAR VOLUME 95 fL (79-100); MONO % 10 % (0-9); NEUT # 7.4 x10^3uL (1.8-7.7); NEUT % 77 % (31-73); PLATELET COUNT 219 x10^3/uL (140-400); RED BLOOD COUNT 3.73 x10^6/uL (3.50-5.40); RED CELL DISTRIBUTION WIDTH 15.3 % (11.5-14.5); WHITE BLOOD COUNT 9.7 x10^3/uL (4.0-11.0)
[2021-10-23 11:27] LABS: ALBUMIN/GLOBULIN RATIO 0.8 (1.0-1.7); CALCIUM 8.9 mg/dL (8.5-10.1); POTASSIUM 4.7 mmol/L (3.5-5.1); TOTAL BILIRUBIN 0.3 mg/dL (0.2-1.0); TOTAL PROTEIN 6.7 g/dL (6.4-8.2)
[2021-10-23 15:57] VITALS: BP 108/65
[2021-10-23] MEDS: MAG HYDROX/AL HYDROX/SIMETH 30 ML ORAL.SUSP PO PRN (17:28)
--- NOTE | 2021-10-23 17:28 | NUR ---
Pt c/o nausea and states she experienced "gagging" prior to dinner. She is breathing heavily and looks very worried. She states her last BM was today after breakfast. 7Ira provided, EH Murry provided, Dr Hosea conway and received orders for PRViviana Ta. Addendum: 10/23/21 at 1749 by EMELIA SOTO RN PRN Zofran administered
[2021-10-23] MEDS ORDERED: ONDANSETRON ODT 4 MG TAB.RAPDIS PO PRN (17:30)
[2021-10-23] MEDS: DONEPEZIL HCL 10 MG TABLET PO SCH (19:50)
[2021-10-23] MEDS: ALPRAZolam 0.25 MG TABLET PO SCH (19:50)
[2021-10-23] MEDS: QUEtiapine 25 MG TABLET. PO SCH (19:51)
[2021-10-23] MEDS: ATORVASTATIN CALCIUM 20 MG TABLET PO SCH (19:52)
--- NOTE | 2021-10-23 21:24 | PN ---
DATE: 10/23/2021 SUBJECTIVE: The patient was seen today, met with the staff, chart reviewed, and also covering for Dr. Paiz. Staff reports no major medical issues except for chronic pain on her right forearm. The patient is otherwise doing well, not exhibiting any major behavior problems. OBSERVATION: VITAL SIGNS: Temperature 97.4, blood pressure 130/69, pulse 70, respirations 16, O2 sat 97%. GENERAL: Slept about 7 hours last night. The patient's appetite improved. LABORATORY DATA: The patient's lab reviewed. CURRENT MEDICATIONS: The patient's current medications include Namenda 5 mg daily, Aricept 10 mg at night, Zoloft 75 mg daily, Seroquel 12.5 mg daily, trazodone 25 mg daily p.r.n., and Xanax 0.25 mg at night. The patient denies of any side effects to medications. ASSESSMENT: 1. Major depressive disorder, recurrent. 2. Generalized anxiety disorder. 3. Mild cognitive disorder. PLAN: To continue with the treatment. LENGTH OF STAY: Three to five days. BG DR: Martha TID: [id number]
[2021-10-24 05:29] VITALS: BP 96/60
[2021-10-24] MEDS: ACETAMINOPHEN 325 MG TABLET PO PRN (05:37)
[2021-10-24] MEDS: ASPIRIN ENTERIC COATED 81 MG TABLET.DR. PO SCH (07:39)
[2021-10-24] MEDS: MULTIVITAMIN with MINERAL TABLET. PO SCH (07:39)
[2021-10-24] MEDS: SERTRALINE 50 MG TABLET. PO SCH (07:40)
[2021-10-24] MEDS: CELECOXIB 100 MG CAPSULE PO SCH (07:40)
[2021-10-24] MEDS: CETIRIZINE HCL 10 MG TABLET PO SCH (07:43)
[2021-10-24] MEDS: LISINOPRIL 5 MG TABLET. PO SCH (07:44)
[2021-10-24] MEDS: MEMANTINE 5 MG TABLET. PO SCH (07:44)
--- NOTE | 2021-10-24 09:00 | NUR ---
Pt up to BR before breakfast. Pt performing ADL herself. When aide came in to see how pt was managing, she was suddenly unable to stand or walk. Pt leaning completely on staff. Pt assisted back to bed. Pt was neurologically intact. Has hx of feigning helplessness. Pt later came down to breakfast with walker. Balance and gait steady.
--- NOTE | 2021-10-24 12:18 | PN ---
DATE: 10/24/2021 SUBJECTIVE: The patient was seen today, met with the staff, chart reviewed. Also, covering for Dr. Paiz. Staff reports she is medication compliant, appropriate, apparently had a good day today so far. The patient had problems with nausea recently, but no vomiting or diarrhea. OBSERVATION: VITAL SIGNS: Temperature 96.9, blood pressure 96/60, pulse 80, respirations 16, O2 sat 97%. GENERAL: Slept about 8 hours last night. The patient's appetite is fair. The patient still having problems with pain on her right arm. The patient is not making any negative statements. The patient did not have any falls. LABORATORY DATA: The patient's lab reviewed. ASSESSMENT: 1. Major depressive disorder, recurrent. 2. Generalized anxiety disorder. 3. Mild cognitive disorder. PLAN: To continue with treatment. LENGTH OF STAY: Three to five days. TONIE DR: Martha TID: [id number]
--- NOTE | 2021-10-24 15:03 | NUR ---
BRIANNA contacted Jaylene to let her know that [facility] had declined pt for admission, stating that with her SI history, they do not feel equipped to handle her psychiatric needs. SW explained that she has not made any SI statements since admission; however, they felt that those statements can be made at any time and they would not be able to meet her needs if they occurred. Jaylene will call her siblings to see about next steps. BRIANNA informed Jaylene that SW did also reach out to see if other [facility] locations would be able to consider her; BRIANNA noted those locations near [facility] and across from [facility]. Jaylene will contact BRIANNA and let her know TYRON.
[2021-10-24 15:37] VITALS: BP 137/67
--- NOTE | 2021-10-24 17:46 | NUR ---
Pt has been compliant and pleasant rest of day. Refused to come out for supper. Stated she is still full from lunch.Compliant with meds and cares.
[2021-10-24] MEDS: ATORVASTATIN CALCIUM 20 MG TABLET PO SCH (20:06)
[2021-10-24] MEDS: DONEPEZIL HCL 10 MG TABLET PO SCH (20:07)
[2021-10-24] MEDS: QUEtiapine 25 MG TABLET. PO SCH (20:07)
[2021-10-24] MEDS: ALPRAZolam 0.25 MG TABLET PO SCH (20:07)
--- NOTE | 2021-10-25 00:29 | NUR ---
Nursing note Pt talks at length about her multiple falls, her pain to her wrist, and the circumstances behind the fall. States "My tyelenol is in there isn't it?" Told her its on request but was happy to get it for her. Takes po pills willingly. Resting well now,
[2021-10-25 06:00] VITALS: BP 117/70
[2021-10-25] MEDS: LISINOPRIL 5 MG TABLET. PO SCH (08:05)
[2021-10-25] MEDS: ASPIRIN ENTERIC COATED 81 MG TABLET.DR. PO SCH (08:05)
[2021-10-25] MEDS: CELECOXIB 100 MG CAPSULE PO SCH (08:05)
[2021-10-25] MEDS: MEMANTINE 5 MG TABLET. PO SCH (08:05)
[2021-10-25] MEDS: CETIRIZINE HCL 10 MG TABLET PO SCH (08:05)
[2021-10-25] MEDS: MULTIVITAMIN with MINERAL TABLET. PO SCH (08:05)
[2021-10-25] MEDS: SERTRALINE 50 MG TABLET. PO SCH (08:05)
[2021-10-25] MEDS: ACETAMINOPHEN 325 MG TABLET PO PRN ×2 (08:09→22:27)
--- NOTE | 2021-10-25 12:00 | NUR ---
Nursing note: Pt in dining room at time of AM med pas and assessment. She is pleasant, med compliant and cooperative. PRN given for wrist pain with good effect. Pt has no other concerns at that time. She is currently walking to the dining room for lunch. Will continue to monitor.
[2021-10-25 16:11] VITALS: BP 107/56
[2021-10-25] MEDS: ALPRAZolam 0.25 MG TABLET PO SCH (20:32)
[2021-10-25] MEDS: QUEtiapine 25 MG TABLET. PO SCH (20:32)
[2021-10-25] MEDS: DONEPEZIL HCL 10 MG TABLET PO SCH (20:33)
[2021-10-25] MEDS: ATORVASTATIN CALCIUM 20 MG TABLET PO SCH (20:33)
--- NOTE | 2021-10-26 03:12 | PN ---
DATE: 10/25/2021 SUBJECTIVE: The patient was seen today, met with the staff, chart reviewed. Also, covering for Dr. Paiz. The patient is medication compliant and has not presented with any major behavior problems except complaining of pain in her right arm. The patient has been staying in bed most of the time, feeling tired and weak. The patient is not depressed, but having high level of anxiety. OBSERVATION: VITAL SIGNS: Temperature 97.3, blood pressure 117/70, pulse 75, respirations 16, O2 sat 96%. Slept about 8.5 hours last night. GENERAL: The patient's appetite is fair. The patient is not having any other physical complaints. LABORATORY DATA: Reviewed. CURRENT MEDICATIONS: The patient's current medications include Namenda 5 mg daily, Zoloft 75 mg daily, Seroquel 12.5 mg at night, Aricept 10 mg at night and Xanax 0.25 mg at night. The patient is also on trazodone 25 mg at night p.r.n. for sleep. The patient denies of any side effects to medications. ASSESSMENT: 1. Major depressive disorder, recurrent. 2. Generalized anxiety disorder. 3. Mild cognitive disorder. PLAN: To continue treatment. LENGTH OF STAY: 3-[address]: Martha TID: [id number]
[2021-10-26 06:03] VITALS: BP 96/58
[2021-10-26] MEDS: LISINOPRIL 5 MG TABLET. PO SCH (09:00)
[2021-10-26] MEDS: ACETAMINOPHEN 325 MG TABLET PO PRN ×2 (09:11→20:35)
[2021-10-26] MEDS: ASPIRIN ENTERIC COATED 81 MG TABLET.DR. PO SCH (09:11)
[2021-10-26] MEDS: MEMANTINE 5 MG TABLET. PO SCH (09:12)
[2021-10-26] MEDS: MULTIVITAMIN with MINERAL TABLET. PO SCH (09:12)
[2021-10-26] MEDS: CETIRIZINE HCL 10 MG TABLET PO SCH (09:12)
[2021-10-26] MEDS: SERTRALINE 50 MG TABLET. PO SCH (09:12)
[2021-10-26] MEDS: CELECOXIB 100 MG CAPSULE PO SCH (09:12)
--- NOTE | 2021-10-26 13:20 | NUR ---
Nursing note: Pt in her room at time of AM med pass and assessment. She is pleasant, med compliant and cooperative. PRN given for wrist pain with good effect. Pt c/o feeling nauseous and wishing to lay in bed this shift and looking out the window. She is currently in her room working with therapy. Will continue to monitor.
--- NOTE | 2021-10-26 14:31 | NUR ---
SW attempted to contact pt dtr/DPЕЛЕНА, Jaylene, and left a message asking for her to contact SW when possible.
--- NOTE | 2021-10-26 15:05 | NUR ---
BRIANNA received call from Jaylene to discuss the denials from [facility] on having pt go for SN. They were concerned about pt making the SI statement upon admission and felt they would not be able to meet her mental health needs. BRIANNA and Jaylene discussed sending pt over to [facility] for SN, as well as having a referral sent over to [facility] to see if they would be able to skill pt there. BRIANNA and Jaylene also discussed other AL potentials with [facility] in [place] and a few others. BRIANNA will make sure to contact Jaylene tomorrow once heard back from the SN facilities on approval or denial.
[2021-10-26 15:37] VITALS: BP 125/74
--- NOTE | 2021-10-26 20:20 | NUR ---
Pt has been resting in her bed tonight. She took meds whole and was given PRN tylenol for rt wrist and shoulder soreness and reported good relief. She has been pleasant and cooperative with staff and denies SI and has not made any paranoid statements. She does report having nausea sometimes with no emesis, she thinks it may be from the Ensure drinks tht she has with her meals. She has had no behaviors tonight.
[2021-10-26] MEDS: QUEtiapine 25 MG TABLET. PO SCH (20:35)
[2021-10-26] MEDS: ALPRAZolam 0.25 MG TABLET PO SCH (20:35)
[2021-10-26] MEDS: DONEPEZIL HCL 10 MG TABLET PO SCH (20:35)
[2021-10-26] MEDS: ATORVASTATIN CALCIUM 20 MG TABLET PO SCH (20:36)
--- NOTE | 2021-10-26 22:55 | PN ---
DATE: 10/26/2021 SUBJECTIVE: The patient was seen today, met with the staff, chart reviewed. Also, covering for Dr. Paiz. Staff reports no major behavioral problems. She is helpless, stays in her room most of the time, complains of feeling tired and also dealing with chronic pain of her right upper extremity. The patient denies feeling depressed, but tend to get anxious, tend to worry a lot about her future. OBSERVATION: VITAL SIGNS: Temperature 98.7, blood pressure 96/58, pulse 69, respirations 18, O2 sat 97%. Slept about 7-1/2 hours last night. GENERAL: The patient's appetite is fair. The patient is not having any side effects to medications. LABORATORY DATA: The patient's lab reviewed. CURRENT MEDICATIONS: Include Xanax 0.25 mg at night, Aricept 10 mg at night, trazodone 25 mg at bedtime p.r.n., Zoloft 75 mg daily, Namenda 5 mg daily, Seroquel 12.5 mg at night. ASSESSMENT: 1. Major depressive disorder. 2. Mild cognitive disorder. PLAN: Continue with the current treatment. LENGTH OF STAY: Three to five days. TESSA DR: Martha TID: [id number]
[2021-10-27 06:06] VITALS: BP 114/68
[2021-10-27] MEDS: CELECOXIB 100 MG CAPSULE PO SCH (08:21)
[2021-10-27] MEDS: CETIRIZINE HCL 10 MG TABLET PO SCH (08:21)
[2021-10-27] MEDS: ACETAMINOPHEN 325 MG TABLET PO PRN ×2 (08:21→20:13)
[2021-10-27] MEDS: SERTRALINE 50 MG TABLET. PO SCH (08:21)
[2021-10-27] MEDS: ASPIRIN ENTERIC COATED 81 MG TABLET.DR. PO SCH (08:21)
[2021-10-27] MEDS: MEMANTINE 5 MG TABLET. PO SCH (08:21)
[2021-10-27] MEDS: MULTIVITAMIN with MINERAL TABLET. PO SCH (08:21)
[2021-10-27] MEDS: LISINOPRIL 5 MG TABLET. PO SCH (08:21)
--- NOTE | 2021-10-27 09:38 | NUR ---
Nursing note: Pt in dining room at time of AM med pass and assessment. She is pleasant, med compliant and cooperative. PRN given for wrist pain with good effect. Pt states that her nausea is a little better this AM. She is currently in her room socializing with staff. Will continue to monitor.
--- NOTE | 2021-10-27 12:00 | NUR ---
WEEKLY ACTIVITY THERAPY NOTE Date of Admission: 10/03/21 Date of AT Assessment: 10/06 Precipitating behaviors that initiated intake and admission:paranoid, SI, wants to , sundowning, agitated Goal aimed: increase socialization and engagement Initial Goal: Pt will participate in at least three Activity Therapy sessions per week Goal changed 10/20:Pt will participate in all Activity Therapy sessions offered Weekly progress towards goal: did not achieve, 02/03 Group participation level: 1 mod, 3 full Weekly highlights: enjoyed [place] present and helped solve picture man , answered many picture puzzles correctly without assistance Sunday, listened to JEFF talk and guided meditation and participated in power poses Sunday Behaviors observed: withdrawn to room, pleasant, quiet Plan: no change to goal Beneficial adaptations: encouragement
[2021-10-27 15:07] VITALS: BP 100/60
--- NOTE | 2021-10-27 16:27 | NUR ---
Treatment team updates: Pt is medication compliant and cooperative with all cares. Pt is eating 50% of meals and sleeping on average 7.5 hours at night. At times, pt can be helpless and often withdrawn to her room. Pt has attended four groups this week with moderate participation. It is noted that pt has always been a loner and did not have many friends; so for her to be withdrawn, it is not unusual. Pt family is [facility] to get [facility] her go to [facility]. SW will continue to follow up with pt family and discharge pt as soon as placement is found.
--- NOTE | 2021-10-27 16:36 | NUR ---
BRIANNA contacted pt dtr/DPOA, Jaylene, to let her know that [facility] will be able to accept pt; however, they are not sure yet with their discharges on when that could be. They questioned potentially tomorrow but noted that it could be the beginning of the week. Once BRIANNA finds out, she can contact the family to make those arrangements.
[2021-10-27] MEDS: QUEtiapine 25 MG TABLET. PO SCH (20:11)
[2021-10-27] MEDS: DONEPEZIL HCL 10 MG TABLET PO SCH (20:11)
[2021-10-27] MEDS: ALPRAZolam 0.25 MG TABLET PO SCH (20:11)
[2021-10-27] MEDS: ATORVASTATIN CALCIUM 20 MG TABLET PO SCH (20:11)
--- NOTE | 2021-10-27 21:15 | PN ---
DATE: 10/27/2021 SUBJECTIVE: The patient was seen today, met with the staff, chart reviewed. Also, participated in the treatment review conference. The patient continues to be withdrawn, isolative, staying in her room, but interacts with the staff fairly well. The patient is not presenting with any major complaints except for chronic pain. The patient also having problems identifying her feelings. The patient not showing much insight to her problems. The patient denies of feeling depressed, but staff observed her to be emotional and some evidence of depression. The patient also having cognitive deficits. OBSERVATION: VITAL SIGNS: Stable. GENERAL: The patient's sleep has improved. The patient's behavior overall improved. Staff reports no falls. LABORATORY DATA: The patient's lab reviewed. CURRENT MEDICATIONS: Xanax 0.25 mg at night, Aricept 10 mg at night, trazodone 25 mg at bedtime, Zoloft 75 mg daily, Namenda 5 mg daily, and Seroquel 12.5 mg at night. The patient is not having any side effects to medications. ASSESSMENT: 1. Major depressive disorder. 2. Mild cognitive disorder. PLAN: To continue with treatment. LENGTH OF STAY: Three to five days and awaiting for placement. MARIELLE DR: Martha TID: [id number]
--- NOTE | 2021-10-27 21:20 | NUR ---
Before bed pt sat in a chair in her room. She was pleasant and cooperative with staff and took meds whole. PRN Tylenol was given for rt wrist pain and she reports good relief of pain. She has had no behaviors tonight.
[2021-10-28] MEDS: ACETAMINOPHEN 325 MG TABLET PO PRN ×2 (05:55→14:58)
[2021-10-28 06:03] VITALS: BP 109/66
[2021-10-28] MEDS: MULTIVITAMIN with MINERAL TABLET. PO SCH (08:39)
[2021-10-28] MEDS: SERTRALINE 50 MG TABLET. PO SCH (08:39)
[2021-10-28] MEDS: ASPIRIN ENTERIC COATED 81 MG TABLET.DR. PO SCH (08:39)
[2021-10-28] MEDS: CETIRIZINE HCL 10 MG TABLET PO SCH (08:39)
[2021-10-28] MEDS: MEMANTINE 5 MG TABLET. PO SCH (08:39)
[2021-10-28] MEDS: LISINOPRIL 5 MG TABLET. PO SCH (08:39)
[2021-10-28] MEDS: CELECOXIB 100 MG CAPSULE PO SCH (08:39)
[2021-10-28 15:45] VITALS: BP 101/58
--- NOTE | 2021-10-28 18:16 | NUR ---
Nsg Note; Lauren has been pleasant, cooperative and med compliant today. she comes to the dining room for meals but prefers to return to her room alone. she willingly engages in conversation with staff. she has been medicated with tylenol twice today for right wrist pain sec to a fracture. The wrist band is in place
[2021-10-28] MEDS: QUEtiapine 25 MG TABLET. PO SCH (20:31)
[2021-10-28] MEDS: ALPRAZolam 0.25 MG TABLET PO SCH (20:31)
[2021-10-28] MEDS: ATORVASTATIN CALCIUM 20 MG TABLET PO SCH (20:31)
[2021-10-28] MEDS: DONEPEZIL HCL 10 MG TABLET PO SCH (20:31)
--- NOTE | 2021-10-28 22:11 | NUR ---
Nursing Note The patient was located in her room for her assessment and medication pass. The patient was alert to name, date and location. The patient was compliant with her medication and took them whole. The patient was pleasant during interactions with this nurse. The patient is currently sleeping in her room.
--- NOTE | 2021-10-28 23:04 | PN ---
DATE: 10/28/2021 SUBJECTIVE: The patient was seen today, met with the staff, and chart reviewed. The patient's behavior has improved. She is still withdrawn, isolates herself, able to walk with a walker. The patient still has pain in the right arm. Staff reports no major behavior problems. The patient wanting to be home and states she is not happy, staying in the hospital. OBSERVATION: VITAL SIGNS: Temperature 97.2, blood pressure 109/66, pulse 77, respirations 20, O2 sat 96%. GENERAL: Slept about 5 hours last night. The patient's appetite is fair. CURRENT MEDICATIONS: Include Xanax 0.25 mg at night, Aricept 10 mg at night, trazodone 25 mg at bedtime, Zoloft 75 mg daily, Namenda 5 mg daily, Seroquel 12.5 mg at night. The patient is not having any side effects to medications. ASSESSMENT: 1. Major depressive disorder. 2. Mild cognitive disorder. PLAN: To continue with treatment. LENGTH OF STAY: 3-5 days. Awaiting for placement. DUNCAN DR: Martha TID: [id number]
[2021-10-29 06:04] VITALS: BP 129/66
[2021-10-29] MEDS: CETIRIZINE HCL 10 MG TABLET PO SCH (08:06)
[2021-10-29] MEDS: MEMANTINE 5 MG TABLET. PO SCH (08:06)
[2021-10-29] MEDS: ASPIRIN ENTERIC COATED 81 MG TABLET.DR. PO SCH (08:06)
[2021-10-29] MEDS: MULTIVITAMIN with MINERAL TABLET. PO SCH (08:07)
[2021-10-29] MEDS: SERTRALINE 50 MG TABLET. PO SCH (08:07)
[2021-10-29] MEDS: CELECOXIB 100 MG CAPSULE PO SCH (08:07)
[2021-10-29] MEDS: LISINOPRIL 5 MG TABLET. PO SCH (08:07)
[2021-10-29 15:55] VITALS: BP 101/58
--- NOTE | 2021-10-29 16:30 | NUR ---
Pt up adl for meals. Out to day room Has been pleasant and socializing with peers. Compliant with meds and cares.
[2021-10-29] MEDS: ACETAMINOPHEN 325 MG TABLET PO PRN (18:15)
--- NOTE | 2021-10-29 18:15 | NUR ---
Pt attempting to open her room door. Door opened quicker than pt realized and she fell forward catching herself on her hands. No injury noted. Will continue to monitor.
[2021-10-29] MEDS: QUEtiapine 25 MG TABLET. PO SCH (20:25)
[2021-10-29] MEDS: ALPRAZolam 0.25 MG TABLET PO SCH (20:26)
[2021-10-29] MEDS: DONEPEZIL HCL 10 MG TABLET PO SCH (20:26)
[2021-10-29] MEDS: ATORVASTATIN CALCIUM 20 MG TABLET PO SCH (20:26)
--- NOTE | 2021-10-29 23:01 | NUR ---
Pt pleasant and calm this evening. A/O x4. Denied pain from earlier fall. Compliant with whole medications and shower. Pt currently sleeping with bed alarm on.
[2021-10-30 06:32] VITALS: BP 103/60
[2021-10-30] MEDS: MULTIVITAMIN with MINERAL TABLET. PO SCH (08:21)
[2021-10-30] MEDS: ASPIRIN ENTERIC COATED 81 MG TABLET.DR. PO SCH (08:22)
[2021-10-30] MEDS: CETIRIZINE HCL 10 MG TABLET PO SCH (08:22)
[2021-10-30] MEDS: SERTRALINE 50 MG TABLET. PO SCH (08:22)
[2021-10-30] MEDS: LISINOPRIL 5 MG TABLET. PO SCH (08:22)
[2021-10-30] MEDS: CELECOXIB 100 MG CAPSULE PO SCH (08:22)
[2021-10-30] MEDS: MEMANTINE 5 MG TABLET. PO SCH (08:22)
[2021-10-30 08:23] LABS: BASO % 0 % (0-3); EOS # 0.2 x10^3/uL (0.0-0.7); EOS % 3 % (0-3); HEMATOCRIT 34.2 % (36.0-47.0); HEMOGLOBIN 11.3 g/dL (12.0-15.5); LYMPH # 1.4 x10^3/uL (1.0-4.8); LYMPH % 17 % (24-48); MEAN CORPUSCULAR HEMOGLOBIN 31 pg (25-35); MEAN CORPUSCULAR HGB CONC 33 g/dL (31-37); MEAN CORPUSCULAR VOLUME 93 fL (79-100); MONO # 0.7 x10^3/uL (0.0-1.1); MONO % 8 % (0-9); NEUT % 72 % (31-73); PLATELET COUNT 209 x10^3/uL (140-400); RED BLOOD COUNT 3.66 x10^6/uL (3.50-5.40); RED CELL DISTRIBUTION WIDTH 15.1 % (11.5-14.5); WHITE BLOOD COUNT 8.4 x10^3/uL (4.0-11.0)
[2021-10-30] MEDS: ACETAMINOPHEN 325 MG TABLET PO PRN ×2 (08:28→20:08)
[2021-10-30 08:31] LABS: ALBUMIN 3.2 g/dL (3.4-5.0); ALBUMIN/GLOBULIN RATIO 0.9 (1.0-1.7); CALCIUM 8.4 mg/dL (8.5-10.1); CREATININE 0.8 mg/dL (0.6-1.0); GFR 68.5; POTASSIUM 4.4 mmol/L (3.5-5.1); TOTAL BILIRUBIN 0.4 mg/dL (0.2-1.0); TOTAL PROTEIN 6.6 g/dL (6.4-8.2)
[2021-10-30 16:00] VITALS: BP 131/71
--- NOTE | 2021-10-30 18:02 | NUR ---
Patient has been calm, cooperative, and withdrawn throughout most of this shift. Patient did spend a small amount of time in the day room this morning, otherwise she was withdrawn to her room throughout this shift. She complained of right wrist pain this morning, prn medication provided per eMAR. Will continue to monitor and report to oncoming shift.
--- NOTE | 2021-10-30 18:42 | PN ---
DATE: 10/29/2021 SUBJECTIVE: This is a late entry for the service date 10/29/2021 via telehealth, discussed with the staff and chart reviewed. The patient's behavior has improved. The patient prefers to stay in her room. The patient also able to walk with a walker. The patient also beginning to show mild cognitive deficits, increased anxiety and also repetitive with the statements. OBSERVATION: VITAL SIGNS: Temperature 98.9, blood pressure 125/66, pulse 67, respirations 18, O2 sat 96%. Slept about 7 hours last night. GENERAL: The patient's appetite is fair. LABORATORY DATA: The patient's lab reviewed. CURRENT MEDICATIONS: Include Xanax 0.25 mg at night, Aricept 10 mg at night, trazodone 25 mg at bedtime, Zoloft 75 mg daily, and Namenda 5 mg daily. The patient is also on Seroquel 12.5 mg at night. The patient is not exhibiting any side effects to medications. ASSESSMENT: 1. Major depressive disorder. 2. Mild cognitive disorder. PLAN: To continue with treatment. LENGTH OF STAY: Three to five days. ASHKAN DR: Martha TID: [id number]
--- NOTE | 2021-10-30 18:45 | PN ---
DATE: 10/30/2021 SUBJECTIVE: The patient was seen today, met with the staff, chart reviewed, and also covering for Dr. Paiz. The patient is not presenting with any major behavior problems. Staff reports no major incidents, no falls. She walks with a walker. OBSERVATION: VITAL SIGNS: Temperature 97.6, blood pressure 103/60, pulse 76, respirations 18, O2 sat 93%. GENERAL: Slept about 8 hours last night. The patient's appetite is fair. CURRENT MEDICATIONS: Aricept 10 mg daily, Zoloft 75 mg daily, Namenda 5 mg daily, Seroquel 12.5 mg at night. The patient is also on Xanax 0.25 mg at night and trazodone 25 mg at night. She is not having any side effects to medications. ASSESSMENT: 1. Major depressive disorder. 2. Mild cognitive disorder. PLAN: To continue with current treatment. LENGTH OF STAY: Three to five days. MARIA LUISA/DELVIS DR: Martha TID: [id number]
[2021-10-30] MEDS: DONEPEZIL HCL 10 MG TABLET PO SCH (20:04)
[2021-10-30] MEDS: ATORVASTATIN CALCIUM 20 MG TABLET PO SCH (20:04)
[2021-10-30] MEDS: ALPRAZolam 0.25 MG TABLET PO SCH (20:05)
[2021-10-30] MEDS: QUEtiapine 25 MG TABLET. PO SCH (20:05)
--- NOTE | 2021-10-30 23:42 | NUR ---
Pt located in her room this evening sitting calmly. Pleasant and interactive. Compliant with whole medications. Pt currently sleeping.
[2021-10-31 06:16] VITALS: BP 158/76
[2021-10-31] MEDS: SERTRALINE 50 MG TABLET. PO SCH (07:53)
[2021-10-31] MEDS: MEMANTINE 5 MG TABLET. PO SCH (07:53)
[2021-10-31] MEDS: MULTIVITAMIN with MINERAL TABLET. PO SCH (07:53)
[2021-10-31] MEDS: CELECOXIB 100 MG CAPSULE PO SCH (07:53)
[2021-10-31] MEDS: LISINOPRIL 5 MG TABLET. PO SCH (07:54)
[2021-10-31] MEDS: ASPIRIN ENTERIC COATED 81 MG TABLET.DR. PO SCH (07:54)
[2021-10-31] MEDS: CETIRIZINE HCL 10 MG TABLET PO SCH (07:54)
[2021-10-31] MEDS: ACETAMINOPHEN 325 MG TABLET PO PRN ×2 (08:00→20:49)
[2021-10-31 16:25] VITALS: BP 121/61
--- NOTE | 2021-10-31 18:30 | NUR ---
Patient has been calm, cooperative, and withdrawn throughout most of this shift. Patient spent more time in the day room today and was social with peers. She complained of right wrist pain this morning, prn medication provided per eMAR. Will continue to monitor and report to oncoming shift.
[2021-10-31] MEDS: ATORVASTATIN CALCIUM 20 MG TABLET PO SCH (20:45)
[2021-10-31] MEDS: DONEPEZIL HCL 10 MG TABLET PO SCH (20:45)
[2021-10-31] MEDS: ALPRAZolam 0.25 MG TABLET PO SCH (20:45)
[2021-10-31] MEDS: QUEtiapine 25 MG TABLET. PO SCH (20:45)
--- NOTE | 2021-10-31 22:28 | PN ---
DATE: 10/31/2021 SUBJECTIVE: The patient was seen today, met with the staff and chart reviewed. Staff reports no major behavior problems. She tends to isolate herself. The patient also exhibiting mild cognitive deficits. Overall, no major behavioral issues. OBSERVATION: VITAL SIGNS: Temperature 97.9, blood pressure 158/76, pulse 68, respirations 18, O2 sat 97%. GENERAL: Slept about 7-1/2 hours last night. The patient's appetite improved. CURRENT MEDICATIONS: Include Aricept 10 mg daily, Zoloft 75 mg daily, Namenda 5 mg daily and Seroquel 12.5 mg at night. The patient is also on trazodone 25 mg at night for sleep and Xanax 0.25 mg at night for anxiety. The patient denies of any side effects to medication. ASSESSMENT: 1. Major depressive disorder. 2. Mild cognitive disorder. PLAN: To continue with treatment. LENGTH OF STAY: Three to five days. OSMAN DR: Martha TID: [id number]
--- NOTE | 2021-10-31 22:51 | NUR ---
Pt located in her room sitting calmly. Pleasant and cooperative. Compliant with whole medications. PRN Tylenol administered per pt request. Pt currently sleeping.
[2021-11-01] MEDS: ACETAMINOPHEN 325 MG TABLET PO PRN ×3 (05:48→20:44)
[2021-11-01 06:11] VITALS: BP 117/68
[2021-11-01] MEDS: SERTRALINE 50 MG TABLET. PO SCH (08:17)
[2021-11-01] MEDS: CETIRIZINE HCL 10 MG TABLET PO SCH (08:17)
[2021-11-01] MEDS: MULTIVITAMIN with MINERAL TABLET. PO SCH (08:18)
[2021-11-01] MEDS: LISINOPRIL 5 MG TABLET. PO SCH (08:18)
[2021-11-01] MEDS: CELECOXIB 100 MG CAPSULE PO SCH (08:18)
[2021-11-01] MEDS: ASPIRIN ENTERIC COATED 81 MG TABLET.DR. PO SCH (08:18)
[2021-11-01] MEDS: MEMANTINE 5 MG TABLET. PO SCH (08:18)
[2021-11-01 15:40] VITALS: BP 141/63
--- NOTE | 2021-11-01 17:57 | NUR ---
Patient has been anxious, cooperative, and withdrawn throughout most of this shift. Patient complained of a profoundly demented peer that repeatedly wandered into her room and she was increasingly anxious about him coming in as she believes he may harm her. Attempted multiple verbal redirections informing her that the other patient would not harm her, she continues to be somewhat anxious. She complained of right wrist pain this morning, prn medication provided per eMAR. Will continue to monitor and report to oncoming shift.
[2021-11-01] MEDS: QUEtiapine 25 MG TABLET. PO SCH (20:45)
[2021-11-01] MEDS: ATORVASTATIN CALCIUM 20 MG TABLET PO SCH (20:45)
[2021-11-01] MEDS: DONEPEZIL HCL 10 MG TABLET PO SCH (20:45)
[2021-11-01] MEDS: ALPRAZolam 0.25 MG TABLET PO SCH (20:45)
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
--- NOTE | 2021-11-01 22:00 | NUR ---
Nursing Note pt obsessively comes out to wang to ask if she can close her door, has come out to the wang at least 5 times. Has very poor short term memory. Denies other complaints except pain to her right wrist tylenol given.
[2021-11-02 06:29] VITALS: BP 115/51
[2021-11-02] MEDS: CELECOXIB 100 MG CAPSULE PO SCH (08:27)
[2021-11-02] MEDS: ASPIRIN ENTERIC COATED 81 MG TABLET.DR. PO SCH (08:27)
[2021-11-02] MEDS: CETIRIZINE HCL 10 MG TABLET PO SCH (08:28)
[2021-11-02] MEDS: MEMANTINE 5 MG TABLET. PO SCH (08:28)
[2021-11-02] MEDS: MULTIVITAMIN with MINERAL TABLET. PO SCH (08:28)
[2021-11-02] MEDS: SERTRALINE 50 MG TABLET. PO SCH (08:29)
[2021-11-02] MEDS: LISINOPRIL 5 MG TABLET. PO SCH (08:32)
[2021-11-02] MEDS: ACETAMINOPHEN 325 MG TABLET PO PRN ×2 (10:41→20:40)
--- NOTE | 2021-11-02 13:47 | NUR ---
Nurse Day Shift Note: Pt presents with pleasant mood/affect. Pt is medication compliant. Pt is low-zamudio on the unit and is able to make needs known to staff. Pt is engageable when approached by staff. Pt is noted to spend time in the hallway, interacting with peers. Pt follows rules and routine on the unit. Pt's vitals are WNL. Pt slept 8 hours last night. Pt is medication compliant. Pt continues to have a good appetite. Will continue to monitor.
[2021-11-02 15:51] VITALS: BP 108/62
[2021-11-02] MEDS: QUEtiapine 25 MG TABLET. PO SCH (20:38)
[2021-11-02] MEDS: DONEPEZIL HCL 10 MG TABLET PO SCH (20:40)
[2021-11-02] MEDS: ALPRAZolam 0.25 MG TABLET PO SCH (20:40)
[2021-11-02] MEDS: ATORVASTATIN CALCIUM 20 MG TABLET PO SCH (20:40)
--- NOTE | 2021-11-02 22:13 | PN ---
DATE: 11/02/2021 SUBJECTIVE: The patient is seen today, met with the staff. Chart reviewed. Staff reports no major behavioral problems. She is cooperative. Still anxious that was related to other male dressed and walking into her room. Apparently, she was in a panic state. The patient wants to keep herself busy, pacing constantly, walks with a walker, also exhibiting high level of anxiety and worried. The patient also has some hearing problems. The patient also has some cognitive deficits. The patient is unrealistic with her goals. LABORATORY DATA: The patient's lab reviewed. CURRENT MEDICATIONS: Aricept 10 mg daily, Zoloft 75 mg daily, Namenda 5 mg daily, Seroquel 12.5 mg at night, and trazodone 25 mg at night for sleep. The patient is also on Xanax 0.25 mg at night for anxiety. The patient is not having any major side effects to medications. ASSESSMENT: 1. Major depressive disorder. 2. Mild cognitive disorder. PLAN: To continue with treatment. LENGTH OF STAY: Three to five days. MORAIMA DR: Martha TID: [id number]
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
[2021-11-03 06:11] VITALS: BP 123/62
[2021-11-03] MEDS: SERTRALINE 50 MG TABLET. PO SCH (08:04)
[2021-11-03] MEDS: ACETAMINOPHEN 325 MG TABLET PO PRN ×2 (08:05→20:33)
[2021-11-03] MEDS: CETIRIZINE HCL 10 MG TABLET PO SCH (08:05)
[2021-11-03] MEDS: MULTIVITAMIN with MINERAL TABLET. PO SCH (08:06)
[2021-11-03] MEDS: MEMANTINE 5 MG TABLET. PO SCH (08:06)
[2021-11-03] MEDS: CELECOXIB 100 MG CAPSULE PO SCH (08:06)
[2021-11-03] MEDS: ASPIRIN ENTERIC COATED 81 MG TABLET.DR. PO SCH (08:07)
[2021-11-03] MEDS: LISINOPRIL 5 MG TABLET. PO SCH (08:07)
--- NOTE | 2021-11-03 11:50 | NUR ---
WEEKLY ACTIVITY THERAPY NOTE Date of Admission: 10/03/21 Date of AT Assessment: 10/06 Precipitating behaviors that initiated intake and admission:paranoid, SI, wants to , sundowning, agitated Goal aimed: increase socialization and engagement Initial Goal: Pt will participate in at least three Activity Therapy sessions per week Goal changed 10/20:Pt will participate in all Activity Therapy sessions offered Weekly progress towards goal: did not achieve, / Group participation level: 1 full Weekly highlights: accepted word searched for self guided leisure Sunday afternoon Behaviors observed: withdrawn to room, social Plan: no change to goal Beneficial adaptations: encouragement
--- NOTE | 2021-11-03 13:20 | NUR ---
Nsg Note; Lauren prefers her room between meals, refusing to come to the dayroom. she eats her meals and takes her meds without difficulty. she will get upset if one of the male patients with dementia wanders into her room, almost in a panic
[2021-11-03 15:54] VITALS: BP 161/70
[2021-11-03] MEDS: ATORVASTATIN CALCIUM 20 MG TABLET PO SCH (20:31)
[2021-11-03] MEDS: DONEPEZIL HCL 10 MG TABLET PO SCH (20:31)
[2021-11-03] MEDS: ALPRAZolam 0.25 MG TABLET PO SCH (20:32)
[2021-11-03] MEDS: QUEtiapine 25 MG TABLET. PO SCH (20:32)
--- NOTE | 2021-11-03 23:06 | NUR ---
Pt located in her room this evening sitting in a chair. Pt appears anxious and repeatedly states that a man came into her room and saw her in the bathroom. Attempted to explain to pt that the man was confused and didn't mean to scare her. However, pt continued to repeat her statements about the "man coming into her room." Pt compliant with whole medications. PRN Tylenol administered per pt request for right wrist pain. Pt currently sleeping.
--- NOTE | 2021-11-04 01:37 | PN ---
DATE: 11/03/2021 SUBJECTIVE: The patient was seen today, met with the staff. Chart reviewed and also participated in the treatment review meeting. Staff reports no major behavior problems. The patient is somewhat isolative, stays in her room, tend to get anxious, worried. Denies of feeling depressed. OBSERVATION: VITAL SIGNS: Temperature 98.5, blood pressure 123/62, pulse 82, respirations 20, O2 sat 94%. GENERAL: Slept about 6 hours last night. The patient's appetite is fair. The patient is not having any side effects to medications. ASSESSMENT: 1. Major depressive disorder. 2. Mild cognitive disorder. PLAN: To continue with treatment. LENGTH OF STAY: 3-5 days. MARIA LUISA/CAMERON/KENNY DR: Martha TID: [id number]
--- NOTE | 2021-11-04 05:49 | NUR ---
Pt woke up congested with a runny nose, sore throat and cough. Pt states that she is coughing up clear sputum. Lungs sounds clear. Orders placed for Covid test, CBC, CMP. Pt given mask to wear.
[2021-11-04 06:26] VITALS: BP 120/63
[2021-11-04 06:44] LABS: BASO % 1 % (0-3); EOS # 0.2 x10^3/uL (0.0-0.7); EOS % 4 % (0-3); HEMATOCRIT 32.3 % (36.0-47.0); HEMOGLOBIN 10.7 g/dL (12.0-15.5); LYMPH # 0.6 x10^3/uL (1.0-4.8); LYMPH % 12 % (24-48); MEAN CORPUSCULAR HEMOGLOBIN 31 pg (25-35); MEAN CORPUSCULAR HGB CONC 33 g/dL (31-37); MEAN CORPUSCULAR VOLUME 94 fL (79-100); MONO # 0.8 x10^3/uL (0.0-1.1); MONO % 16 % (0-9); NEUT # 3.5 x10^3uL (1.8-7.7); NEUT % 68 % (31-73); PLATELET COUNT 183 x10^3/uL (140-400); RED BLOOD COUNT 3.43 x10^6/uL (3.50-5.40); RED CELL DISTRIBUTION WIDTH 15.6 % (11.5-14.5); WHITE BLOOD COUNT 5.2 x10^3/uL (4.0-11.0)
[2021-11-04 06:54] LABS: ALBUMIN 3.2 g/dL (3.4-5.0); CALCIUM 8.6 mg/dL (8.5-10.1); CREATININE 0.7 mg/dL (0.6-1.0); GFR 79.9; POTASSIUM 4.1 mmol/L (3.5-5.1); TOTAL BILIRUBIN 0.3 mg/dL (0.2-1.0); TOTAL PROTEIN 6.4 g/dL (6.4-8.2)
[2021-11-04] MEDS: CELECOXIB 100 MG CAPSULE PO SCH (07:44)
[2021-11-04] MEDS: MULTIVITAMIN with MINERAL TABLET. PO SCH (07:44)
[2021-11-04] MEDS: SERTRALINE 50 MG TABLET. PO SCH (07:44)
[2021-11-04] MEDS: MEMANTINE 5 MG TABLET. PO SCH (07:44)
[2021-11-04] MEDS: ASPIRIN ENTERIC COATED 81 MG TABLET.DR. PO SCH (07:45)
[2021-11-04] MEDS: LISINOPRIL 5 MG TABLET. PO SCH (07:45)
[2021-11-04] MEDS: CETIRIZINE HCL 10 MG TABLET PO SCH (07:45)
--- NOTE | 2021-11-04 11:10 | NUR ---
Nursing Note Pt up in dining room, pleasant and cooperative. Compliant with meds. No cough this morning. Labs WNL currently covid pending. States she has intermittent pain to her right wrist. Pt states she has a sore throat and mild cough.
[2021-11-04 15:58] VITALS: BP 96/58
[2021-11-04] MEDS ORDERED: CETI10TA16 PO (16:14)
[2021-11-04] MEDS ORDERED: METH114C3 TP (16:16)
[2021-11-04] MEDS ORDERED: ACET325T21 PO (16:17)
[2021-11-04] MEDS ORDERED: SERT50TA PO (16:18)
[2021-11-04] MEDS ORDERED: TRAZ-120 PO (16:19)
[2021-11-04] MEDS ORDERED: MEMA10TA PO (16:32)
[2021-11-04] MEDS ORDERED: QUET25TA5 PO (16:32)
[2021-11-04] MEDS ORDERED: ONDA4TAB12 PO (16:34)
[2021-11-04] MEDS ORDERED: MAG-124 PO (16:34)
[2021-11-04] MEDS ORDERED: MAGN24003 PO (16:35)
--- NOTE | 2021-11-04 16:45 | RAD ---
Chest AP portable at 1616: Reason for examination: Sore throat. Covid positive. Comparison is made to previous study dated 10/17/2021. The heart size is normal. Mediastinum is unremarkable. Lung saravia show some linear densities possibl y representing atelectasis or scarring at the lung bases. No consolidated infiltrates or gross pleura l effusions are seen. No acute bony abnormalities are seen. Impression: Linear densities posterolateral representing atelectasis or scarring at the lung bases. No consolidat ed infiltrates evident. Electronically signed by: Chrissy Ruano MD (11/04/2021 4:42 PM) [id number]
--- NOTE | 2021-11-04 16:56 | NUR ---
Transition Record was faxed to follow-up provider with the following elements: Reason for admission, procedures, tests, principal diagnosis, pending studies, patient instructions, 21/05 contact information for unit, phone number to obtain pending test results, plan for follow-up care, physician follow-up, advanced directive information, and medication list with dose, duration and instructions. This information was included in the following documents: History and physical, lab results, study results, progress notes, social work planning form, DC instruction form, patient visit summary, and medication reconciliation form. Date & time record faxed: 11/04/21 1630 Record faxed to: Med surg [facility] [id number] Record discussed with/ report given to: Sima HINKLE Med surg
--- NOTE | 2021-11-04 18:45 | DS ---
DATE OF DISCHARGE: 11/04/2021 FINAL DIAGNOSES: AXIS I: 1. Major depressive disorder, recurrent. 2. Anxiety disorder, unspecified. 3. Mild cognitive disorder. AXIS II: None. 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 REASON ADMISSION: This 81-year-old female referred to [facility] by her primary care physicians in [facility] on account of worsening symptoms of depression, anxiety, suicidal thoughts and also making statements "wanting to ." The patient also getting confused at times. The patient also having difficulty with sleep, decreased appetite. The patient apparently failed outpatient treatment. HOSPITAL COURSE: The patient had a physical exam and routine lab work and also chest x-ray, abdominal x-ray and CT scan of the head. CT scan of head showed no acute intracranial process, also showed age-related atrophy and evidence of chronic small vessel disease. The patient's labs were within normal range except for hemoglobin of 10.7, glucose 122, BUN/creatinine ratio 26. The patient's hemoglobin A1c was 5.8. The patient's HDL cholesterol was 78. The patient's lipid profile were within normal range. The patient was involved in the program including individual therapy, group therapy, activity therapy. The patient participated in all the activities. The patient mainly focused on going back home to her , also unrealistic with her goals including wanting to drive. The patient's medications included Namenda 5 mg daily, Zoloft 75 mg daily, Seroquel 12.5 mg at night, cetirizine 10 mg daily, Lipitor 40 mg at night, Celebrex 20 mg daily, lisinopril 5 mg daily, aspirin 81 mg daily, Aricept 10 mg at night, Xanax 0.25 mg at night, trazodone 25 mg at bedtime p.r.n. The patient did not have any side effects to medications. The patient did not have any falls. The patient frequently complained of pain in her right wrist. The patient also recently started having sore throat and mild cough. The patient's COVID test showed positive. DISCHARGE PLANS: The patient was transferred to the medical floor and the patient will continue on the medication listed above. The patient's mental status improved. The patient's gait is fairly steady, walks with a walker. TESSA DR: Martha TID: [id number]
== END 2021-11-04 17:11 | disposition short-term general hospital (02) | DRG 885 ==
LOC: GEROPSY 16:00
PROVIDERS: ADMIT Psychiatry & Neurology Psychiatry; ATTEND Psychiatry & Neurology Psychiatry
DX: F33.9 Major depressive disorder, recurrent, unspecified (principal); U07.1 COVID-19; R45.851 Suicidal ideations; E78.5 Hyperlipidemia, unspecified; F03.90 Unspecified dementia, unspecified severity, without behavioral disturbance, psychotic disturbance, mood disturbance, and anxiety; Z66 Do not resuscitate; F41.1 Generalized anxiety disorder; G89.29 Other chronic pain; I10 Essential (primary) hypertension; M15.9 Polyosteoarthritis, unspecified; Z96.653 Presence of artificial knee joint, bilateral; Z79.82 Long term (current) use of aspirin; Z79.899 Other long term (current) drug therapy; Z91.81 History of falling; Z88.0 Allergy status to penicillin
CPT/HCPCS: 36415; 70450; 71045; 71046; 73110; 74019; 80053; 80061; 81001; 82306; 82607; 83036; 83540; 83550; 83735; 84436; 84443; 84480; 85025; 85379; 86592; 87086; 93005; Q0162; U0003; 97110; 97116; 97530; 97535

== ENCOUNTER 2021-11-04 17:09 | Inpatient (IN) | payer MEDICARE, OTHER ==
[~2021-11-04] VITALS: Ht 152.4 cm; Wt 59.0 kg
[~2021-11-04 17:09] MED LIST: ACET325T21 PO; ALPR0.254 PO; ASPI-171 PO; ATOR40TA59 PO; CELE-20 PO; CETI10TA16 PO; DONE10TA7 PO; LIDO700A21 TP; LISI5TAB15 PO; MAG-124 PO; MAGN24003 PO; MEMA10TA PO; METH114C3 TP; MULT-445 PO; ONDA4TAB12 PO; QUET25TA5 PO; SERT50TA PO; TRAZ-120 PO
--- NOTE | 2021-11-04 18:01 | NUR ---
NURS NOTE PT ARRIVED VIA WHEELCHAIR A&OX4 ON ROOM AIR. PT IS ORIENTED TO UNIT AND EDUCATED ON ISOLATION PROTOCOL. PT IN BED WATCHING TV. ALL NEEDS MET AT THIS TIME. WILL CONTINUE TO MONITOR.
[2021-11-04 18:04] VITALS: BP 145/74
[2021-11-04] MEDS ORDERED: MAG HYDROX/AL HYDROX/SIMETH 30 ML ORAL.SUSP PO PRN (18:15)
[2021-11-04] MEDS ORDERED: METHYL SALICYLATE/MENTHOL TOPICAL OINTMENT 57GM TUBE. TP PRN (18:30)
[2021-11-04] MEDS ORDERED: MAGNESIUM HYDROXIDE 2,400 MG/30 ML ORAL.SUSP. PO PRN (18:30)
[2021-11-04 19:00] VITALS: BP 150/67
[2021-11-04] MEDS: PATCH REMOVAL. MC SCH (20:53)
[2021-11-04] MEDS: ACETAMINOPHEN 325 MG TABLET PO PRN (20:54)
[2021-11-04] MEDS: DONEPEZIL HCL 10 MG TABLET PO SCH (20:54)
[2021-11-04] MEDS: QUEtiapine 25 MG TABLET. PO SCH (20:55)
[2021-11-04] MEDS: ALPRAZolam 0.25 MG TABLET PO SCH (20:56)
[2021-11-04] MEDS: traZODone 50 MG TABLET. PO PRN (21:15)
[2021-11-04 23:02] VITALS: BP 91/54
[2021-11-05 05:52] VITALS: BP 138/75
[2021-11-05] MEDS: LISINOPRIL 5 MG TABLET. PO SCH (09:07)
[2021-11-05] MEDS: MULTIVITAMIN with MINERAL TABLET. PO SCH (09:07)
[2021-11-05] MEDS: ATORVASTATIN CALCIUM 20 MG TABLET PO SCH (09:07)
[2021-11-05] MEDS: ASPIRIN ENTERIC COATED 81 MG TABLET.DR. PO SCH (09:08)
[2021-11-05] MEDS: SERTRALINE 50 MG TABLET. PO SCH (09:08)
[2021-11-05] MEDS: CETIRIZINE HCL 10 MG TABLET PO SCH (09:09)
[2021-11-05] MEDS: MEMANTINE 10 MG TABLET. PO SCH (09:09)
[2021-11-05] MEDS: LIDOCAINE (700MG/PATCH) PATCH. TP SCH (09:42)
[2021-11-05] MEDS: ACETAMINOPHEN 325 MG TABLET PO PRN ×2 (09:43→20:29)
--- NOTE | 2021-11-05 10:06 | HP ---
DATE OF SERVICE: 11/05/2021 ADMIT DATE: 11/04/2021 ATTENDING PHYSICIAN: Dr. Jc. CHIEF COMPLAINT: COVID positive swab. HISTORY OF PRESENT ILLNESS: The patient is an 81-year-old female who was [facility]. We had seen her up there. She had been quite stable. She has had both her vaccines, the Pfizer brand. She developed a little sore throat. No fevers, chills, shortness of breath. Her oxygen saturations are quite adequate on room air. She had a positive swab resulting in transferring down here for isolation. At this time, she has no symptoms. She is not dyspneic. I suspect she has contracted the Omicron variant of coronavirus in a fully vaccinated patient. Once again, she remains a very, very asymptomatic. PAST MEDICAL HISTORY: Dementia. She also has degenerative arthritis, essential hypertension and some behavioral issues. CURRENT MEDICATIONS: On the Behavioral Unit indicated she was taking Tylenol, Xanax, aspirin, Lipitor, Celebrex, cetirizine, Aricept, Lidoderm patch, lisinopril, Namenda, multivitamin, Seroquel, Zoloft and trazodone. ALLERGIES: SHE IS ALLERGIC TO PENICILLIN. SOCIAL HISTORY: She has been a smoker in the past, not smoking now, no alcohol use. FAMILY HISTORY: Unobtainable. REVIEW OF SYSTEMS: Significant for little sore throat. No fevers, chills. She has been fully vaccinated. All other system reviews to be negative. PHYSICAL EXAMINATION: GENERAL: When I saw her, this is a very pleasant elderly female who is slightly confused. VITAL SIGNS: Her initial vital signs showed a blood pressure of 138/75 mmHg, pulse is 75 and regular, oxygen saturation 96% on room air and she was afebrile with a temperature of 97.7 degrees Fahrenheit. HEENT: Head is without trauma. Pupils are reactive. Sclerae nonicteric. Oropharynx is clear. NECK: Supple, no bruits. LUNGS: Clear to auscultation. CARDIOVASCULAR: Showed regular heart tones. ABDOMEN: Soft. EXTREMITIES: Without edema. NEUROLOGIC FINDINGS: Focally intact. Pleasantly confused. SKIN: Warm and dry. LABORATORY DATA: Hemoglobin is 10.7 g/dL with a white count of 5200. Electrolytes within normal range. Nonfasting blood sugar 122. Hemoglobin A1c is normal. Transaminases were normal. Serology positive for SARS coronavirus on 11/04. ASSESSMENT: 1. This 81-year-old female has asymptomatic COVID infection. I suspect she has the Omicron variant with very minimal if any symptoms at this time. She is not requiring oxygen. Oxygen saturation 96% on room air. Chest x-ray is unremarkable. 2. Underlying dementia with behavioral issues. 3. Essential hypertension. 4. Degenerative arthritis. PLAN: 1. Admit to the medical floor. 2. COVID isolation. 3. Continue some home and psychiatric meds. 4. There is no necessity for treatment of COVID, whatsoever at this time. AMY DR: Benigno TID: [id number] CC: NÉSTOR WONG MD
[2021-11-05 11:03] VITALS: BP 96/60
[2021-11-05 15:16] VITALS: BP 117/67
--- NOTE | 2021-11-05 15:56 | NUR ---
Nursing shift note: Patient alert and oriented x4, pleasant, cooperative. She walks to bathroom with one assist. She has pain at right shoulder and right lower arm that are alleviated by Acetaminophen PO and Lidocaine patch. Her vital signs are stable, on room air. Will continue to monitor.
[2021-11-05 20:25] VITALS: BP 102/62
[2021-11-05] MEDS: QUEtiapine 25 MG TABLET. PO SCH (20:28)
[2021-11-05] MEDS: ALPRAZolam 0.25 MG TABLET PO SCH (20:28)
[2021-11-05] MEDS: traZODone 50 MG TABLET. PO PRN (20:28)
[2021-11-05] MEDS: PATCH REMOVAL. MC SCH (20:29)
[2021-11-05] MEDS: DONEPEZIL HCL 10 MG TABLET PO SCH (20:29)
[2021-11-06 00:08] VITALS: BP 95/63
[2021-11-06 06:13] VITALS: BP 154/69
[2021-11-06] MEDS: MULTIVITAMIN with MINERAL TABLET. PO SCH (08:22)
[2021-11-06] MEDS: MEMANTINE 10 MG TABLET. PO SCH (08:23)
[2021-11-06] MEDS: ASPIRIN ENTERIC COATED 81 MG TABLET.DR. PO SCH (08:23)
[2021-11-06] MEDS: LISINOPRIL 5 MG TABLET. PO SCH (08:24)
[2021-11-06] MEDS: ATORVASTATIN CALCIUM 20 MG TABLET PO SCH (08:24)
[2021-11-06] MEDS: CETIRIZINE HCL 10 MG TABLET PO SCH (08:24)
[2021-11-06] MEDS: SERTRALINE 50 MG TABLET. PO SCH (08:25)
[2021-11-06] MEDS: LIDOCAINE (700MG/PATCH) PATCH. TP SCH (08:32)
--- NOTE | 2021-11-06 09:16 | PN ---
DATE: 11/06/2021 ATTENDING PHYSICIAN: Dr. Jc. SUBJECTIVE: Mild sore throat. No other symptoms. OBJECTIVE FINDINGS: VITAL SIGNS: Blood pressure this morning is 154/69, pulse is 78 and regular, temperature 97.3 degrees Fahrenheit, oxygen saturation 92% on room air. HEENT: Head is without trauma. Pupils are reactive. Sclerae nonicteric. The oropharynx is clear. NECK: Supple, no bruits identified. LUNGS: Clear. CARDIOVASCULAR: Showed regular heart tones. No gallops. Peripheral pulses palpable and auscultation. ABDOMEN: Soft. EXTREMITIES: Without edema. NEUROLOGIC FINDINGS: Mildly confused. ASSESSMENT: 1. An 81-year-old female with asymptomatic COVID infection. She has been vaccinated. I suspect the Omicron variant. She is totally asymptomatic. 2. Underlying dementia with behavioral issues. 3. Essential hypertension. 4. Degenerative arthritis. PLAN: 1. COVID isolation. 2. Diet as tolerated. 3. Some home meds and psychiatric meds were restarted. 4. No treatment for COVID at this time. AMY DR: Benigno TID: [id number]
--- NOTE | 2021-11-06 09:17 | NUR ---
NURS NOTE PT PULSE RATE WAS CHARTED 18 EARLIER THIS MORNING. THIS RN ASSESSED PT AND TOOK APICAL HEART RATE OF 78. PT IN BED EATING BREAKFAST AND C/O NO PAIN OR DISCOMFORT AT THIS TIME. MORNING MEDICATIONS GIVEN. WILL CONTINUE TO MONITOR. ALL NEEDS MET AT THIS TIME.
[2021-11-06 09:18] VITALS: BP 101/65
[2021-11-06 10:48] VITALS: BP 92/55
[2021-11-06 15:09] VITALS: BP 97/59
[2021-11-06 20:12] VITALS: BP 145/78
[2021-11-06] MEDS: PATCH REMOVAL. MC SCH (21:00)
[2021-11-06] MEDS: DONEPEZIL HCL 10 MG TABLET PO SCH (21:36)
[2021-11-06] MEDS: ACETAMINOPHEN 325 MG TABLET PO PRN (21:36)
[2021-11-06] MEDS: ALPRAZolam 0.25 MG TABLET PO SCH (21:36)
[2021-11-06] MEDS: traZODone 50 MG TABLET. PO PRN (21:36)
[2021-11-06] MEDS: QUEtiapine 25 MG TABLET. PO SCH (21:36)
[2021-11-07 05:38] VITALS: BP 107/68
--- NOTE | 2021-11-07 08:17 | PDOC ---
Exam Note: Rip Note: This note is a late entry for 11/06/2021 covers elements not covered in my initial note. Subjective: The patient was seen on telehealth rounds in the evening of 11/06/2021 due to COVID-19 exposure on our unit and half the patients have been COVID positive and transferred to the Medical/Surgical Floor. Discussed with Elisabeth HINKLE and reviewed the chart. Also discussed the patient with Dr. Avendano who covered for me for the past 2 weeks. Reviewed current and past records, labs, etc. I have been asked to follow the patient for psychiatric consult on [facility] from [facility] due to COVID positive status. Dr. Jc is the attending cooler man on [facility]. She has a runny nose and sore throat. She is frequently reasonably oriented and when I questioned her she knew she was in [place], that she was initially admitted in September on [facility] but states she had COVID test before she was admitted and was negative and she believed she picked up the COVID here at the hospital. She talked about her being her second living in [place], [place] where she talked about having won a lottery $1 million but said this was when she was to her first and gave him part of it along with sharing some with her children all of which was accurate. Review of Systems: Ambulation impaired, with walker. No CV, , pulmonary, eye, ENT system symptoms on review. She has no complains of discomfort in her fractured upper extremity. Mental Status Exam: The patient is oriented to herself and situation. Speech is coherent, has some latency. Abstraction fair. Computation impaired. Language function intact. Attention span short. Mood and affect somewhat withdrawn, still depressed, anxious so she minimizes this, less paranoid. Laboratory Data: Reviewed. Impression: Major neurocognitive disorder, Alzheimer, vascular with delusion, depression, behavioral disturbance. Anxiety disorder unspecified. Impulse control disorder unspecified. Plan: I have carefully reviewed the patients current psychotropics Aricept 10 mg h.s., Seroquel 12.5 mg h.s., Xanax 0.25 mg h.s., Namenda 5 mg daily, Zoloft 75 mg a day, trazodone 25 mg h.s., may repeat x1 p.r.n. insomnia. Reviewed drug interactions, risk-benefit ratio favors no change at this time as we evaluate her baseline. Assessment: Vital Signs/I&O: Vital Signs Date Time Temp Pulse Resp B/P (MAP) Pulse Ox O2 Delivery O2 Flow Rate FiO2 11/07/21 05:38 97.2 59 18 107/68 (81) 96 Room Air 11/06/21 08:37 98.0 I & O 11/06/21 11/06/21 11/07/21 15:00 23:00 07:00 Intake Total 240 ml 200 ml 100 ml Balance 240 ml 200 ml 100 ml Current Medications: Meds: Current Medications Medications (Trade) Dose Ordered Sig/Mayito Route PRN Reason Start Time Stop Time Status Last Admin Dose Admin Alprazolam (Xanax) 0.25 mg QHS PO 11/04/21 21:00 11/06/21 21:36 Donepezil HCl (Aricept) 10 mg QHS PO 11/04/21 21:00 11/06/21 21:36 Memantine (Namenda) 5 mg DAILY PO 11/05/21 09:00 11/06/21 08:23 Quetiapine Fumarate (SEROquel) 12.5 mg HS PO 11/04/21 21:00 11/06/21 21:36 Sertraline HCl (Zoloft) 75 mg DAILY PO 11/05/21 09:00 11/06/21 08:25 Trazodone HCl (Desyrel) 25 mg PRN QHS PRN PO INSOMNIA, MAY REPEAT X1 11/04/21 17:30 11/06/21 21:36 Acetaminophen (Tylenol) 650 mg PRN Q6HRS PRN PO PAIN 11/04/21 18:15 11/06/21 21:36 Aspirin (Aspirin Enteric Coated) 81 mg DAILY PO 11/05/21 09:00 11/06/21 08:23 Cetirizine HCl (ZyrTEC) 10 mg DAILY PO 11/05/21 09:00 11/06/21 08:24 Lidocaine (Lidoderm) 1 patch DAILY TP 11/05/21 09:00 11/05/21 09:42 Lisinopril (Prinivil) 5 mg DAILY PO 11/05/21 09:00 11/06/21 08:24 Al Hydroxide/Mg Hydroxide (Mylanta Plus Xs) 30 ml PRN QID PRN PO DYSPEPSIA 11/04/21 18:15 Atorvastatin Calcium (Lipitor) 40 mg DAILY PO 11/05/21 09:00 11/06/21 08:24 Magnesium Hydroxide (Milk Of Magnesia) 2,400 mg PRN DAILY PRN PO CONSTIPATION 11/04/21 18:30 Multi-Ingredient Ointment (Analgesic [place]) 1 claudia PRN QID PRN TP MUSCLE PAIN 11/04/21 18:30 Multivitamins/ Calcium (Thera-M Plus) 1 tab DAILY PO 11/05/21 09:00 11/06/21 08:22 Miscellaneous (Lidoderm Patch Removal) 1 ea QHS MC 11/04/21 21:00 11/06/21 21:00 I have reviewed the current psychotropics carefully including drug interactions. Risk benefit ratio favors no change other than as noted in my dictated progress note. Diagnosis: Problems: (1) Mild cognitive impairment (2) Anxiety disorder, unspecified (3) COVID-19 (4) Major neurocognitive disorder (5) Dementia in Alzheimer's disease with delusions (6) Dementia in Alzheimer's disease with depression (7) Dementia, vascular, with delusions (8) Dementia, vascular, with depression NÉSTOR WONG MD Nov 07, 2021 08:17
[2021-11-07] MEDS: LIDOCAINE (700MG/PATCH) PATCH. TP SCH (09:00)
--- NOTE | 2021-11-07 09:10 | PN ---
DATE: 11/07/2021 ATTENDING PHYSICIAN: Dr. Donis Jc SUBJECTIVE: No other symptoms, sore throat is better. OBJECTIVE FINDINGS: VITAL SIGNS: Blood pressure this morning is 107/68 mmHg, temperature 97.2 degrees Fahrenheit, pulse 60 and regular, oxygen saturation 96% on room air. HEENT: Head is without trauma. Pupils are reactive. Sclerae nonicteric. Oropharynx is clear. NECK: Supple, no bruits. LUNGS: Good breath sounds. CARDIOVASCULAR: Regular heart tones. ABDOMEN: Soft. EXTREMITIES: Without edema. NEUROLOGIC: Pleasantly confused. SKIN: Warm and dry. ASSESSMENT: 1. An 81-year-old female with asymptomatic COVID exposure. She has been fully vaccinated. I suspect this is Omicron variants. She remains totally asymptomatic. 2. Underlying dementia with behavioral issues. 3. Essential hypertension. 4. Degenerative arthritis. PLAN: 1. COVID isolation. 2. Diet as tolerated. 3. Home meds and psychiatric meds were reviewed. Her blood pressure is adequate. She is not doing much. I have tried to simplify her meds. She is still getting Xanax, Aricept, Lidoderm patch. She is on a very low dose, Prinivil, which I do not think she needs. I will discontinue her daily lisinopril because her blood pressure is actually on the low side. Continue Seroquel, Zoloft and trazodone as ordered. AD DR: KIMMIE/timothy TID: [id number]
[2021-11-07] MEDS: ATORVASTATIN CALCIUM 20 MG TABLET PO SCH (09:11)
[2021-11-07] MEDS: MULTIVITAMIN with MINERAL TABLET. PO SCH (09:11)
[2021-11-07] MEDS: MEMANTINE 10 MG TABLET. PO SCH (09:11)
[2021-11-07] MEDS: ASPIRIN ENTERIC COATED 81 MG TABLET.DR. PO SCH (09:12)
[2021-11-07] MEDS: CETIRIZINE HCL 10 MG TABLET PO SCH (09:12)
[2021-11-07] MEDS: SERTRALINE 50 MG TABLET. PO SCH (09:14)
[2021-11-07 10:25] VITALS: BP 100/63
[2021-11-07 17:00] VITALS: BP 119/75
--- NOTE | 2021-11-07 18:35 | NUR ---
NURSE NOTE PT HAS BEEN CALM AND COOPERATIVE ALL OF DAY. PT TOLERATED BEING TRANSFERRED TO [facility] COVID UNIT WELL. THIS RN SPOKE ON PHONE WITH PTS DAUGHTER THIS AFTERNOON. PT DAUGHTER STATED THAT SHE IS CURIOUS ABOUT PLACEMENT AFTER DISCHARGE AND VIRTUAL ASSESSMENT FOR PLACEMENT DURING THE HOSPITAL STAY. THIS RN OFFERED TO SPEAK WITH DISTRICT RESOURCE OFFICER FOR PT DAUGHTER AND SHE DECLINED, STATING SHE WOULD WAIT FOR HER SISTER (POA) TO HANDLE IT. PATIENT DENIES ANY PAIN BUT HAS SLIGHT DISCOMFORT OF A SORE THROAT AND COUGH DUE TO IT. PT TOLERATED ASSESSMENTS, MEDICATIONS, AND DINNER WELL. ALL NEEDS MET AT THIS TIME.
[2021-11-07] MEDS: DONEPEZIL HCL 10 MG TABLET PO SCH (20:57)
[2021-11-07] MEDS: ALPRAZolam 0.25 MG TABLET PO SCH (20:57)
[2021-11-07] MEDS: PATCH REMOVAL. MC SCH (20:57)
[2021-11-07] MEDS: QUEtiapine 25 MG TABLET. PO SCH (20:57)
--- NOTE | 2021-11-07 21:02 | PDOC ---
Exam Note: Rip Note: Please also refer to the separate dictated note~for this date of service dictated separately.~Patient seen individually. Discussed the patient with Nursing staff reviewed the chart.~Reviewed interim history and current functioning. Reviewed vital signs,~Labs/ Radiology~and current medications noted below. Continue current treatment with the changes noted in the dictated addendum note Assessment: Vital Signs/I&O: Vital Signs Date Time Temp Pulse Resp B/P (MAP) Pulse Ox O2 Delivery O2 Flow Rate FiO2 11/07/21 17:00 98.3 73 18 119/75 (90) 96 Room Air 11/07/21 08:00 98.0 I & O 11/06/21 11/06/21 11/07/21 14:59 22:59 06:59 Intake Total 240 ml 200 ml 100 ml Balance 240 ml 200 ml 100 ml Current Medications: I have reviewed the current psychotropics carefully including drug interactions. Risk benefit ratio favors no change other than as noted in my dictated progress note. Diagnosis: Problems: (1) Major depressive disorder, recurrent episode (2) Mild cognitive impairment (3) Anxiety disorder, unspecified (4) COVID-19 (5) Dementia, vascular, with depression (6) Dementia, vascular, with delusions (7) Dementia in Alzheimer's disease with depression (8) Dementia in Alzheimer's disease with delusions (9) Major neurocognitive disorder NÉSTOR WONG MD Nov 07, 2021 21:02
[2021-11-07] MEDS: ACETAMINOPHEN 325 MG TABLET PO PRN (21:06)
[2021-11-07 21:20] VITALS: BP 111/55
--- NOTE | 2021-11-07 22:45 | NUR ---
Nursing Note The patient was located in her room for her assessment and medication pass. The patient was alert to name, date and location. The patient took her medication whole. The patient was drowsy during interactions but was pleasant. The patient is currently sleeping in her room.
[2021-11-08 05:56] VITALS: BP 158/85
--- NOTE | 2021-11-08 07:43 | PDOC ---
Exam Note: Rip Note: This note is a late entry for 11/07/2021 covers elements not covered in my initial note. Subjective: The patient was seen on telehealth rounds in the evening of 11/07/2021 with Sima HINKLE, reviewed the chart. Overall she is doing reasonably well. She keeps to her room, compliant with isolation measures conse quent to being Covid positive. Review of Systems: Ambulation impaired, with walker. No CV, , pulmonary, eye, ENT system symptoms on review. Mental Status Exam: The patient is oriented to herself and situation. Speech is coherent, has some latency. Abstraction fair. Computation impaired. Language function intact. Mood and affect improved. No suicidal or homicidal ideation. Laboratory Data: Reviewed. Impression: Major neurocognitive disorder, Alzheimer, vascular with delusion, depression, behavioral disturbance. Anxiety disorder unspecified. Impulse control disorder unspecified. Plan: Continue current psychotropics. Adjust further as clinically indicated. Assessment: Vital Signs/I&O: Vital Signs Date Time Temp Pulse Resp B/P (MAP) Pulse Ox O2 Delivery O2 Flow Rate FiO2 11/08/21 05:56 95.7 67 20 158/85 (109) 96 Room Air 11/07/21 21:43 98.0 I & O 11/07/21 11/07/21 11/08/21 15:00 23:00 07:00 Intake Total 480 ml 500 ml 0 ml Balance 480 ml 500 ml 0 ml Current Medications: Meds: Current Medications Medications (Trade) Dose Ordered Sig/Mayito Route PRN Reason Start Time Stop Time Status Last Admin Dose Admin Alprazolam (Xanax) 0.25 mg QHS PO 11/04/21 21:00 11/07/21 20:57 Donepezil HCl (Aricept) 10 mg QHS PO 11/04/21 21:00 11/07/21 20:57 Memantine (Namenda) 5 mg DAILY PO 11/05/21 09:00 11/07/21 09:11 Quetiapine Fumarate (SEROquel) 12.5 mg HS PO 11/04/21 21:00 11/07/21 20:57 Sertraline HCl (Zoloft) 75 mg DAILY PO 11/05/21 09:00 11/07/21 09:14 Trazodone HCl (Desyrel) 25 mg PRN QHS PRN PO INSOMNIA, MAY REPEAT X1 11/04/21 17:30 11/06/21 21:36 Acetaminophen (Tylenol) 650 mg PRN Q6HRS PRN PO PAIN 11/04/21 18:15 11/07/21 21:06 Aspirin (Aspirin Enteric Coated) 81 mg DAILY PO 11/05/21 09:00 11/07/21 09:12 Cetirizine HCl (ZyrTEC) 10 mg DAILY PO 11/05/21 09:00 11/07/21 09:12 Lidocaine (Lidoderm) 1 patch DAILY TP 11/05/21 09:00 11/05/21 09:42 Lisinopril (Prinivil) 5 mg DAILY PO 11/05/21 09:00 11/07/21 08:50 DC 11/06/21 08:24 Al Hydroxide/Mg Hydroxide (Mylanta Plus Xs) 30 ml PRN QID PRN PO DYSPEPSIA 11/04/21 18:15 Atorvastatin Calcium (Lipitor) 40 mg DAILY PO 11/05/21 09:00 11/07/21 09:11 Magnesium Hydroxide (Milk Of Magnesia) 2,400 mg PRN DAILY PRN PO CONSTIPATION 11/04/21 18:30 Multi-Ingredient Ointment (Analgesic [place]) 1 claudia PRN QID PRN TP MUSCLE PAIN 11/04/21 18:30 Multivitamins/ Calcium (Thera-M Plus) 1 tab DAILY PO 11/05/21 09:00 11/07/21 09:11 Miscellaneous (Lidoderm Patch Removal) 1 ea QHS MC 11/04/21 21:00 11/07/21 20:57 I have reviewed the current psychotropics carefully including drug interactions. Risk benefit ratio favors no change other than as noted in my dictated progress note. Diagnosis: Problems: (1) Mild cognitive impairment (2) Anxiety disorder, unspecified (3) COVID-19 (4) Dementia, vascular, with depression (5) Dementia, vascular, with delusions (6) Dementia in Alzheimer's disease with depression (7) Dementia in Alzheimer's disease with delusions (8) Major neurocognitive disorder (9) Major depressive disorder, recurrent episode NÉSTOR WONG MD Nov 08, 2021 07:43
[2021-11-08] MEDS: MEMANTINE 10 MG TABLET. PO SCH (08:28)
[2021-11-08] MEDS: SERTRALINE 50 MG TABLET. PO SCH (08:28)
[2021-11-08] MEDS: ATORVASTATIN CALCIUM 20 MG TABLET PO SCH (08:28)
[2021-11-08] MEDS: ASPIRIN ENTERIC COATED 81 MG TABLET.DR. PO SCH (08:29)
[2021-11-08] MEDS: MULTIVITAMIN with MINERAL TABLET. PO SCH (08:29)
[2021-11-08] MEDS: CETIRIZINE HCL 10 MG TABLET PO SCH (08:29)
[2021-11-08] MEDS: LIDOCAINE (700MG/PATCH) PATCH. TP SCH (08:29)
[2021-11-08 11:21] VITALS: BP 109/54
--- NOTE | 2021-11-08 11:30 | NUR ---
BRIANNA sent over records to [facility] per request of the family. BRIANNA spoke with Stephy Montague, jose, and noted that pt would be able to discharge towards the beginning of next week. Stephy will meet with their team and get back to BRIANNA on whether or not they will be willing to take pt.
[2021-11-08] MEDS: PHENOL ORAL SPRAY 177ML BOTTLE. PO PRN (12:59)
[2021-11-08 15:15] VITALS: BP 109/50
--- NOTE | 2021-11-08 16:39 | NUR ---
Nursing note: Patient cooperative with assessment. She is compliant with medications whole. She is A/O X4, calm, pleasant, & interactive. She reports discomfort in right shoulder, pain patch applied per order. IV removed, patient tolerated well. She is currently resting in bed with eyes closed, call light in reach. Will continue to monitor.
--- NOTE | 2021-11-08 20:02 | PN ---
DATE: 11/08/2021 ATTENDING PHYSICIAN: Donis Jc MD SUBJECTIVE: She is comfortable. She still has a tickle in her throat. OBJECTIVE FINDINGS: VITAL SIGNS: Blood pressure this morning is 158/85, pulse is 67 and regular. She is afebrile. Oxygen saturation 96% on room air. HEENT: Head is without trauma. Pupils are reactive. Sclerae nonicteric. Oropharynx is clear. NECK: Supple. No bruits. LUNGS: Good breath sounds. CARDIOVASCULAR: Regular heart tones. ABDOMEN: Soft. EXTREMITIES: Without edema. NEUROLOGIC: Focally intact. ASSESSMENT: 1. An 81-year-old female with asymptomatic COVID exposure. She has been fully vaccinated. I suspect this is Omicron variant. She remains totally asymptomatic. 2. Underlying dementia with behavioral issues. 3. Essential hypertension. 4. Degenerative arthritis. PLAN: 1. COVID isolation. 2. Diet as tolerated. 3. We shall quarantine her for the obligatory time before returning her to the [facility]. I stopped her Prinivil. She is feeling better. KATT DR: Benigno TID: [id number]
[2021-11-08] MEDS: ALPRAZolam 0.25 MG TABLET PO SCH (20:28)
[2021-11-08] MEDS: QUEtiapine 25 MG TABLET. PO SCH (20:29)
[2021-11-08] MEDS: ACETAMINOPHEN 325 MG TABLET PO PRN (20:29)
[2021-11-08] MEDS: DONEPEZIL HCL 10 MG TABLET PO SCH (20:29)
[2021-11-08] MEDS: PATCH REMOVAL. MC SCH (20:30)
[2021-11-08 21:06] VITALS: BP 112/49
--- NOTE | 2021-11-08 21:19 | PDOC ---
Exam Note: Rip Note: Please also refer to the separate dictated note~for this date of service dictated separately.~Patient seen individually. Discussed the patient with Nursing staff reviewed the chart.~Reviewed interim history and current functioning. Reviewed vital signs,~Labs/ Radiology~and current medications noted below. Continue current treatment with the changes noted in the dictated addendum note Assessment: Vital Signs/I&O: Vital Signs Date Time Temp Pulse Resp B/P (MAP) Pulse Ox O2 Delivery O2 Flow Rate FiO2 11/08/21 21:06 97.9 69 16 112/49 (70) 96 Room Air 11/08/21 08:29 98.0 I & O 11/07/21 11/07/21 11/08/21 15:00 23:00 07:00 Intake Total 480 ml 500 ml 0 ml Balance 480 ml 500 ml 0 ml Current Medications: Meds: Current Medications Medications (Trade) Dose Ordered Sig/Mayito Route PRN Reason Start Time Stop Time Status Last Admin Dose Admin Alprazolam (Xanax) 0.25 mg QHS PO 11/04/21 21:00 11/08/21 20:28 Donepezil HCl (Aricept) 10 mg QHS PO 11/04/21 21:00 11/08/21 20:29 Memantine (Namenda) 5 mg DAILY PO 11/05/21 09:00 11/08/21 08:28 Quetiapine Fumarate (SEROquel) 12.5 mg HS PO 11/04/21 21:00 11/08/21 20:29 Sertraline HCl (Zoloft) 75 mg DAILY PO 11/05/21 09:00 11/08/21 08:28 Trazodone HCl (Desyrel) 25 mg PRN QHS PRN PO INSOMNIA, MAY REPEAT X1 11/04/21 17:30 11/06/21 21:36 Acetaminophen (Tylenol) 650 mg PRN Q6HRS PRN PO PAIN 11/04/21 18:15 11/08/21 20:29 Aspirin (Aspirin Enteric Coated) 81 mg DAILY PO 11/05/21 09:00 11/08/21 08:29 Cetirizine HCl (ZyrTEC) 10 mg DAILY PO 11/05/21 09:00 11/08/21 08:29 Lidocaine (Lidoderm) 1 patch DAILY TP 11/05/21 09:00 11/08/21 08:29 Lisinopril (Prinivil) 5 mg DAILY PO 11/05/21 09:00 11/07/21 08:50 DC 11/06/21 08:24 Al Hydroxide/Mg Hydroxide (Mylanta Plus Xs) 30 ml PRN QID PRN PO DYSPEPSIA 11/04/21 18:15 Atorvastatin Calcium (Lipitor) 40 mg DAILY PO 11/05/21 09:00 11/08/21 08:28 Magnesium Hydroxide (Milk Of Magnesia) 2,400 mg PRN DAILY PRN PO CONSTIPATION 11/04/21 18:30 Multi-Ingredient Ointment (Analgesic [place]) 1 claudia PRN QID PRN TP MUSCLE PAIN 11/04/21 18:30 Multivitamins/ Calcium (Thera-M Plus) 1 tab DAILY PO 11/05/21 09:00 11/08/21 08:29 Miscellaneous (Lidoderm Patch Removal) 1 ea QHS MC 11/04/21 21:00 11/08/21 20:30 Throat Lozenges (Chloraseptic) 1 spray PRN Q2HR PRN PO SORE THROAT 11/08/21 11:00 11/08/21 12:59 Current Medications Medications (Trade) Dose Ordered Sig/Mayito Route PRN Reason Start Time Stop Time Status Last Admin Dose Admin Throat Lozenges (Chloraseptic) 1 spray PRN Q2HR PRN PO SORE THROAT 11/08/21 11:00 11/08/21 12:59 I have reviewed the current psychotropics carefully including drug interactions. Risk benefit ratio favors no change other than as noted in my dictated progress note. Diagnosis: Problems: (1) Mild cognitive impairment (2) Anxiety disorder, unspecified (3) COVID-19 (4) Dementia, vascular, with depression (5) Dementia, vascular, with delusions (6) Dementia in Alzheimer's disease with depression (7) Dementia in Alzheimer's disease with delusions (8) Major neurocognitive disorder (9) Major depressive disorder, recurrent episode NÉSTOR WONG MD Nov 08, 2021 21:19
[2021-11-08 21:21] VITALS: BP 112/49
--- NOTE | 2021-11-09 04:40 | NUR ---
Nursing Note The patient was located in her room for her assessment and medication pass. The patient was alert to name, date and location. The patient took her medication whole. The patient was pleasant during interactions. The patient is currently sleeping in her room. patient requested PRN Tylenol with HS medication. Tylenol was effective.
[2021-11-09 05:04] VITALS: BP 138/53
--- NOTE | 2021-11-09 06:52 | PDOC ---
Exam Note: Rip Note: This note is a late entry for 11/08/2021 covers elements not covered in my initial note. Subjective: The patient was seen on telehealth rounds in the evening of 11/08/2021 with Denae HINKLE, discussed and reviewed the chart. Overall she is fairly cooperative. I met with her in her room. Review of Systems: Ambulation impaired, with walker. No CV, , pulmonary, eye, ENT system symptoms on review. Mental Status Exam: The patient is reasonably oriented. Speech is coherent, has some latency. Abstraction fair. Computation impaired. Language function intact. Attention span short. Mood and affect somewhat withdrawn. No suicidal or homicidal ideation. Laboratory Data: Reviewed. Impression: Major neurocognitive disorder, Alzheimer, vascular with delusion, depression, behavioral disturbance. Anxiety disorder unspecified. Impulse control disorder unspecified. Plan: Continue current psychotropics. Reviewed drug interactions, risk-benefit ratio favors no change for now. Assessment: Vital Signs/I&O: Vital Signs Date Time Temp Pulse Resp B/P (MAP) Pulse Ox O2 Delivery O2 Flow Rate FiO2 11/09/21 05:04 97.9 70 20 138/53 (81) 97 11/08/21 22:20 Room Air 98.0 I & O 11/08/21 11/08/21 11/09/21 14:59 22:59 06:59 Intake Total 600 ml 480 ml 0 ml Balance 600 ml 480 ml 0 ml Current Medications: Meds: Current Medications Medications (Trade) Dose Ordered Sig/Mayito Route PRN Reason Start Time Stop Time Status Last Admin Dose Admin Alprazolam (Xanax) 0.25 mg QHS PO 11/04/21 21:00 11/08/21 20:28 Donepezil HCl (Aricept) 10 mg QHS PO 11/04/21 21:00 11/08/21 20:29 Memantine (Namenda) 5 mg DAILY PO 11/05/21 09:00 11/08/21 08:28 Quetiapine Fumarate (SEROquel) 12.5 mg HS PO 11/04/21 21:00 11/08/21 20:29 Sertraline HCl (Zoloft) 75 mg DAILY PO 11/05/21 09:00 11/08/21 08:28 Trazodone HCl (Desyrel) 25 mg PRN QHS PRN PO INSOMNIA, MAY REPEAT X1 11/04/21 17:30 11/06/21 21:36 Acetaminophen (Tylenol) 650 mg PRN Q6HRS PRN PO PAIN 11/04/21 18:15 11/08/21 20:29 Aspirin (Aspirin Enteric Coated) 81 mg DAILY PO 11/05/21 09:00 11/08/21 08:29 Cetirizine HCl (ZyrTEC) 10 mg DAILY PO 11/05/21 09:00 11/08/21 08:29 Lidocaine (Lidoderm) 1 patch DAILY TP 11/05/21 09:00 11/08/21 08:29 Lisinopril (Prinivil) 5 mg DAILY PO 11/05/21 09:00 11/07/21 08:50 DC 11/06/21 08:24 Al Hydroxide/Mg Hydroxide (Mylanta Plus Xs) 30 ml PRN QID PRN PO DYSPEPSIA 11/04/21 18:15 Atorvastatin Calcium (Lipitor) 40 mg DAILY PO 11/05/21 09:00 11/08/21 08:28 Magnesium Hydroxide (Milk Of Magnesia) 2,400 mg PRN DAILY PRN PO CONSTIPATION 11/04/21 18:30 Multi-Ingredient Ointment (Analgesic [place]) 1 claudia PRN QID PRN TP MUSCLE PAIN 11/04/21 18:30 Multivitamins/ Calcium (Thera-M Plus) 1 tab DAILY PO 11/05/21 09:00 11/08/21 08:29 Miscellaneous (Lidoderm Patch Removal) 1 ea QHS MC 11/04/21 21:00 11/08/21 20:30 Throat Lozenges (Chloraseptic) 1 spray PRN Q2HR PRN PO SORE THROAT 11/08/21 11:00 11/08/21 12:59 Current Medications Medications (Trade) Dose Ordered Sig/Mayito Route PRN Reason Start Time Stop Time Status Last Admin Dose Admin Throat Lozenges (Chloraseptic) 1 spray PRN Q2HR PRN PO SORE THROAT 11/08/21 11:00 11/08/21 12:59 I have reviewed the current psychotropics carefully including drug interactions. Risk benefit ratio favors no change other than as noted in my dictated progress note. Diagnosis: Problems: (1) Mild cognitive impairment (2) Anxiety disorder, unspecified (3) COVID-19 (4) Dementia, vascular, with depression (5) Dementia, vascular, with delusions (6) Dementia in Alzheimer's disease with depression (7) Dementia in Alzheimer's disease with delusions (8) Major neurocognitive disorder (9) Major depressive disorder, recurrent episode NÉSTOR WONG MD Nov 09, 2021 06:52
[2021-11-09] MEDS: LIDOCAINE (700MG/PATCH) PATCH. TP SCH (08:29)
[2021-11-09] MEDS: SERTRALINE 50 MG TABLET. PO SCH (08:30)
[2021-11-09] MEDS: ATORVASTATIN CALCIUM 20 MG TABLET PO SCH (08:30)
[2021-11-09] MEDS: ASPIRIN ENTERIC COATED 81 MG TABLET.DR. PO SCH (08:31)
[2021-11-09] MEDS: MULTIVITAMIN with MINERAL TABLET. PO SCH (08:31)
[2021-11-09] MEDS: CETIRIZINE HCL 10 MG TABLET PO SCH (08:31)
[2021-11-09] MEDS: MEMANTINE 10 MG TABLET. PO SCH (08:32)
[2021-11-09 12:51] VITALS: BP 105/50
--- NOTE | 2021-11-09 15:23 | NUR ---
Day Shift Nurse Note: Pt presents with pleasant mood/affect. Pt is medication compliant. Pt is cooperative and calm. Pt is able to make needs known to staff. Pt spends time in her bedroom watching tv and resting. Pts vitals are WNL. Pt slept 6 hours last night. Pt continues to have a good appetite. Will continue to monitor.
[2021-11-09] MEDS: DONEPEZIL HCL 10 MG TABLET PO SCH (20:03)
[2021-11-09] MEDS: ACETAMINOPHEN 325 MG TABLET PO PRN (20:03)
[2021-11-09] MEDS: QUEtiapine 25 MG TABLET. PO SCH (20:03)
[2021-11-09] MEDS: ALPRAZolam 0.25 MG TABLET PO SCH (20:03)
--- NOTE | 2021-11-09 20:49 | PDOC ---
Exam Note: Rip Note: Please also refer to the separate dictated note~for this date of service dictated separately.~Patient seen individually. Discussed the patient with Nursing staff reviewed the chart.~Reviewed interim history and current functioning. Reviewed vital signs,~Labs/ Radiology~and current medications noted below. Continue current treatment with the changes noted in the dictated addendum note Assessment: Vital Signs/I&O: Vital Signs Date Time Temp Pulse Resp B/P (MAP) Pulse Ox O2 Delivery O2 Flow Rate FiO2 11/09/21 18:36 97.8 11/09/21 12:51 60 18 105/50 (68) 99 Room Air 11/09/21 09:54 98.0 I & O 11/08/21 11/08/21 11/09/21 15:00 23:00 07:00 Intake Total 600 ml 480 ml 0 ml Balance 600 ml 480 ml 0 ml Current Medications: Meds: Current Medications Medications (Trade) Dose Ordered Sig/Mayito Route PRN Reason Start Time Stop Time Status Last Admin Dose Admin Alprazolam (Xanax) 0.25 mg QHS PO 11/04/21 21:00 11/09/21 20:03 Donepezil HCl (Aricept) 10 mg QHS PO 11/04/21 21:00 11/09/21 20:03 Memantine (Namenda) 5 mg DAILY PO 11/05/21 09:00 11/09/21 08:32 Quetiapine Fumarate (SEROquel) 12.5 mg HS PO 11/04/21 21:00 11/09/21 20:03 Sertraline HCl (Zoloft) 75 mg DAILY PO 11/05/21 09:00 11/09/21 08:30 Trazodone HCl (Desyrel) 25 mg PRN QHS PRN PO INSOMNIA, MAY REPEAT X1 11/04/21 17:30 11/06/21 21:36 Acetaminophen (Tylenol) 650 mg PRN Q6HRS PRN PO PAIN 11/04/21 18:15 11/09/21 20:03 Aspirin (Aspirin Enteric Coated) 81 mg DAILY PO 11/05/21 09:00 11/09/21 08:31 Cetirizine HCl (ZyrTEC) 10 mg DAILY PO 11/05/21 09:00 11/09/21 08:31 Lidocaine (Lidoderm) 1 patch DAILY TP 1/8/22 09:00 11/09/21 08:29 Lisinopril (Prinivil) 5 mg DAILY PO 11/05/21 09:00 11/07/21 08:50 DC 11/06/21 08:24 Al Hydroxide/Mg Hydroxide (Mylanta Plus Xs) 30 ml PRN QID PRN PO DYSPEPSIA 11/04/21 18:15 Atorvastatin Calcium (Lipitor) 40 mg DAILY PO 11/05/21 09:00 11/09/21 08:30 Magnesium Hydroxide (Milk Of Magnesia) 2,400 mg PRN DAILY PRN PO CONSTIPATION 11/04/21 18:30 Multi-Ingredient Ointment (Analgesic [place]) 1 claudia PRN QID PRN TP MUSCLE PAIN 11/04/21 18:30 Multivitamins/ Calcium (Thera-M Plus) 1 tab DAILY PO 11/05/21 09:00 11/09/21 08:31 Miscellaneous (Lidoderm Patch Removal) 1 ea QHS MC 11/04/21 21:00 11/08/21 20:30 Throat Lozenges (Chloraseptic) 1 spray PRN Q2HR PRN PO SORE THROAT 11/08/21 11:00 11/08/21 12:59 I have reviewed the current psychotropics carefully including drug interactions. Risk benefit ratio favors no change other than as noted in my dictated progress note. Diagnosis: Problems: (1) Mild cognitive impairment (2) Anxiety disorder, unspecified (3) COVID-19 (4) Dementia, vascular, with depression (5) Dementia, vascular, with delusions (6) Dementia in Alzheimer's disease with depression (7) Dementia in Alzheimer's disease with delusions (8) Major neurocognitive disorder (9) Major depressive disorder, recurrent episode NÉSTOR WONG MD Nov 09, 2021 20:49
[2021-11-09] MEDS: PATCH REMOVAL. MC SCH (21:00)
[2021-11-10 00:11] VITALS: BP 137/59
--- NOTE | 2021-11-10 04:58 | NUR ---
Nursing Note The patient was located in her room for her assessment and medication pass. The patient was calm and compliant and took medication whole. The patient is independent with cares but requests stand by assist when ambulating due to frequent falls in the past. The patient was alert to name, date and location. The patient is currently sleeping in her room.
[2021-11-10 06:11] VITALS: BP 117/53
[2021-11-10] MEDS: CETIRIZINE HCL 10 MG TABLET PO SCH (08:30)
[2021-11-10] MEDS: LIDOCAINE (700MG/PATCH) PATCH. TP SCH (08:30)
[2021-11-10] MEDS: MULTIVITAMIN with MINERAL TABLET. PO SCH (08:31)
[2021-11-10] MEDS: ASPIRIN ENTERIC COATED 81 MG TABLET.DR. PO SCH (08:31)
[2021-11-10] MEDS: MEMANTINE 10 MG TABLET. PO SCH (08:31)
[2021-11-10] MEDS: ATORVASTATIN CALCIUM 20 MG TABLET PO SCH (08:31)
[2021-11-10] MEDS: SERTRALINE 50 MG TABLET. PO SCH (08:31)
[2021-11-10 11:31] VITALS: BP 127/57
--- NOTE | 2021-11-10 11:48 | NUR ---
BRIANNA left a message for albert Mariee dtr to contact BRIANNA when possible.
--- NOTE | 2021-11-10 11:52 | NUR ---
BRIANNA contacted the [facility] and spoke to Stephy, who wanted to schedule a Zoom meeting for 1100 tomorrow. BRIANNA inquired about 1130 as BRIANNA has a revenue call every morning at 1100. Stephy confirmed the Zoom meeting at 1130 and noted discharge for pt will be for Sunday in the event they decide to accept.
--- NOTE | 2021-11-10 12:53 | NUR ---
Nursing note: Pt has been in her room all morning for isolation d/t COVID. She is pleasant, med compliant and cooperative. Pt has no concerns. She c/o pain in her right shoulder that is relieved with the lidocaine patch. Pt is currently sitting in her bed eating lunch. Will continue to monitor.
[2021-11-10 15:03] VITALS: BP 117/56
--- NOTE | 2021-11-10 15:40 | NUR ---
BRIANNA received call from Jaylene, pt dtr/DENNY, who wanted to follow up as she knows her sister sent over an email. BRIANNA went over the points in the email submitted and informed Jaylene, that if they are not getting information to please go ahead and call BRIANNA. Jaylene believe the miscommunication was more geared towards nursing and not from the SW perspective. Jaylene agreed that BRIANNA touched basis with her on a regular basis and had no complaints. BRIANNA noted that updates were sent to [facility] and BRIANNA has scheduled a Zoom meeting for tomorrow at 1130. BRIANNA will call Jaylene and let her know how that has worked out. Jaylene informed BRIANNA that it seems they essentially made up their minds and will put pt on their Memory Care Unit. BRIANNA questioned why not AL and they noted her initially admission re: SI statements and then read notes about her anxiety and a man in her room. BRIANNA noted that the incident noted actually did happen. It wasn't a delusion and doesn't understand why they would see that as a means to put pt on the Memory Care side. BRIANNA will question that tomorrow during the Zoom meeting.
[2021-11-10] MEDS: PATCH REMOVAL. MC SCH (21:00)
[2021-11-10] MEDS: DONEPEZIL HCL 10 MG TABLET PO SCH (21:04)
[2021-11-10] MEDS: QUEtiapine 25 MG TABLET. PO SCH (21:05)
[2021-11-10] MEDS: ALPRAZolam 0.25 MG TABLET PO SCH (21:05)
--- NOTE | 2021-11-10 21:27 | PDOC ---
Exam Note: Rip Note: Please also refer to the separate dictated note~for this date of service dictated separately.~Patient seen individually. Discussed the patient with Nursing staff reviewed the chart.~Reviewed interim history and current functioning. Reviewed vital signs,~Labs/ Radiology~and current medications noted below. Continue current treatment with the changes noted in the dictated addendum note Assessment: Vital Signs/I&O: Vital Signs Date Time Temp Pulse Resp B/P (MAP) Pulse Ox O2 Delivery O2 Flow Rate FiO2 11/10/21 15:03 97.9 77 18 117/56 (76) 94 Room Air 11/09/21 22:19 98.0 I & O 11/09/21 11/09/21 11/10/21 14:59 22:59 06:59 Intake Total 600 ml 360 ml 0 ml Balance 600 ml 360 ml 0 ml Current Medications: I have reviewed the current psychotropics carefully including drug interactions. Risk benefit ratio favors no change other than as noted in my dictated progress note. Diagnosis: Problems: (1) Mild cognitive impairment (2) Anxiety disorder, unspecified (3) Dementia, vascular, with depression (4) Dementia, vascular, with delusions (5) Dementia in Alzheimer's disease with depression (6) Dementia in Alzheimer's disease with delusions (7) Major neurocognitive disorder (8) Major depressive disorder, recurrent episode NÉSTOR WONG MD Nov 10, 2021 21:27
[2021-11-10 21:45] VITALS: BP 110/41
--- NOTE | 2021-11-11 02:39 | NUR ---
Nursing Note The patient was located in her room for her assessment and medication pass. The patient was alert to name, date and location. The patient took her medication whole. The patient was pleasant during interactions. The patient was more independent/confident this shift and was able to ambulate independently. The patient is currently sleeping in her room. .
[2021-11-11 06:36] VITALS: BP 119/53
--- NOTE | 2021-11-11 06:57 | PDOC ---
Exam Note: Rip Note: This note is a late entry for 11/09/2021 covers elements not covered in my initial note. Subjective: The patient was seen on telehealth rounds in the evening of 11/09/2021 with Natalia HINKLE, discussed and reviewed the chart. Reviewed interim history and current functioning. Overall she has been alert and oriented doing reasonably well on the unit. Review of Systems: She complains of some tiredness. No CV, , pulmonary, eye, ENT system symptoms on review. Reliability poor. Mental Status Exam: The patient is oriented to herself and situation. Speech is coherent, has some latency. Abstraction fair. Computation impaired. Language function intact. Attention span short. Mood and affect improved more animated during telehealth visit. No suicidal ideation. Laboratory Data: Reviewed. Impression: Major neurocognitive disorder, Alzheimer, vascular with delusion, depression, behavioral disturbance. Anxiety disorder unspecified. Impulse control disorder unspecified. Plan: Continue current psychotropics. Assessment: Vital Signs/I&O: Vital Signs Date Time Temp Pulse Resp B/P (MAP) Pulse Ox O2 Delivery O2 Flow Rate FiO2 11/11/21 06:36 97.1 68 18 119/53 (75) 93 11/11/21 00:22 Room Air 98.0 I & O 11/10/21 11/10/21 11/11/21 15:00 23:00 07:00 Intake Total 480 ml 440 ml 0 ml Balance 480 ml 440 ml 0 ml Current Medications: Meds: Current Medications Medications (Trade) Dose Ordered Sig/Mayito Route PRN Reason Start Time Stop Time Status Last Admin Dose Admin Alprazolam (Xanax) 0.25 mg QHS PO 11/04/21 21:00 11/10/21 21:05 Donepezil HCl (Aricept) 10 mg QHS PO 11/04/21 21:00 11/10/21 21:04 Memantine (Namenda) 5 mg DAILY PO 11/05/21 09:00 11/10/21 08:31 Quetiapine Fumarate (SEROquel) 12.5 mg HS PO 11/04/21 21:00 11/10/21 21:05 Sertraline HCl (Zoloft) 75 mg DAILY PO 11/05/21 09:00 11/10/21 08:31 Trazodone HCl (Desyrel) 25 mg PRN QHS PRN PO INSOMNIA, MAY REPEAT X1 11/04/21 17:30 11/06/21 21:36 Acetaminophen (Tylenol) 650 mg PRN Q6HRS PRN PO PAIN 11/04/21 18:15 11/09/21 20:03 Aspirin (Aspirin Enteric Coated) 81 mg DAILY PO 11/05/21 09:00 11/10/21 08:31 Cetirizine HCl (ZyrTEC) 10 mg DAILY PO 11/05/21 09:00 11/10/21 08:30 Lidocaine (Lidoderm) 1 patch DAILY TP 11/05/21 09:00 11/10/21 08:30 Lisinopril (Prinivil) 5 mg DAILY PO 11/05/21 09:00 11/07/21 08:50 DC 11/06/21 08:24 Al Hydroxide/Mg Hydroxide (Mylanta Plus Xs) 30 ml PRN QID PRN PO DYSPEPSIA 11/04/21 18:15 Atorvastatin Calcium (Lipitor) 40 mg DAILY PO 11/05/21 09:00 11/10/21 08:31 Magnesium Hydroxide (Milk Of Magnesia) 2,400 mg PRN DAILY PRN PO CONSTIPATION 11/04/21 18:30 Multi-Ingredient Ointment (Analgesic [place]) 1 claudia PRN QID PRN TP MUSCLE PAIN 11/04/21 18:30 Multivitamins/ Calcium (Thera-M Plus) 1 tab DAILY PO 11/05/21 09:00 11/10/21 08:31 Miscellaneous (Lidoderm Patch Removal) 1 ea QHS MC 11/04/21 21:00 11/10/21 21:00 Throat Lozenges (Chloraseptic) 1 spray PRN Q2HR PRN PO SORE THROAT 11/08/21 11:00 11/08/21 12:59 I have reviewed the current psychotropics carefully including drug interactions. Risk benefit ratio favors no change other than as noted in my dictated progress note. Diagnosis: Problems: (1) Mild cognitive impairment (2) Anxiety disorder, unspecified (3) COVID-19 (4) Dementia, vascular, with depression (5) Dementia, vascular, with delusions (6) Dementia in Alzheimer's disease with depression (7) Dementia in Alzheimer's disease with delusions (8) Major neurocognitive disorder (9) Major depressive disorder, recurrent episode MARVIN,MAN M MD Nov 11, 2021 06:57
[2021-11-11 07:08] LABS: BASO % 0 % (0-3); EOS # 0.2 x10^3/uL (0.0-0.7); EOS % 4 % (0-3); HEMATOCRIT 31.7 % (36.0-47.0); HEMOGLOBIN 10.4 g/dL (12.0-15.5); LYMPH # 1.3 x10^3/uL (1.0-4.8); LYMPH % 25 % (24-48); MEAN CORPUSCULAR HEMOGLOBIN 31 pg (25-35); MEAN CORPUSCULAR HGB CONC 33 g/dL (31-37); MEAN CORPUSCULAR VOLUME 93 fL (79-100); MONO # 0.7 x10^3/uL (0.0-1.1); MONO % 13 % (0-9); NEUT % 57 % (31-73); PLATELET COUNT 197 x10^3/uL (140-400); RED BLOOD COUNT 3.42 x10^6/uL (3.50-5.40); RED CELL DISTRIBUTION WIDTH 15.1 % (11.5-14.5); WHITE BLOOD COUNT 5.3 x10^3/uL (4.0-11.0)
[2021-11-11 07:20] LABS: ALBUMIN 2.8 g/dL (3.4-5.0); ALBUMIN/GLOBULIN RATIO 0.9 (1.0-1.7); CALCIUM 8.4 mg/dL (8.5-10.1); CREATININE 0.6 mg/dL (0.6-1.0); GFR 95.5; POTASSIUM 4.1 mmol/L (3.5-5.1); TOTAL BILIRUBIN 0.3 mg/dL (0.2-1.0); TOTAL PROTEIN 5.8 g/dL (6.4-8.2)
[2021-11-11] MEDS: CETIRIZINE HCL 10 MG TABLET PO SCH (08:13)
[2021-11-11] MEDS: ATORVASTATIN CALCIUM 20 MG TABLET PO SCH (08:13)
[2021-11-11] MEDS: SERTRALINE 50 MG TABLET. PO SCH (08:13)
[2021-11-11] MEDS: ASPIRIN ENTERIC COATED 81 MG TABLET.DR. PO SCH (08:13)
[2021-11-11] MEDS: MULTIVITAMIN with MINERAL TABLET. PO SCH (08:14)
[2021-11-11] MEDS: MEMANTINE 10 MG TABLET. PO SCH (08:14)
[2021-11-11] MEDS: LIDOCAINE (700MG/PATCH) PATCH. TP SCH (08:14)
[2021-11-11] MEDS: PHENOL ORAL SPRAY 177ML BOTTLE. PO PRN (09:00)
--- NOTE | 2021-11-11 10:01 | NUR ---
Nursing note: Pt is pleasant, med compliant and cooperative at time of AM med pass and assessment. She c/o pain in her right shoulder that is relieved with the lidocaine patch and reports that she has a sore throat from her cough. PRN provided for her at that time. Pt is currently sitting in bed having a phone conversation with her daughter. Will continue to monitor.
--- NOTE | 2021-11-11 12:00 | NUR ---
BRIANNA completed a Zoom assessment with SAMANTA Blanchard, at the [facility]. Pt was able to answer all questions re: ADL's, therapy, falls, etc as asked. SW did mention a few details re: pt fall and care needs as pt is mostly independent but does have the brace on her dominant hand, so having people SBA during showers and dressing may be appropriate. Pt had a cough and noted that her cough was mainly due her throat being bothered but otherwise she feels fine. Pt 10th day of quarantine is November 14; therefore, pt is able to discharge November 15. Pt was very adamant on making sure they knew she was self -sufficient. SW explained that pt is going to live here, despite pt request to "not live there for long". [place] [facility] [place] to [place] and SW noted that this [place] a [place] [facility] [place] and would live here instead. Lo asked for pt Covid vaccination card if SW had it and also wanted to make sure an order for PT and OT would be received. Lo or Stephy would be in contact with BRIANNA.
[2021-11-11 13:21] VITALS: BP 153/73
[2021-11-11 15:42] VITALS: BP 146/6
[2021-11-11] MEDS: PATCH REMOVAL. MC SCH (20:19)
[2021-11-11] MEDS: QUEtiapine 25 MG TABLET. PO SCH (20:20)
[2021-11-11] MEDS: ALPRAZolam 0.25 MG TABLET PO SCH (20:20)
[2021-11-11] MEDS: DONEPEZIL HCL 10 MG TABLET PO SCH (20:20)
--- NOTE | 2021-11-11 21:11 | PDOC ---
Exam Note: Rip Note: Please also refer to the separate dictated note~for this date of service dictated separately.~Patient seen individually. Discussed the patient with Nursing staff reviewed the chart.~Reviewed interim history and current functioning. Reviewed vital signs,~Labs/ Radiology~and current medications noted below. Continue current treatment with the changes noted in the dictated addendum note Assessment: Vital Signs/I&O: Vital Signs Date Time Temp Pulse Resp B/P (MAP) Pulse Ox O2 Delivery O2 Flow Rate FiO2 11/11/21 20:48 Room Air 11/11/21 15:42 97.1 79 20 146/6 (52) 97 11/11/21 00:22 98.0 I & O 0 11/10/21 11/10/21 11/11/21 15:00 23:00 07:00 Intake Total 480 ml 440 ml 0 ml Balance 480 ml 440 ml 0 ml Labs: Laboratory Tests Test 11/11/21 06:30 White Blood Count 5.3 x10^3/uL (4.0-11.0) Red Blood Count 3.42 x10^6/uL (3.50-5.40) L Hemoglobin 10.4 g/dL (12.0-15.5) L Hematocrit 31.7 % (36.0-47.0) L Mean Corpuscular Volume 93 fL (79-100) Mean Corpuscular Hemoglobin 31 pg (25-35) Mean Corpuscular Hemoglobin Concent 33 g/dL (31-37) Red Cell Distribution Width 15.1 % (11.5-14.5) H Platelet Count 197 x10^3/uL (140-400) Neutrophils (%) (Auto) 57 % (31-73) Lymphocytes (%) (Auto) 25 % (24-48) Monocytes (%) (Auto) 13 % (0-9) H Eosinophils (%) (Auto) 4 % (0-3) H Basophils (%) (Auto) 0 % (0-3) Neutrophils # (Auto) 3.0 x10^3uL (1.8-7.7) Lymphocytes # (Auto) 1.3 x10^3/uL (1.0-4.8) Monocytes # (Auto) 0.7 x10^3/uL (0.0-1.1) Eosinophils # (Auto) 0.2 x10^3/uL (0.0-0.7) Basophils # (Auto) 0.0 x10^3/uL (0.0-0.2) Sodium Level 140 mmol/L (136-145) Potassium Level 4.1 mmol/L (3.5-5.1) Chloride Level 106 mmol/L (98-107) Carbon Dioxide Level 26 mmol/L (21-32) Anion Gap 8 (6-14) Blood Urea Nitrogen 14 mg/dL (7-20) Creatinine 0.6 mg/dL (0.6-1.0) Estimated GFR (Cockcroft-Gault) 95.5 BUN/Creatinine Ratio 23 (6-20) H Glucose Level 91 mg/dL (70-99) Calcium Level 8.4 mg/dL (8.5-10.1) L Total Bilirubin 0.3 mg/dL (0.2-1.0) Aspartate Amino Transferase (AST) 19 U/L (15-37) Alanine Aminotransferase (ALT) 24 U/L (14-59) Alkaline Phosphatase 72 U/L (46-116) Total Protein 5.8 g/dL (6.4-8.2) L Albumin 2.8 g/dL (3.4-5.0) L Albumin/Globulin Ratio 0.9 (1.0-1.7) L Current Medications: Meds: Laboratory Tests Test 11/11/21 06:30 White Blood Count 5.3 x10^3/uL Red Blood Count 3.42 x10^6/uL Hemoglobin 10.4 g/dL Hematocrit 31.7 % Mean Corpuscular Volume 93 fL Mean Corpuscular Hemoglobin 31 pg Mean Corpuscular Hemoglobin Concent 33 g/dL Red Cell Distribution Width 15.1 % Platelet Count 197 x10^3/uL Neutrophils (%) (Auto) 57 % Lymphocytes (%) (Auto) 25 % Monocytes (%) (Auto) 13 % Eosinophils (%) (Auto) 4 % Basophils (%) (Auto) 0 % Neutrophils # (Auto) 3.0 x10^3uL Lymphocytes # (Auto) 1.3 x10^3/uL Monocytes # (Auto) 0.7 x10^3/uL Eosinophils # (Auto) 0.2 x10^3/uL Basophils # (Auto) 0.0 x10^3/uL Sodium Level 140 mmol/L Potassium Level 4.1 mmol/L Chloride Level 106 mmol/L Carbon Dioxide Level 26 mmol/L Anion Gap 8 Blood Urea Nitrogen 14 mg/dL Creatinine 0.6 mg/dL Estimated GFR (Cockcroft-Gault) 95.5 BUN/Creatinine Ratio 23 Glucose Level 91 mg/dL Calcium Level 8.4 mg/dL Total Bilirubin 0.3 mg/dL Aspartate Amino Transf (AST/SGOT) 19 U/L Alanine Aminotransferase (ALT/SGPT) 24 U/L Alkaline Phosphatase 72 U/L Total Protein 5.8 g/dL Albumin 2.8 g/dL Albumin/Globulin Ratio 0.9 Current Medications Medications (Trade) Dose Ordered Sig/Mayito Route PRN Reason Start Time Stop Time Status Last Admin Dose Admin Alprazolam (Xanax) 0.25 mg QHS PO 11/04/21 21:00 11/11/21 20:20 Donepezil HCl (Aricept) 10 mg QHS PO 11/04/21 21:00 11/11/21 20:20 Memantine (Namenda) 5 mg DAILY PO 11/05/21 09:00 11/11/21 08:14 Quetiapine Fumarate (SEROquel) 12.5 mg HS PO 11/04/21 21:00 11/11/21 20:20 Sertraline HCl (Zoloft) 75 mg DAILY PO 11/05/21 09:00 11/11/21 08:13 Trazodone HCl (Desyrel) 25 mg PRN QHS PRN PO INSOMNIA, MAY REPEAT X1 11/04/21 17:30 11/06/21 21:36 Acetaminophen (Tylenol) 650 mg PRN Q6HRS PRN PO PAIN 11/04/21 18:15 11/09/21 20:03 Aspirin (Aspirin Enteric Coated) 81 mg DAILY PO 11/05/21 09:00 11/11/21 08:13 Cetirizine HCl (ZyrTEC) 10 mg DAILY PO 11/05/21 09:00 11/11/21 08:13 Lidocaine (Lidoderm) 1 patch DAILY TP 11/05/21 09:00 11/11/21 08:14 Lisinopril (Prinivil) 5 mg DAILY PO 11/05/21 09:00 11/07/21 08:50 DC 11/06/21 08:24 Al Hydroxide/Mg Hydroxide (Mylanta Plus Xs) 30 ml PRN QID PRN PO DYSPEPSIA 11/04/21 18:15 Atorvastatin Calcium (Lipitor) 40 mg DAILY PO 11/05/21 09:00 11/11/21 08:13 Magnesium Hydroxide (Milk Of Magnesia) 2,400 mg PRN DAILY PRN PO CONSTIPATION 11/04/21 18:30 Multi-Ingredient Ointment (Analgesic [place]) 1 claudia PRN QID PRN TP MUSCLE PAIN 11/04/21 18:30 Multivitamins/ Calcium (Thera-M Plus) 1 tab DAILY PO 11/05/21 09:00 11/11/21 08:14 Miscellaneous (Lidoderm Patch Removal) 1 ea QHS MC 11/04/21 21:00 11/11/21 20:19 Throat Lozenges (Chloraseptic) 1 spray PRN Q2HR PRN PO SORE THROAT 11/08/21 11:00 11/11/21 09:00 I have reviewed the current psychotropics carefully including drug interactions. Risk benefit ratio favors no change other than as noted in my dictated progress note. Diagnosis: Problems: (1) Mild cognitive impairment (2) Anxiety disorder, unspecified (3) COVID-19 (4) Dementia, vascular, with depression (5) Dementia, vascular, with delusions (6) Dementia in Alzheimer's disease with depression (7) Dementia in Alzheimer's disease with delusions (8) Major neurocognitive disorder (9) Major depressive disorder, recurrent episode NÉSTOR WONG MD Nov 11, 2021 21:11
--- NOTE | 2021-11-11 23:15 | NUR ---
Patient is located in her room on assumption of care, awake in her bed. She is alert and oriented x4. Denies any thoughts of SI or self harm. She was compliant with assessments and took her medications whole. No complaints of pain or discomfort. Patient appears to be sleeping comfortably at present time. Will continue to monitor.
[2021-11-12 06:28] VITALS: BP 139/53
--- NOTE | 2021-11-12 07:17 | PDOC ---
Exam Note: Rip Note: This note is a late entry for 11/10/2021 covers elements not covered in my initial note. Subjective: The patient was seen on telehealth rounds in the evening of 11/10/2021 with Melly HINKLE, discussed and reviewed the chart. Reviewed interim history and current functioning. She denies any pain or discomfort though she still has brace on her lower arm. Review of Systems: No CV, , pulmonary, eye, ENT system symptoms on review. Mental Status Exam: The patient is reasonably oriented. She is quite cooperative, animated, somewhat anxious. Abstraction fair. Computation impaired. Language function intact. Mood and affect improved. Laboratory Data: Reviewed. Impression: Major neurocognitive disorder, Alzheimer, vascular with delusion, depression, behavioral disturbance. Anxiety disorder unspecified. Impulse control disorder unspecified. Plan: Continue current psychotropics. Assessment: Vital Signs/I&O: Vital Signs Date Time Temp Pulse Resp B/P (MAP) Pulse Ox O2 Delivery O2 Flow Rate FiO2 11/12/21 06:28 96.8 70 14 139/53 (81) 98 11/11/21 20:48 Room Air 11/11/21 00:22 98.0 I & O 11/11/21 11/11/21 11/12/21 15:00 23:00 07:00 Intake Total 600 ml 347 ml Balance 600 ml 347 ml Current Medications: Meds: Current Medications Medications (Trade) Dose Ordered Sig/Mayito Route PRN Reason Start Time Stop Time Status Last Admin Dose Admin Alprazolam (Xanax) 0.25 mg QHS PO 11/04/21 21:00 11/11/21 20:20 Donepezil HCl (Aricept) 10 mg QHS PO 11/04/21 21:00 11/11/21 20:20 Memantine (Namenda) 5 mg DAILY PO 11/05/21 09:00 11/11/21 08:14 Quetiapine Fumarate (SEROquel) 12.5 mg HS PO 11/04/21 21:00 11/11/21 20:20 Sertraline HCl (Zoloft) 75 mg DAILY PO 11/05/21 09:00 11/11/21 08:13 Trazodone HCl (Desyrel) 25 mg PRN QHS PRN PO INSOMNIA, MAY REPEAT X1 11/04/21 17:30 11/06/21 21:36 Acetaminophen (Tylenol) 650 mg PRN Q6HRS PRN PO PAIN 11/04/21 18:15 11/09/21 20:03 Aspirin (Aspirin Enteric Coated) 81 mg DAILY PO 11/05/21 09:00 11/11/21 08:13 Cetirizine HCl (ZyrTEC) 10 mg DAILY PO 11/05/21 09:00 11/11/21 08:13 Lidocaine (Lidoderm) 1 patch DAILY TP 11/05/21 09:00 11/11/21 08:14 Lisinopril (Prinivil) 5 mg DAILY PO 11/05/21 09:00 11/07/21 08:50 DC 11/06/21 08:24 Al Hydroxide/Mg Hydroxide (Mylanta Plus Xs) 30 ml PRN QID PRN PO DYSPEPSIA 11/04/21 18:15 Atorvastatin Calcium (Lipitor) 40 mg DAILY PO 11/05/21 09:00 11/11/21 08:13 Magnesium Hydroxide (Milk Of Magnesia) 2,400 mg PRN DAILY PRN PO CONSTIPATION 11/04/21 18:30 Multi-Ingredient Ointment (Analgesic [place]) 1 claudia PRN QID PRN TP MUSCLE PAIN 11/04/21 18:30 Multivitamins/ Calcium (Thera-M Plus) 1 tab DAILY PO 11/05/21 09:00 11/11/21 08:14 Miscellaneous (Lidoderm Patch Removal) 1 ea QHS MC 11/04/21 21:00 11/11/21 20:19 Throat Lozenges (Chloraseptic) 1 spray PRN Q2HR PRN PO SORE THROAT 11/08/21 11:00 11/11/21 09:00 I have reviewed the current psychotropics carefully including drug interactions. Risk benefit ratio favors no change other than as noted in my dictated progress note. Diagnosis: Problems: (1) Mild cognitive impairment (2) Anxiety disorder, unspecified (3) COVID-19 (4) Dementia, vascular, with depression (5) Dementia, vascular, with delusions (6) Dementia in Alzheimer's disease with depression (7) Dementia in Alzheimer's disease with delusions (8) Major neurocognitive disorder (9) Major depressive disorder, recurrent episode NÉSTOR WONG MD Nov 12, 2021 07:17
[2021-11-12] MEDS: MEMANTINE 10 MG TABLET. PO SCH (07:26)
[2021-11-12] MEDS: ATORVASTATIN CALCIUM 20 MG TABLET PO SCH (07:26)
[2021-11-12] MEDS: SERTRALINE 50 MG TABLET. PO SCH (07:26)
[2021-11-12] MEDS: ASPIRIN ENTERIC COATED 81 MG TABLET.DR. PO SCH (07:26)
[2021-11-12] MEDS: CETIRIZINE HCL 10 MG TABLET PO SCH (07:26)
[2021-11-12] MEDS: MULTIVITAMIN with MINERAL TABLET. PO SCH (07:27)
[2021-11-12] MEDS: LIDOCAINE (700MG/PATCH) PATCH. TP SCH (07:27)
--- NOTE | 2021-11-12 07:57 | PDOC ---
Exam Note: Rip Note: This note is a late entry for 11/11/2021 covers elements not covered in my initial note. Subjective: The patient was reviewed on 11/11/2021 with Melly HINKLE, discussed and reviewed the chart. Reviewed interim history and current functioning. Review of Systems: No CV, , pulmonary, eye, ENT system symptoms on review. Reliability poor. Mental Status Exam: The patient is reasonably oriented. She remains quite animated, cooperative. She does have some short-term memory deficits, but minimizes this. Abstraction fair. Computation impaired. Language function intact. Mood and affect improved. Laboratory Data: Reviewed. Impression: Major neurocognitive disorder, Alzheimer, vascular with delusion, depression, behavioral disturbance. Anxiety disorder unspecified. Impulse control disorder unspecified. Plan: Continue current psychotropics. Assessment: Vital Signs/I&O: Vital Signs Date Time Temp Pulse Resp B/P (MAP) Pulse Ox O2 Delivery O2 Flow Rate FiO2 11/12/21 06:28 96.8 70 14 139/53 (81) 98 11/11/21 20:48 Room Air 11/11/21 00:22 98.0 I & O 11/11/21 11/11/21 11/12/21 15:00 23:00 07:00 Intake Total 600 ml 347 ml Balance 600 ml 347 ml Current Medications: Meds: Current Medications Medications (Trade) Dose Ordered Sig/Mayito Route PRN Reason Start Time Stop Time Status Last Admin Dose Admin Alprazolam (Xanax) 0.25 mg QHS PO 11/04/21 21:00 11/11/21 20:20 Donepezil HCl (Aricept) 10 mg QHS PO 11/04/21 21:00 11/11/21 20:20 Memantine (Namenda) 5 mg DAILY PO 11/05/21 09:00 11/12/21 07:26 Quetiapine Fumarate (SEROquel) 12.5 mg HS PO 11/04/21 21:00 11/11/21 20:20 Sertraline HCl (Zoloft) 75 mg DAILY PO 11/05/21 09:00 11/12/21 07:26 Trazodone HCl (Desyrel) 25 mg PRN QHS PRN PO INSOMNIA, MAY REPEAT X1 11/04/21 17:30 11/06/21 21:36 Acetaminophen (Tylenol) 650 mg PRN Q6HRS PRN PO PAIN 11/04/21 18:15 11/09/21 20:03 Aspirin (Aspirin Enteric Coated) 81 mg DAILY PO 11/05/21 09:00 11/12/21 07:26 Cetirizine HCl (ZyrTEC) 10 mg DAILY PO 11/05/21 09:00 11/12/21 07:26 Lidocaine (Lidoderm) 1 patch DAILY TP 11/05/21 09:00 11/12/21 07:27 Lisinopril (Prinivil) 5 mg DAILY PO 11/05/21 09:00 11/07/21 08:50 DC 11/06/21 08:24 Al Hydroxide/Mg Hydroxide (Mylanta Plus Xs) 30 ml PRN QID PRN PO DYSPEPSIA 11/04/21 18:15 Atorvastatin Calcium (Lipitor) 40 mg DAILY PO 11/05/21 09:00 11/12/21 07:26 Magnesium Hydroxide (Milk Of Magnesia) 2,400 mg PRN DAILY PRN PO CONSTIPATION 11/04/21 18:30 Multi-Ingredient Ointment (Analgesic [place]) 1 claudia PRN QID PRN TP MUSCLE PAIN 11/04/21 18:30 Multivitamins/ Calcium (Thera-M Plus) 1 tab DAILY PO 11/05/21 09:00 11/12/21 07:27 Miscellaneous (Lidoderm Patch Removal) 1 ea QHS MC 11/04/21 21:00 11/11/21 20:19 Throat Lozenges (Chloraseptic) 1 spray PRN Q2HR PRN PO SORE THROAT 11/08/21 11:00 11/11/21 09:00 I have reviewed the current psychotropics carefully including drug interactions. Risk benefit ratio favors no change other than as noted in my dictated progress note. Diagnosis: Problems: (1) Mild cognitive impairment (2) Anxiety disorder, unspecified (3) COVID-19 (4) Dementia, vascular, with depression (5) Dementia, vascular, with delusions (6) Dementia in Alzheimer's disease with depression (7) Dementia in Alzheimer's disease with delusions (8) Major neurocognitive disorder (9) Major depressive disorder, recurrent episode NÉSTOR WONG MD Nov 12, 2021 07:57
[2021-11-12 11:00] VITALS: BP 123/67
[2021-11-12 17:14] VITALS: BP 147/59
--- NOTE | 2021-11-12 17:52 | NUR ---
Pt up adl in room. In pleasant spirits. Voices no c/o. Compliant with meds and cares.
[2021-11-12] MEDS: ALPRAZolam 0.25 MG TABLET PO SCH (19:57)
[2021-11-12] MEDS: QUEtiapine 25 MG TABLET. PO SCH (19:57)
[2021-11-12] MEDS: DONEPEZIL HCL 10 MG TABLET PO SCH (19:57)
[2021-11-12] MEDS: PATCH REMOVAL. MC SCH (19:58)
--- NOTE | 2021-11-12 20:14 | PN ---
DATE: 11/12/2021 SUBJECTIVE: The patient is an 81-year-old female patient who was transferred from [facility]. She has tested positive for coronavirus; however, she continues to be asymptomatic, in particular, denied any chest pain, shortness of breath, cough, phlegm, or hemoptysis. Denied any headache, nausea, vomiting, or diarrhea. PHYSICAL EXAMINATION: GENERAL: When I examined her, she looked well and was clearly in no apparent respiratory distress, pale, but not jaundiced or cyanosed. No lymphadenopathy. No thyromegaly. No jugular venous distention. No lower limb edema. VITAL SIGNS: Her heart rate was 77, blood pressure was 123/67, temperature was 97.1, respiratory rate was 16, and oxygen saturation was 94%. HEAD, EYES, EARS, NOSE AND THROAT: Normocephalic, atraumatic. NECK: Supple. HEART: Showed normal first and second heart sounds. No gallop, rub, or murmur. CHEST: Clear to auscultation. No crepitation or rhonchi. ABDOMEN: Distended, soft, nontender. NEUROLOGIC: She is demented, but without any obvious lateralizing sign. Her intake and output are incompletely recorded. LABORATORY DATA: Her lab work as of yesterday showed a white cell count of 5300, hemoglobin 10, hematocrit 31, MCV 92, and platelet count of 197,000. Her chemistry showed a serum sodium 140, potassium 4.1, chloride 106, bicarbonate 26, anion gap of 8, BUN 14, creatinine 0.6. Estimated GFR was 95 mL per minute. Her glucose was 91, calcium was 8.4. Total bilirubin, AST, ALT, alkaline phosphatase were normal. Total protein 5.8, albumin was 2.8. ASSESSMENT: 1. Asymptomatic COVID-19 infection. The patient has been fully vaccinated and she continues to be asymptomatic. 2. Underlying dementia with behavioral disorder. 3. Essential hypertension. 4. Degenerative osteoarthritis. PLAN: To continue with all her psychotropic medications. The patient once has completed her quarantine will be transferred either back to [facility] or to the original snf facility that she came from. TORI DR: Akilah TID: [id number]
--- NOTE | 2021-11-12 21:24 | PDOC ---
Exam Note: Rip Note: Please also refer to the separate dictated note~for this date of service dictated separately.~Patient seen individually. Discussed the patient with Nursing staff reviewed the chart.~Reviewed interim history and current functioning. Reviewed vital signs,~Labs/ Radiology~and current medications noted below. Continue current treatment with the changes noted in the dictated addendum note Assessment: Vital Signs/I&O: Vital Signs Date Time Temp Pulse Resp B/P (MAP) Pulse Ox O2 Delivery O2 Flow Rate FiO2 11/12/21 17:14 97.1 64 16 147/59 (88) 97 Room Air 11/11/21 00:22 98.0 I & O 11/11/21 11/11/21 11/12/21 15:00 23:00 07:00 Intake Total 600 ml 347 ml Balance 600 ml 347 ml Current Medications: Meds: Current Medications Medications (Trade) Dose Ordered Sig/Mayito Route PRN Reason Start Time Stop Time Status Last Admin Dose Admin Alprazolam (Xanax) 0.25 mg QHS PO 11/04/21 21:00 11/12/21 19:57 Donepezil HCl (Aricept) 10 mg QHS PO 11/04/21 21:00 11/12/21 19:57 Memantine (Namenda) 5 mg DAILY PO 11/05/21 09:00 11/12/21 07:26 Quetiapine Fumarate (SEROquel) 12.5 mg HS PO 11/04/21 21:00 11/12/21 19:57 Sertraline HCl (Zoloft) 75 mg DAILY PO 11/05/21 09:00 11/12/21 07:26 Trazodone HCl (Desyrel) 25 mg PRN QHS PRN PO INSOMNIA, MAY REPEAT X1 11/04/21 17:30 11/06/21 21:36 Acetaminophen (Tylenol) 650 mg PRN Q6HRS PRN PO PAIN 11/04/21 18:15 11/09/21 20:03 Aspirin (Aspirin Enteric Coated) 81 mg DAILY PO 11/05/21 09:00 11/12/21 07:26 Cetirizine HCl (ZyrTEC) 10 mg DAILY PO 11/05/21 09:00 11/12/21 07:26 Lidocaine (Lidoderm) 1 patch DAILY TP 11/05/21 09:00 11/12/21 07:27 Lisinopril (Prinivil) 5 mg DAILY PO 11/05/21 09:00 11/07/21 08:50 DC 11/06/21 08:24 Al Hydroxide/Mg Hydroxide (Mylanta Plus Xs) 30 ml PRN QID PRN PO DYSPEPSIA 11/04/21 18:15 Atorvastatin Calcium (Lipitor) 40 mg DAILY PO 11/05/21 09:00 11/12/21 07:26 Magnesium Hydroxide (Milk Of Magnesia) 2,400 mg PRN DAILY PRN PO CONSTIPATION 11/04/21 18:30 Multi-Ingredient Ointment (Analgesic [place]) 1 claudia PRN QID PRN TP MUSCLE PAIN 11/04/21 18:30 Multivitamins/ Calcium (Thera-M Plus) 1 tab DAILY PO 11/05/21 09:00 11/12/21 07:27 Miscellaneous (Lidoderm Patch Removal) 1 ea QHS MC 11/04/21 21:00 11/12/21 19:58 Throat Lozenges (Chloraseptic) 1 spray PRN Q2HR PRN PO SORE THROAT 11/08/21 11:00 11/11/21 09:00 I have reviewed the current psychotropics carefully including drug interactions. Risk benefit ratio favors no change other than as noted in my dictated progress note. Diagnosis: Problems: (1) Mild cognitive impairment (2) Anxiety disorder, unspecified (3) COVID-19 (4) Dementia, vascular, with depression (5) Dementia, vascular, with delusions (6) Dementia in Alzheimer's disease with depression (7) Dementia in Alzheimer's disease with delusions (8) Major neurocognitive disorder (9) Major depressive disorder, recurrent episode NÉSTOR WONG MD Nov 12, 2021 21:24
--- NOTE | 2021-11-12 23:29 | NUR ---
Pt has been sitting in her bed calmly all evening watching TV. Pleasant and cooperative. Compliant with whole medications. Pt currently sleeping.
[2021-11-13 05:21] VITALS: BP 128/56
[2021-11-13] MEDS: LIDOCAINE (700MG/PATCH) PATCH. TP SCH (09:00)
[2021-11-13] MEDS: MULTIVITAMIN with MINERAL TABLET. PO SCH ×2 (09:00→12:32)
--- NOTE | 2021-11-13 10:33 | NUR ---
Pt in bed sleeping. No signs of pain or distress, breathing even equal and unlabored. Shift assessment and medication administration pending. Will continue to monitor.
[2021-11-13] MEDS: ASPIRIN ENTERIC COATED 81 MG TABLET.DR. PO SCH (12:32)
[2021-11-13] MEDS: SERTRALINE 50 MG TABLET. PO SCH (12:32)
[2021-11-13] MEDS: CETIRIZINE HCL 10 MG TABLET PO SCH (12:32)
[2021-11-13] MEDS: MEMANTINE 10 MG TABLET. PO SCH (12:32)
--- NOTE | 2021-11-13 12:58 | NUR ---
Pt confused and forgetful this afternoon. She woke right before lunch and while eating this nurse commented that I was holding her medications and waiting for her to wake up. Pt replied, "I've been awake all morning and watching tv." This is not accurate as she slept past breakfast until lunch time. She is compliant with medications, appropriate in her interactions with staff. She is absent of disruptive behaviors thus far. Absent of SI/HI/VH/AH/delusions/pain. Plan of care continues, will pass to next shift.
[2021-11-13 15:51] VITALS: BP_SYST 126; BP_SYST 135; BP_DIAS 60; BP_DIAS 64
[2021-11-13] MEDS: QUEtiapine 25 MG TABLET. PO SCH (19:35)
[2021-11-13] MEDS: ATORVASTATIN CALCIUM 20 MG TABLET PO SCH (19:35)
[2021-11-13] MEDS: DONEPEZIL HCL 10 MG TABLET PO SCH (19:36)
[2021-11-13] MEDS: PATCH REMOVAL. MC SCH (19:36)
[2021-11-13] MEDS: ALPRAZolam 0.25 MG TABLET PO SCH (20:03)
[2021-11-13] MEDS: ACETAMINOPHEN 325 MG TABLET PO PRN (20:03)
--- NOTE | 2021-11-13 21:33 | PDOC ---
Exam Note: Rip Note: Please also refer to the separate dictated note~for this date of service dictated separately.~Patient seen individually. Discussed the patient with Nursing staff reviewed the chart.~Reviewed interim history and current functioning. Reviewed vital signs,~Labs/ Radiology~and current medications noted below. Continue current treatment with the changes noted in the dictated addendum note Assessment: Vital Signs/I&O: Vital Signs Date Time Temp Pulse Resp B/P (MAP) Pulse Ox O2 Delivery O2 Flow Rate FiO2 11/13/21 18:56 Room Air 11/13/21 15:51 97.1 81 18 135/60 (85) 95 11/11/21 00:22 98.0 I & O 11/12/21 11/12/21 11/13/21 15:00 23:00 07:00 Intake Total 480 ml 240 ml Balance 480 ml 240 ml Current Medications: Meds: Current Medications Medications (Trade) Dose Ordered Sig/Mayito Route PRN Reason Start Time Stop Time Status Last Admin Dose Admin Alprazolam (Xanax) 0.25 mg QHS PO 11/04/21 21:00 11/13/21 20:03 Donepezil HCl (Aricept) 10 mg QHS PO 11/04/21 21:00 11/13/21 19:36 Memantine (Namenda) 5 mg DAILY PO 11/05/21 09:00 11/13/21 12:32 Quetiapine Fumarate (SEROquel) 12.5 mg HS PO 11/04/21 21:00 11/13/21 19:35 Sertraline HCl (Zoloft) 75 mg DAILY PO 11/05/21 09:00 11/13/21 12:32 Trazodone HCl (Desyrel) 25 mg PRN QHS PRN PO INSOMNIA, MAY REPEAT X1 11/04/21 17:30 11/06/21 21:36 Acetaminophen (Tylenol) 650 mg PRN Q6HRS PRN PO PAIN 11/04/21 18:15 11/13/21 20:03 Aspirin (Aspirin Enteric Coated) 81 mg DAILY PO 11/05/21 09:00 11/13/21 12:32 Cetirizine HCl (ZyrTEC) 10 mg DAILY PO 11/05/21 09:00 11/13/21 12:32 Lidocaine (Lidoderm) 1 patch DAILY TP 11/05/21 09:00 11/12/21 07:27 Lisinopril (Prinivil) 5 mg DAILY PO 11/05/21 09:00 11/07/21 08:50 DC 11/06/21 08:24 Al Hydroxide/Mg Hydroxide (Mylanta Plus Xs) 30 ml PRN QID PRN PO DYSPEPSIA 11/04/21 18:15 Atorvastatin Calcium (Lipitor) 40 mg DAILY PO 11/05/21 09:00 11/13/21 07:44 DC 11/12/21 07:26 Magnesium Hydroxide (Milk Of Magnesia) 2,400 mg PRN DAILY PRN PO CONSTIPATION 11/04/21 18:30 Multi-Ingredient Ointment (Analgesic [place]) 1 claudia PRN QID PRN TP MUSCLE PAIN 11/04/21 18:30 Multivitamins/ Calcium (Thera-M Plus) 1 tab DAILY PO 11/05/21 09:00 11/13/21 12:32 Miscellaneous (Lidoderm Patch Removal) 1 ea QHS MC 11/04/21 21:00 11/13/21 19:36 Throat Lozenges (Chloraseptic) 1 spray PRN Q2HR PRN PO SORE THROAT 11/08/21 11:00 11/11/21 09:00 Atorvastatin Calcium (Lipitor) 40 mg HS PO 11/13/21 21:00 11/13/21 19:35 Current Medications Medications (Trade) Dose Ordered Sig/Mayito Route PRN Reason Start Time Stop Time Status Last Admin Dose Admin Atorvastatin Calcium (Lipitor) 40 mg HS PO 11/13/21 21:00 11/13/21 19:35 I have reviewed the current psychotropics carefully including drug interactions. Risk benefit ratio favors no change other than as noted in my dictated progress note. Diagnosis: Problems: (1) Mild cognitive impairment (2) Anxiety disorder, unspecified (3) COVID-19 (4) Dementia, vascular, with depression (5) Dementia, vascular, with delusions (6) Dementia in Alzheimer's disease with depression (7) Dementia in Alzheimer's disease with delusions (8) Major neurocognitive disorder (9) Major depressive disorder, recurrent episode NÉSTOR WONG MD Nov 13, 2021 21:33
[2021-11-13 22:00] VITALS: BP 103/43
[2021-11-14] MEDS ORDERED: [UNRECOGNIZED DRUG - CODE] MM (01:09)
--- NOTE | 2021-11-14 02:48 | NUR ---
Nursing Note Pt calm and cooperative no behaviors. Resting well.
[2021-11-14 05:00] VITALS: BP 132/42
--- NOTE | 2021-11-14 07:24 | PDOC ---
Exam Note: Rip Note: This note is a late entry for 11/12/2021 covers elements not covered in my initial note. Subjective: The patient seen on telehealth rounds on 11/12/2021 with Magali HINKLE, discussed and reviewed the chart. Reviewed interim history and current functioning. Overall the patient is doing reasonably well. She states her has not called her but she is accepting of this. Review of Systems: No CV, , pulmonary, eye, ENT system symptoms on review. Ambulation impaired with walker. She spends much time in her bed. Mental Status Exam: The patient remains reasonably oriented. Speech is coherent. Abstraction fair. Computation impaired. Language function intact. Attention span short. Mood and affect appears euthymic, slightly anxious at times She is quite pleasant, verbal, interactive during telehealth rounds. Laboratory Data: Reviewed. Impression: Major neurocognitive disorder, Alzheimer, vascular with delusion, depression, behavioral disturbance. Anxiety disorder unspecified. Impulse control disorder unspecified. Plan: Continue current psychotropics. Assessment: Vital Signs/I&O: Vital Signs Date Time Temp Pulse Resp B/P (MAP) Pulse Ox O2 Delivery O2 Flow Rate FiO2 11/14/21 05:00 97.3 69 16 132/42 (72) 95 Room Air 11/11/21 00:22 98.0 I & O 11/13/21 11/13/21 11/14/21 15:00 23:00 07:00 Intake Total 360 ml 480 ml Balance 360 ml 480 ml Current Medications: Meds: Current Medications Medications (Trade) Dose Ordered Sig/Mayito Route PRN Reason Start Time Stop Time Status Last Admin Dose Admin Atorvastatin Calcium (Lipitor) 40 mg HS PO 11/13/21 21:00 11/13/21 19:35 I have reviewed the current psychotropics carefully including drug interactions. Risk benefit ratio favors no change other than as noted in my dictated progress note. Diagnosis: Problems: (1) Mild cognitive impairment (2) Anxiety disorder, unspecified (3) COVID-19 (4) Dementia, vascular, with depression (5) Dementia, vascular, with delusions (6) Dementia in Alzheimer's disease with depression (7) Dementia in Alzheimer's disease with delusions (8) Major neurocognitive disorder (9) Major depressive disorder, recurrent episode NÉSTOR WONG MD Nov 14, 2021 07:24
--- NOTE | 2021-11-14 07:43 | PDOC ---
Exam Note: Rip Note: This note is a late entry for 11/13/2021 covers elements not covered in my initial note. Subjective: The patient seen on telehealth rounds on 11/13/2021 with Nannette HINKLE, discussed and reviewed the chart. Reviewed interim history and current functioning. I questioned the patient closely whether her had called her and she said no, he had not but she was accepting of this. I did explain to her that perhaps he wanted her to recover from her Covid quarantine before he called her and she accepted. Review of Systems: No CV, , pulmonary, eye, ENT system symptoms on review. Reliability poor. Mental Status Exam: The patient is reasonably oriented. Speech is coherent. Abstraction fair. Computation impaired. Language function intact. Attention span short. Mood and affect appears euthymic, slightly anxious at times. She is quite pleasant and interactive. Laboratory Data: Reviewed. Impression: Major neurocognitive disorder, Alzheimer, vascular with delusion, depression, behavioral disturbance. Anxiety disorder unspecified. Impulse control disorder unspecified. Plan: Continue current psychotropics. Assessment: Vital Signs/I&O: Vital Signs Date Time Temp Pulse Resp B/P (MAP) Pulse Ox O2 Delivery O2 Flow Rate FiO2 11/14/21 05:00 97.3 69 16 132/42 (72) 95 Room Air 11/11/21 00:22 98.0 I & O 11/13/21 11/13/21 11/14/21 15:00 23:00 07:00 Intake Total 360 ml 480 ml Balance 360 ml 480 ml Current Medications: Meds: Current Medications Medications (Trade) Dose Ordered Sig/Mayito Route PRN Reason Start Time Stop Time Status Last Admin Dose Admin Alprazolam (Xanax) 0.25 mg QHS PO 11/04/21 21:00 11/13/21 20:03 Donepezil HCl (Aricept) 10 mg QHS PO 11/04/21 21:00 11/13/21 19:36 Memantine (Namenda) 5 mg DAILY PO 11/05/21 09:00 11/13/21 12:32 Quetiapine Fumarate (SEROquel) 12.5 mg HS PO 11/04/21 21:00 11/13/21 19:35 Sertraline HCl (Zoloft) 75 mg DAILY PO 11/05/21 09:00 11/13/21 12:32 Trazodone HCl (Desyrel) 25 mg PRN QHS PRN PO INSOMNIA, MAY REPEAT X1 11/04/21 17:30 11/06/21 21:36 Acetaminophen (Tylenol) 650 mg PRN Q6HRS PRN PO PAIN 11/04/21 18:15 11/13/21 20:03 Aspirin (Aspirin Enteric Coated) 81 mg DAILY PO 11/05/21 09:00 11/13/21 12:32 Cetirizine HCl (ZyrTEC) 10 mg DAILY PO 11/05/21 09:00 11/13/21 12:32 Lidocaine (Lidoderm) 1 patch DAILY TP 11/05/21 09:00 11/12/21 07:27 Lisinopril (Prinivil) 5 mg DAILY PO 11/05/21 09:00 11/07/21 08:50 DC 11/06/21 08:24 Al Hydroxide/Mg Hydroxide (Mylanta Plus Xs) 30 ml PRN QID PRN PO DYSPEPSIA 11/04/21 18:15 Atorvastatin Calcium (Lipitor) 40 mg DAILY PO 11/05/21 09:00 11/13/21 07:44 DC 11/12/21 07:26 Magnesium Hydroxide (Milk Of Magnesia) 2,400 mg PRN DAILY PRN PO CONSTIPATION 11/04/21 18:30 Multi-Ingredient Ointment (Analgesic [place]) 1 claudia PRN QID PRN TP MUSCLE PAIN 11/04/21 18:30 Multivitamins/ Calcium (Thera-M Plus) 1 tab DAILY PO 11/05/21 09:00 11/13/21 12:32 Miscellaneous (Lidoderm Patch Removal) 1 ea QHS MC 11/04/21 21:00 11/13/21 19:36 Throat Lozenges (Chloraseptic) 1 spray PRN Q2HR PRN PO SORE THROAT 11/08/21 11:00 11/11/21 09:00 Atorvastatin Calcium (Lipitor) 40 mg HS PO 11/13/21 21:00 11/13/21 19:35 Current Medications Medications (Trade) Dose Ordered Sig/Mayito Route PRN Reason Start Time Stop Time Status Last Admin Dose Admin Atorvastatin Calcium (Lipitor) 40 mg HS PO 11/13/21 21:00 11/13/21 19:35 I have reviewed the current psychotropics carefully including drug interactions. Risk benefit ratio favors no change other than as noted in my dictated progress note. Diagnosis: Problems: (1) Mild cognitive impairment (2) Anxiety disorder, unspecified (3) COVID-19 (4) Dementia, vascular, with depression (5) Dementia, vascular, with delusions (6) Dementia in Alzheimer's disease with depression (7) Dementia in Alzheimer's disease with delusions (8) Major neurocognitive disorder (9) Major depressive disorder, recurrent episode NÉSTOR WONG MD Nov 14, 2021 07:43
[2021-11-14] MEDS: ASPIRIN ENTERIC COATED 81 MG TABLET.DR. PO SCH (08:51)
[2021-11-14] MEDS: CETIRIZINE HCL 10 MG TABLET PO SCH (08:51)
[2021-11-14] MEDS: MEMANTINE 10 MG TABLET. PO SCH (08:52)
[2021-11-14] MEDS: SERTRALINE 50 MG TABLET. PO SCH (08:53)
[2021-11-14] MEDS: LIDOCAINE (700MG/PATCH) PATCH. TP SCH (08:58)
[2021-11-14 11:30] VITALS: BP 127/52
--- NOTE | 2021-11-14 12:42 | NUR ---
Nurse Day Shift Note: Pt presents with pleasant mood/affect. Pt is medication compliant. Pt is able to make needs known to staff. Pt's vitals are WNL. Pt is noted to be resting in bed in her room. Pt continues to have a good appetite. Will continue to monitor.
[2021-11-14 14:00] VITALS: BP 103/48
[2021-11-14] MEDS: ACETAMINOPHEN 325 MG TABLET PO PRN (15:16)
--- NOTE | 2021-11-14 16:56 | NUR ---
[facility] Social Work Discharge Planning Form Patient Name OTTONIEL HAM Admit Date: 03 October 2021 DISCHARGE PLAN Discharge Destination: [facility] Care Assessment: N/A Level II Assessment: N/A Transportation: Pt dtr Karri is to pick pt up around 1130 Special Instructions/Notes: Please fax discharge orders, discharge medication and discharge summary to the fax number listed below. DISCHARGE TO FACILITY Facility: [facility] (Assisted Living) Address: [address] [place] [address] Contact Name: Stephy Montague Marketing and Admissions: Contact Name: SAMANTA Blanchard: PCP: Dr. Arnol Valentin
[2021-11-14 18:00] VITALS: BP 105/48
[2021-11-14] MEDS ORDERED: ALPR0.254 PO (18:09)
[2021-11-14] MEDS: ALPRAZolam 0.25 MG TABLET PO SCH (20:26)
[2021-11-14] MEDS: DONEPEZIL HCL 10 MG TABLET PO SCH (20:26)
[2021-11-14] MEDS: QUEtiapine 25 MG TABLET. PO SCH (20:26)
[2021-11-14] MEDS: PATCH REMOVAL. MC SCH (20:26)
[2021-11-14] MEDS: ATORVASTATIN CALCIUM 20 MG TABLET PO SCH (20:26)
--- NOTE | 2021-11-14 21:36 | PDOC ---
Exam Note: Rip Note: Please also refer to the separate dictated note~for this date of service dictated separately.~Patient seen individually. Discussed the patient with Nursing staff reviewed the chart.~Reviewed interim history and current functioning. Reviewed vital signs,~Labs/ Radiology~and current medications noted below. Continue current treatment with the changes noted in the dictated addendum note Assessment: Vital Signs/I&O: Vital Signs Date Time Temp Pulse Resp B/P (MAP) Pulse Ox O2 Delivery O2 Flow Rate FiO2 11/14/21 18:00 98.4 75 16 105/48 (67) 96 Room Air 11/11/21 00:22 98.0 I & O 11/13/21 11/13/21 11/14/21 15:00 23:00 07:00 Intake Total 360 ml 480 ml Balance 360 ml 480 ml Current Medications: Meds: Current Medications Medications (Trade) Dose Ordered Sig/Mayito Route PRN Reason Start Time Stop Time Status Last Admin Dose Admin Alprazolam (Xanax) 0.25 mg QHS PO 11/04/21 21:00 11/14/21 20:26 Donepezil HCl (Aricept) 10 mg QHS PO 11/04/21 21:00 11/14/21 20:26 Memantine (Namenda) 5 mg DAILY PO 11/05/21 09:00 11/14/21 08:52 Quetiapine Fumarate (SEROquel) 12.5 mg HS PO 11/04/21 21:00 11/14/21 20:26 Sertraline HCl (Zoloft) 75 mg DAILY PO 11/05/21 09:00 11/14/21 08:53 Trazodone HCl (Desyrel) 25 mg PRN QHS PRN PO INSOMNIA, MAY REPEAT X1 11/04/21 17:30 11/06/21 21:36 Acetaminophen (Tylenol) 650 mg PRN Q6HRS PRN PO PAIN 11/04/21 18:15 11/14/21 15:16 Aspirin (Aspirin Enteric Coated) 81 mg DAILY PO 11/05/21 09:00 11/14/21 08:51 Cetirizine HCl (ZyrTEC) 10 mg DAILY PO 11/05/21 09:00 11/14/21 08:51 Lidocaine (Lidoderm) 1 patch DAILY TP 11/05/21 09:00 11/14/21 08:58 Lisinopril (Prinivil) 5 mg DAILY PO 11/05/21 09:00 11/07/21 08:50 DC 11/06/21 08:24 Al Hydroxide/Mg Hydroxide (Mylanta Plus Xs) 30 ml PRN QID PRN PO DYSPEPSIA 11/04/21 18:15 Atorvastatin Calcium (Lipitor) 40 mg DAILY PO 11/05/21 09:00 11/13/21 07:44 DC 11/12/21 07:26 Magnesium Hydroxide (Milk Of Magnesia) 2,400 mg PRN DAILY PRN PO CONSTIPATION 11/04/21 18:30 Multi-Ingredient Ointment (Analgesic [place]) 1 claudia PRN QID PRN TP MUSCLE PAIN 11/04/21 18:30 Multivitamins/ Calcium (Thera-M Plus) 1 tab DAILY PO 11/05/21 09:00 11/13/21 12:32 Miscellaneous (Lidoderm Patch Removal) 1 ea QHS MC 11/04/21 21:00 11/14/21 20:26 Throat Lozenges (Chloraseptic) 1 spray PRN Q2HR PRN PO SORE THROAT 11/08/21 11:00 11/11/21 09:00 Atorvastatin Calcium (Lipitor) 40 mg HS PO 11/13/21 21:00 11/14/21 20:26 I have reviewed the current psychotropics carefully including drug interactions. Risk benefit ratio favors no change other than as noted in my dictated progress note. Diagnosis: Problems: (1) Mild cognitive impairment (2) Anxiety disorder, unspecified (3) COVID-19 (4) Dementia, vascular, with delusions (5) Dementia in Alzheimer's disease with depression (6) Dementia in Alzheimer's disease with delusions (7) Major neurocognitive disorder (8) Major depressive disorder, recurrent episode (9) Dementia, vascular, with depression (10) Paranoid delusion NÉSTOR WONG MD Nov 14, 2021 21:36
[2021-11-14 22:20] VITALS: BP 93/55
--- NOTE | 2021-11-14 23:23 | NUR ---
Pt laying in her bed calmly this evening. Pleasant and cooperative. Compliant with whole medications.
[2021-11-15 06:19] VITALS: BP 130/55
[2021-11-15] MEDS: CETIRIZINE HCL 10 MG TABLET PO SCH (07:52)
[2021-11-15] MEDS: MULTIVITAMIN with MINERAL TABLET. PO SCH (07:52)
[2021-11-15] MEDS: ASPIRIN ENTERIC COATED 81 MG TABLET.DR. PO SCH (07:52)
[2021-11-15] MEDS: LIDOCAINE (700MG/PATCH) PATCH. TP SCH (07:52)
[2021-11-15] MEDS: SERTRALINE 50 MG TABLET. PO SCH (07:52)
[2021-11-15] MEDS: MEMANTINE 10 MG TABLET. PO SCH (07:52)
--- NOTE | 2021-11-15 08:19 | PDOC ---
Exam Note: Rip Note: This note is a late entry for 11/14/2021 covers elements not covered in my initial note. Subjective: The patient seen on telehealth rounds on 11/14/2021 with Luis RN with the camera around and Natalia HINKLE, discussed and reviewed the chart. Reviewed interim history and current functioning. The patient overall is doing reasonably well. Tentative discharge is for tomorrow to the [facility]. She remains a little anxious and I had discussed her discharge tomorrow. She is apprehensive that her family would not be able to visit her there because of distance from their home and the ice on the roads. Review of Systems: No CV, , pulmonary, eye, ENT system symptoms on review. Reliability poor. Mental Status Exam: The patient is oriented reasonably. Speech is coherent, rapid at times, anxious. Abstraction fair. Computation impaired. Language function intact. Mood and affect remains a little anxious but improved. Laboratory Data: Reviewed. Impression: Major neurocognitive disorder, Alzheimer, vascular with delusion, depression, behavioral disturbance. Anxiety disorder unspecified. Impulse control disorder unspecified. Plan: Continue current psychotropics. Assessment: Vital Signs/I&O: Vital Signs Date Time Temp Pulse Resp B/P (MAP) Pulse Ox O2 Delivery O2 Flow Rate FiO2 11/15/21 06:19 98.0 70 18 130/55 (80) 96 11/14/21 20:00 Room Air 11/11/21 00:22 98.0 I & O 11/14/21 11/14/21 11/15/21 15:00 23:00 07:00 Intake Total 360 ml 600 ml Balance 360 ml 600 ml Current Medications: Meds: Current Medications Medications (Trade) Dose Ordered Sig/Mayito Route PRN Reason Start Time Stop Time Status Last Admin Dose Admin Alprazolam (Xanax) 0.25 mg QHS PO 11/04/21 21:00 11/14/21 20:26 Donepezil HCl (Aricept) 10 mg QHS PO 11/04/21 21:00 11/14/21 20:26 Memantine (Namenda) 5 mg DAILY PO 11/05/21 09:00 11/15/21 07:52 Quetiapine Fumarate (SEROquel) 12.5 mg HS PO 11/04/21 21:00 11/14/21 20:26 Sertraline HCl (Zoloft) 75 mg DAILY PO 11/05/21 09:00 11/15/21 07:52 Trazodone HCl (Desyrel) 25 mg PRN QHS PRN PO INSOMNIA, MAY REPEAT X1 11/04/21 17:30 11/06/21 21:36 Acetaminophen (Tylenol) 650 mg PRN Q6HRS PRN PO PAIN 11/04/21 18:15 11/14/21 15:16 Aspirin (Aspirin Enteric Coated) 81 mg DAILY PO 11/05/21 09:00 11/15/21 07:52 Cetirizine HCl (ZyrTEC) 10 mg DAILY PO 11/05/21 09:00 11/15/21 07:52 Lidocaine (Lidoderm) 1 patch DAILY TP 11/05/21 09:00 11/15/21 07:52 Lisinopril (Prinivil) 5 mg DAILY PO 11/05/21 09:00 11/07/21 08:50 DC 11/06/21 08:24 Al Hydroxide/Mg Hydroxide (Mylanta Plus Xs) 30 ml PRN QID PRN PO DYSPEPSIA 11/04/21 18:15 Atorvastatin Calcium (Lipitor) 40 mg DAILY PO 11/05/21 09:00 11/13/21 07:44 DC 11/12/21 07:26 Magnesium Hydroxide (Milk Of Magnesia) 2,400 mg PRN DAILY PRN PO CONSTIPATION 11/04/21 18:30 Multi-Ingredient Ointment (Analgesic [place]) 1 claudia PRN QID PRN TP MUSCLE PAIN 11/04/21 18:30 Multivitamins/ Calcium (Thera-M Plus) 1 tab DAILY PO 11/05/21 09:00 11/15/21 07:52 Miscellaneous (Lidoderm Patch Removal) 1 ea QHS MC 11/04/21 21:00 11/14/21 20:26 Throat Lozenges (Chloraseptic) 1 spray PRN Q2HR PRN PO SORE THROAT 11/08/21 11:00 11/11/21 09:00 Atorvastatin Calcium (Lipitor) 40 mg HS PO 11/13/21 21:00 11/14/21 20:26 I have reviewed the current psychotropics carefully including drug interactions. Risk benefit ratio favors no change other than as noted in my dictated progress note. Diagnosis: Problems: (1) Mild cognitive impairment (2) Anxiety disorder, unspecified (3) COVID-19 (4) Dementia, vascular, with delusions (5) Dementia in Alzheimer's disease with depression (6) Dementia in Alzheimer's disease with delusions (7) Major neurocognitive disorder (8) Major depressive disorder, recurrent episode (9) Dementia, vascular, with depression NÉSTOR WONG MD Nov 15, 2021 08:19
--- NOTE | 2021-11-15 12:05 | NUR ---
Transition Record was faxed to follow-up provider with the following elements: Reason for admission, procedures, tests, principal diagnosis, pending studies, patient instructions, 21/05 contact information for unit, phone number to obtain pending test results, plan for follow-up care, physician follow-up, advanced directive information, and medication list with dose, duration and instructions. This information was included in the following documents: History and physical, lab results, study results, progress notes, social work planning form, DC instruction form, patient visit summary, and medication reconciliation form. Date & time record faxed: 11/15/21@[id number] Record faxed to: [facility] [phone] Record discussed with/ report given to: Winter [phone] @[facility]
[2021-11-15 12:19] VITALS: BP 109/60
== END 2021-11-15 12:05 | DRG 178 ==
LOC: 1 SOUTH 17:09 → LND 11-07 16:44
PROVIDERS: ADMIT Hospitalist; ATTEND Hospitalist
DX: U07.1 COVID-19 (principal); F01.51 Vascular dementia, unspecified severity, with behavioral disturbance; F02.81 Dementia in other diseases classified elsewhere, unspecified severity, with behavioral disturbance; F33.9 Major depressive disorder, recurrent, unspecified; F41.9 Anxiety disorder, unspecified; F63.9 Impulse disorder, unspecified; G30.9 Alzheimer's disease, unspecified; I10 Essential (primary) hypertension; M19.90 Unspecified osteoarthritis, unspecified site; Z87.891 Personal history of nicotine dependence
CPT/HCPCS: 36415; 80053; 85025